=== PATIENT | male | born 1950 | race Two or more races ===

== ENCOUNTER → 2020-11-22 14:32 | Outpatient (BNVA) | payer BC, SELFPAY | PROVIDERS: PCP Internal Medicine Geriatric Medicine; Visit Provider Urology ==

== ENCOUNTER → 2020-12-20 10:32 | Outpatient (BNVA) | payer BC, SELFPAY | PROVIDERS: PCP Internal Medicine Geriatric Medicine; Visit Provider Urology ==

== ENCOUNTER → 2021-07-27 11:57 | Outpatient (BNVA) | payer BC, SELFPAY | PROVIDERS: Visit Provider Urology ==

== ENCOUNTER → 2021-10-03 10:35 | Outpatient (REF) | payer BC, SELFPAY ==
--- NOTE | ~2021-10-03 | NM_ITS ---
EXAMINATION: NM BONE SCAN OF THE WHOLE BODY CLINICAL INFORMATION: Malignant neoplasm of prostate. COMPARISON: No prior bone scan or radiographs is available for comparison. TECHNIQUE: Multiple gamma scintillation camera images of the whole body were performed 2.75 hours following the intravenous administration of 26 mCi Tc-99m MDP. FINDINGS: In the head, there is a small faint focus of increased activity present just to the left of midline in the high frontoparietal skull, probably in the anterior parietal region. In the thoracic cage and upper extremities, there is minimally increased activity in the acromioclavicular and sternoclavicular joints bilaterally and in a small focus in the superior articular surface of the left humeral head. In the spine, there is a minimal thoracolumbar scoliosis with lumbar convexity to the right. In the pelvis, no significant abnormalities are present. In the lower extremities, there is a small medullary focus of increased activity in the distal left tibia just superior to the ankle. There is minimally increased activity in the proximal tibiofibular joints bilaterally, more prominently on the right. Also a very faint focus of increased activity is present in the mid right foot. No other definite bony abnormalities are noted. The urinary bladder and faint visualization of both kidneys are noted. NM/NH bone scan whole body IMPRESSION: 1. A small lesion likely medullary in location is present in the distal left tibia and this is nonspecific. The mild intensity and medullary location suggests this is a nonaggressive lesion such as an old bone infarct or enchondroma. Correlation with plain radiographs of the distal left tibia is recommended for initial follow-up. 2. A few additional mild nonspecific abnormalities are noted as described above and these are all likely arthritic or traumatic in etiology. None of these abnormalities is strongly suspicious for metastatic disease.
== END ==
LOC: HO.NUCMED 10:35
PROVIDERS: PCP Urology; Visit Provider Urology
DX: C61 Malignant neoplasm of prostate (principal); C79.51 Secondary malignant neoplasm of bone; R97.21 Rising PSA following treatment for malignant neoplasm of prostate
CPT/HCPCS: 78306; A9503

== ENCOUNTER → 2021-11-28 11:31 | Outpatient (BNVA) | payer BC, SELFPAY | PROVIDERS: PCP Internal Medicine Geriatric Medicine; Visit Provider Urology ==

== ENCOUNTER → 2022-04-26 09:01 | Outpatient (BNVA) | payer BC, SELFPAY | PROVIDERS: PCP Internal Medicine Geriatric Medicine; Visit Provider Urology | DX: C61 Malignant neoplasm of prostate (principal) | CPT/HCPCS: 96402; J9217 ==

== ENCOUNTER 2022-08-17 09:38 | Outpatient (REF) | payer BC, SELFPAY ==
[2022-08-17 10:59] LABS: Prostate Specific Antigen < 0.05 ng/mL (<0.05-4.0)
== END 2022-08-17 09:39 | disposition home or self-care (01) ==
LOC: HO.LAB 09:38
PROVIDERS: PCP Internal Medicine Geriatric Medicine; Visit Provider Urology
DX: Z12.5 Encounter for screening for malignant neoplasm of prostate (principal); C61 Malignant neoplasm of prostate
CPT/HCPCS: 36415; 84153

== ENCOUNTER 2022-10-23 09:33 | Outpatient (REF) | payer BC, SELFPAY ==
[2022-10-23 12:11] LABS: Prostate Specific Antigen < 0.10 ng/mL (<0.05-4.0)
[2022-10-29 10:28] LABS: Testosterone, Total 2 ng/dL (250-1100)
== END 2022-10-23 09:34 | disposition home or self-care (01) ==
LOC: HO.LAB 09:33
PROVIDERS: PCP Internal Medicine Geriatric Medicine; Visit Provider Urology
DX: Z12.5 Encounter for screening for malignant neoplasm of prostate (principal); R97.21 Rising PSA following treatment for malignant neoplasm of prostate
CPT/HCPCS: 36415; 84153; 84403

== ENCOUNTER → 2022-10-26 12:47 | Outpatient (BNVA) | payer BC, SELFPAY | PROVIDERS: PCP Internal Medicine Geriatric Medicine; Visit Provider Urology | DX: C61 Malignant neoplasm of prostate (principal); R97.21 Rising PSA following treatment for malignant neoplasm of prostate | CPT/HCPCS: 96402; J9217 ==

== ENCOUNTER → 2022-11-27 13:04 | Outpatient (BNVA) | payer BC, SELFPAY | PROVIDERS: PCP Internal Medicine Geriatric Medicine; Visit Provider Urology | DX: Z13.89 Encounter for screening for other disorder (principal) ==

== ENCOUNTER 2022-12-05 11:49 | Day surgery (SDC) | payer BC, SELFPAY ==
--- NOTE | ~2022-12-05 | XR_ITS ---
EXAMINATION: XR ABDOMEN KUB CLINICAL INDICATION: Left-sided renal stone COMPARISON: None TECHNIQUE: AP view of the abdomen. FINDINGS: No suspicious calcification overlying the expected position of either kidney or ureter. Phleboliths in the pelvis. Nonobstructive bowel gas pattern. Radiopaque seeds overlie the prostate. No acute osseous abnormality. XR/XR KUB IMPRESSION: No suspicious calcification to suggest renal or ureteral calculi.
[2022-12-05 07:56] VITALS: BP 140/59; PULSE 92; RESP 18; TEMP 36.3; O2SAT 96; BMI 27.6
[2022-12-05] MEDS: Lactated Ringers 1,000 ML 999 ML IV (08:34)
[2022-12-05 08:49] LABS: Glucose, Whole Blood 221 mg/dL (60-115)
--- NOTE | 2022-12-05 09:06 | HO.ANESPROP2 ---
HPI - Anesthesia Eval Consult details Narrative: 72yr old male with prostrate ca for lithotripsy PMFSH Active Problems Active Problems: All Active Problems (Updated 11/27/22 @ 14:27 by Fernie Mendenhall MD) Nephrolithiasis (Acute) Urinary hesitancy (Acute) Rising PSA following treatment for malignant neoplasm of prostate (Acute) Prostate cancer (Acute) Weak urinary stream (Acute) Past Medical History Medical History Benign prostatic hyperplasia with lower urinary tract symptoms Chronic renal insufficiency Erectile dysfunction Nocturia Poor urinary stream Prostate cancer Shingles Urgency incontinence Family History Family history of problems with anesthesia: No Surgical History History of Problems with Anesthesia: No Social History Social History Patient Tobacco Use Status: Former Tobacco user Use of substances other than those prescribed or required for medical reasons: No Advance Directives: No Advance Directives Information Provided: Yes Meds Allergies Allergy/AdvReac Type Severity Reaction Status Date / Time No Known Allergies Allergy Verified 11/27/22 13:05 Active Medications: Current Medications Lactated Ringer's (Lr) 1,000 mls @ 999 mls/hr IV .Q1H1M MOHAN Stop: 12/05/22 10:15 Home Medications Medication Instructions Recorded Confirmed Last Taken Type atorvastatin 20 mg tablet 20 mg PO DAILY 11/22/20 10/26/22 Unknown History pioglitazone 15 mg tablet 15 mg PO DAILY 11/22/20 10/26/22 Unknown History dulaglutide 3 mg/0.5 mL mg subcut 10/26/22 10/26/22 Unknown History subcutaneous pen injector (Trulicity) glimepiride 4 mg tablet 4 mg PO BID 10/26/22 10/26/22 Unknown History metformin 500 mg tablet 500 mg PO BID 10/26/22 10/26/22 Unknown History finasteride 5 mg tablet 5 mg PO DAILY 11/27/22 Unknown History Exam Exam Date and Time: December 05, 2022905 Height,Weight and Vital Signs: Height 5 ft 2 in Weight 68.492 kg Last Vital Signs Temp 97.4 F 12/05/22 07:56 Pulse 92 12/05/22 07:56 Resp 18 12/05/22 07:56 BP 140/59 H 12/05/22 07:56 Pulse Ox 96 02/15/23 07:56 O2 Del Method 12/05/22 07:56 Pertinent Lab Results Pertinent Lab Results: Laboratory Tests 12/05/22 07:54 POC Glucose 221 H Airway Mallampati Class: II TM Dist: >3cm Neck ROM: Full Loose/Missing/Broken Teeth: Yes and Upper Heart: rrr Lungs: cta Assessment and Plan Assessment Anesthesia Assessment: Anesthesia Plan Discussed and Chart Reviewed Final Anesthetic Review Family History of Problems with Anesthesia: No History of Problems with Anesthesia: No NPO: Yes ASA Class: III Final Preanesthetic Review: No Changes in Pt Med Stat, Meds/Allgs Chart Reviewed, Consent Obtained/Reviewed and Anes Risks/Benef Reviewed Patient Risk: Low Procedure Risk: Low Anesthetic Plan Anesthetic Plan: GA, MAC: and Agree w/ Assess. and Plan Disposition: Standard PACU
--- NOTE | 2022-12-05 10:03 | W.PM.OPN ---
Operative Note Operative Note Date of Service: 12/05/22 Narrative: PreOperative Diagnosis: left proximal ureter stone Post Operative Diagnosis: left proximal ureter stone Procedure: left ureteric ESWL Surgeon: Dr Fernie Mendenhall Anesthesia: mac/sedation Indications for procedure: The patient understands ESWL may be a staged procedure and subsequent intervention may be required based on imaging after ESWL. Quoted stone clearance rates for a solitary procedure are in the 70-80% range based primarily on stone location. They also understand there is a risk of bleeding to the kidney, infection, damage to adjacent organs, and stone migration following the procedure. - Imaging 6mm left proximal on CT Procedure: After informed consent was verified the patient was brought to the operating room and placed in a supine position. Anesthesia was performed per protocol. Safety pause time-out was performed. Imaging was displayed in the room and laterality confirmed. ESWL was performed. The 1st 500 shocks were performed at 60 hertz. These were performed with increasing power. Once maximum power was reached the rate was increased to 180 hertz. A total of 3000 shocks were given. Targeted imaging with ultrasound/fluoroscopy showed stone smudging suggestive of disintegration. The patient tolerated the procedure well and was transferred to the recovery area upon completion. Post procedure imaging will be organized. There was no evidence for flank discoloration.
[2022-12-05 10:30] VITALS: BP 132/75; PULSE 80; RESP 16; TEMP 36.6; O2SAT 96
[2022-12-05 10:45] VITALS: BP 144/82; PULSE 71; RESP 18; O2SAT 96
[2022-12-05 11:00] VITALS: BP 115/71; PULSE 78; RESP 18; TEMP 36.5; O2SAT 96
== END 2022-12-05 11:56 | disposition home or self-care (01) ==
LOC: HO.SSS 11:49
PROVIDERS: PCP Internal Medicine Geriatric Medicine; Visit Provider Urology
PROC: (CPT 50590; principal; 2022-12-05 09:10)
DX: N20.1 Calculus of ureter (principal); N40.1 Benign prostatic hyperplasia with lower urinary tract symptoms; C61 Malignant neoplasm of prostate; R97.21 Rising PSA following treatment for malignant neoplasm of prostate; R39.11 Hesitancy of micturition; N18.9 Chronic kidney disease, unspecified; N52.9 Male erectile dysfunction, unspecified; Z79.899 Other long term (current) drug therapy
CPT/HCPCS: 50590; 74018; 82947; J0131; J1940; J3010

== ENCOUNTER 2023-01-09 07:38 | Outpatient (REF) | payer BC, SELFPAY ==
--- NOTE | ~2023-01-09 | US_ITS ---
EXAMINATION: US RETROPERITONEAL LIMITED (RENAL ONLY) CLINICAL INFORMATION: Calculus of kidney. COMPARISON: X-ray KUB 12/05/2022. TECHNIQUE: Real-time imaging of the kidneys. FINDINGS: RIGHT KIDNEY: 10.0 x 5.5 x 4.2 cm (SAG x AP x TRV). The kidney is normal in size, contour, and echogenicity. Renal cortical thickness is normal. 8mm simple appearing upper pole cyst which warrants no follow-up imaging. There is mild pelvic fullness versus a 2 cm parapelvic cyst. No renal calculi. LEFT KIDNEY: 11.8 x 5.6 x 3.9 cm (SAG x AP x TRV). The kidney is normal in size, contour, and echogenicity. Renal cortical thickness is normal. No calculi or focal parenchymal lesions. No hydronephrosis. US/US renal BI IMPRESSION: 1. No renal calculi or hydronephrosis of either kidney. 2. Mild fullness of the right renal pelvis versus a 2 cm parapelvic cyst.
== END 2023-01-09 07:39 | disposition home or self-care (01) ==
LOC: HO.US 07:38
PROVIDERS: PCP Internal Medicine Geriatric Medicine; Visit Provider Urology
DX: N20.0 Calculus of kidney (principal)
CPT/HCPCS: 76775

== ENCOUNTER → 2023-01-23 10:27 | Outpatient (BNVA) | payer BC, SELFPAY | PROVIDERS: PCP Internal Medicine Geriatric Medicine; Visit Provider Urology | DX: Z13.89 Encounter for screening for other disorder (principal) ==

== ENCOUNTER 2023-02-01 08:32 | Outpatient (REF) | payer BC, SELFPAY ==
[2023-02-01 09:45] LABS: Alanine Aminotransferase 34 U/L (0-40); Albumin Level 4.3 g/dL (3.5-5.0); Alkaline Phosphatase 80 U/L (39-117); Anion Gap 10 (12-20); Aspartate Amino Transferase 28 U/L (5-37); Bilirubin Total 0.6 mg/dL (0.0-1.0); Blood Urea Nitrogen 28 mg/dL (9-16); Calcium 9.7 mg/dL (8.4-10.2); Carbon Dioxide 27 mmol/L (22-29); Chloride 108 mmol/L (96-108); Cholesterol 147 mg/dL; Estimated Glomerular Filt Rate 36; Glucose Random 137 mg/dL (60-115); HDL Cholesterol 32 mg/dL; LDL Cholesterol Calculated 81 mg/dl; Potassium 4.4 mmol/L (3.3-5.1); Sodium 141 mmol/L (135-145); Total Protein 6.5 g/dL (6.5-8.0); Triglycerides 172 mg/dL
[2023-02-01 10:45] LABS: Creatinine Urine 127.63 mg/dL
== END 2023-02-01 08:33 | disposition home or self-care (01) ==
LOC: HO.LAB 08:32
PROVIDERS: Visit Provider Internal Medicine Geriatric Medicine
DX: E11.69 Type 2 diabetes mellitus with other specified complication (principal)
CPT/HCPCS: 36415; 80053; 80061

== ENCOUNTER 2023-04-10 08:36 | Outpatient (REF) | payer BC, SELFPAY ==
[2023-04-10 11:46] LABS: Prostate Specific Antigen < 0.10 ng/mL (<0.05-4.0)
[2023-04-15 21:48] LABS: Testosterone, Total 4 ng/dL (250-1100)
== END 2023-04-10 08:37 | disposition home or self-care (01) ==
LOC: HO.LAB 08:36
PROVIDERS: PCP Internal Medicine Geriatric Medicine; Visit Provider Urology
DX: Z12.5 Encounter for screening for malignant neoplasm of prostate (principal); C61 Malignant neoplasm of prostate
CPT/HCPCS: 36415; 84153; 84403

== ENCOUNTER → 2023-04-18 13:42 | Outpatient (BNVA) | payer BC, SELFPAY | PROVIDERS: Visit Provider Urology | DX: R97.21 Rising PSA following treatment for malignant neoplasm of prostate (principal); C61 Malignant neoplasm of prostate | CPT/HCPCS: 96402; J9217 ==

== ENCOUNTER 2023-07-16 08:37 | Outpatient (REF) | payer BC, SELFPAY ==
[2023-07-16 10:34] LABS: Prostate Specific Antigen < 0.10 ng/mL (<0.05-4.0)
[2023-07-21 15:13] LABS: Testosterone, Total 2 ng/dL (250-1100)
== END 2023-07-16 08:38 | disposition home or self-care (01) ==
LOC: HO.LAB 08:37
PROVIDERS: PCP Internal Medicine Geriatric Medicine; Visit Provider Urology
DX: Z12.5 Encounter for screening for malignant neoplasm of prostate (principal); R97.21 Rising PSA following treatment for malignant neoplasm of prostate
CPT/HCPCS: 36415; 84153; 84403

== ENCOUNTER 2023-07-26 12:24 | Outpatient (AMB) | payer BC, SELFPAY ==
--- NOTE | 2023-07-26 12:51 | MHC.OFFVIS ---
Intake Intake Visit Reasons: 3M PSA/TESTOSTERONE(set) Intake Note: Patient is Present for Follow Up labs Urology Medication: Doxazosin, Eligard(Q6M) Antibiotic Allergies: None Blood Thinners: None Pharmacy: [facility] Medications Patient states he has not recieved Doxazosin refills states that he needs to have refill. Patient will be traveling soon and does not want to have urinary issues while traveling. Patient states that he has been having some frequency issues. [employer] Required: No Accompanied by: Self / Same As Patient Allergies No Known Allergies Allergy (Verified 07/26/23 12:56) Medication List - Last Reconciled 07/26/23 by Fernie Mendenhall MD atorvastatin 20 mg PO DAILY doxazosin 4 mg PO BEDTIME 90 days dulaglutide (Trulicity) mg subcut empagliflozin (Jardiance) 10 mg PO DAILY glimepiride 4 mg PO BID leuprolide acetate (6 month) (Eligard) 45 mg subcut [id number] metformin 500 mg PO BID naproxen 500 mg PO BID PRN 7 days pioglitazone 15 mg PO DAILY tramadol 50 mg PO Q6H PRN tramadol 50 mg PO Q8H PRN HPI HPI Comments History of Present Illness Details Jamir Cormier is a very pleasant male. He is a patient of Dr. Stevens in [place]. He is seen for the following urologic conditions - prostate cancer - 2020 rising PSA therapy intermittent hormones - urinary hesitancy - nephrolithiasis Lab work stable Responds well to doxazosin refill provided Going to do reason for 2 week vacation oxybutynin given Continue Q 4 month lab work Nephrolithiasis Initial diagnosis through [facility] Emergency Room October 2022 Imaging - 12/13 5 mm right proximal stone with mild hydroureteronephrosis - 01/10 renal ultrasound evidence of stones Intervention' - 12/13 right ESWL Therapeutic plan - encourage fluids Prostate cancer: Low-grade, initial therapy brachytherapy 2013 rising PSA 2020 - Current therapy intermittent hormones - Last GnRH 04/12 04/12 Intermittent hormone therapy final GnRH 04/12 <0.1 T 4, 07/13 <0.1 T2 Prostate cancer was diagnosed 06/2013. PSA 4.6, volume 40 cc. Stage TI C.. The Kamilla grade is 3+3. TNM Classification of Malignant Tumours (TNM) T1c. Initial therapy included 11/03 brachytherapy urethral dose 63 chan, followup x-ray with no seed migration., PSA 4.6 Secondary therapy Initial GnRH 05/11, 11/12 Recent labs included a PSA (prostate-specific antigen) August 2014 1.5, May 2015 2.6, December 2015 3.7, start finasteride , March 2016 1.7, start bicalutamide , Sep 05 0.6 *stop bicalutamide 02/04 2.1, 06/06 2.1 - not on anything 12/08 , a PSA (prostate-specific antigen) 1.5, 11/08 1.2, 11/09 1.7, 11/10 2.4 on finasteride, 12/11 2.4 finasterdide, 07/11 4.4 off finasteride, 12/12 3.7, 04/11 4.1, 08/11 4.1, 11/12 <0.1 Recent imaging included 12/08 , a bone scan, with no evidence of metastasis. - 10/10 Bone Scan - repeat imaging no evidence of metastatic disease Erectile dysfunction Severity of the symptoms that is moderate. [facility] Medical History Chronic renal insufficiency Shingles Nocturia Poor urinary stream Benign prostatic hyperplasia with lower urinary tract symptoms Urgency incontinence Erectile dysfunction Prostate cancer Social History Patient Tobacco Use Status: Former Tobacco user Review of Systems Const Denies chills and Denies fever(s) Card Reports no additional complaints and Denies syncope Resp Denies cough GI Denies abdominal pain and Denies heartburn Reports as per HPI and Denies change in libido Neuro Denies syncope Psych Denies change in libido Endo Denies change in libido Physical Exam Const General: cooperative, healthy appearing, comfortable and no acute distress Orientation/consciousness: patient oriented x3 HEENT Face and sinus: Yes normal facial exam Mouth: moist mucous membranes Neck Neck: Yes normal visual inspection, Yes full ROM and Yes trachea midline Chest Chest palpation & inspection: normal inspection of the chest Resp Effort & Inspection: normal respiratory effort, able to speak in complete sentences and no respiratory distress GI Inspection: Yes normal to inspection Back/Spine/Pelvis Cervical Spine: normal cervical lordosis Thoracic/Lumbar Spine: thoracic and lumbar spine normal to inspection Skin General skin exam: no rashes or lesions noted Neuro General: patient oriented x3, gait normal, tone normal and moves all extremities Extrem General: Yes normal to inspection and Yes capillary refill normal Assessment & Plan Assessment & Plan (1) Nephrolithiasis: Code(s): N20.0 - Calculus of kidney (2) Urinary hesitancy: Code(s): R39.11 - Hesitancy of micturition (3) Rising PSA following treatment for malignant neoplasm of prostate: Code(s): R97.21 - Rising PSA following treatment for malignant neoplasm of prostate Plan 4 month follow-up Orders: Orders Prostate Specific Antigen 4 Months R97.21 - Rising PSA following treatment for malignant neoplasm of prostate Medications: New oxybutynin chloride ER for vacation 5 mg PO DAILY 30 tabs 1RF 30 days N32.81 - Overactive bladder, R39.11 - Hesitancy of micturition, R39.15 - Urgency of urination Refilled doxazosin 4 mg PO BEDTIME 90 tabs 1RF 90 days N13.8 - Other obstructive and reflux uropathy, N40.1 - Benign prostatic hyperplasia with lower urinary tract symptoms, R97.21 - Rising PSA following treatment for malignant neoplasm of prostate Patient Instructions: Imaging studies, laboratory and physical exam results were discussed and reviewed in detail. No major barriers to patient understanding were identified. An opportunity to ask questions regarding the treatment plan was provided. All questions were answered. The patient expressed understanding and agreement with the above treatment plan. The patient is aware they should contact our office by phone for worsening of their current condition or the appearance of new urologic symptoms. Compliance is encouraged with any medications and followup testing that is ordered. It is a privilege to participate in the urologic care of your patient. If you have any questions or concerns regarding treatment for the above conditions, or other urologic issues, please do not hesitate to contact me. The office telephone contact is [phone]. This note is constructed using voice recognition software. While every effort has been made to ensure accuracy science intern errors may have been included. Yours sincerely, Dr Fernie Mendenhall MD, [facility] - Urology Providers of Expert, Compassionate Care for the Genitourinary System Coding Level of Care Code Est Pt Level 4 (19277) Diagnoses Nephrolithiasis N20.0 Urinary hesitancy R39.11 Rising PSA following treatment for malignant neoplasm of prostate R97.21
== END 2023-07-26 13:41 | disposition home or self-care (01) ==
PROVIDERS: PCP Internal Medicine Geriatric Medicine; Visit Provider Urology
DX: N20.0 Calculus of kidney (principal); R39.11 Hesitancy of micturition; R97.21 Rising PSA following treatment for malignant neoplasm of prostate
CPT/HCPCS: 99214

== ENCOUNTER → 2023-07-26 12:24 | Outpatient (BNVA) | payer BC, SELFPAY | PROVIDERS: PCP Internal Medicine Geriatric Medicine; Visit Provider Urology ==

== ENCOUNTER 2023-09-09 08:40 | Outpatient (REF) | payer BC, SELFPAY ==
[2023-09-09 11:13] LABS: MANUAL DIFF FLAG NO
[2023-09-09 11:38] LABS: Basophils Absolute Auto 0.1 X10*3/uL (0.0-0.2); Basophils Percent Auto 1.1 % (0-2); Eosinophils Absolute Auto 0.1 X10*3/uL (0.0-0.4); Eosinophils Percent Auto 2.2 % (0-4); Hematocrit 41.7 % (42.0-52.0); Hemoglobin 12.9 g/dl (14.0-18.0); Imm Gran Abs Auto 0.04 X10*3/uL (0.00-0.03); Imm Gran Pct Auto 0.7 % (0.0-0.4); Lymphocytes Absolute Auto 1.3 X10*3/uL (1.2-4.9); Lymphocytes Percent Auto 24.3 % (20-40); Mean Corpuscular HGB Conc 30.9 g/dl (31.0-36.0); Mean Corpuscular Hemoglobin 27.1 pg (27.0-33.0); Mean Corpuscular Volume 87.6 fL (80.0-98.0); Mean Platelet Volume 11.6 fL (9.4-12.4); Monocytes Absolute Auto 0.5 X10*3/uL (0.1-1.2); Neutrophils Absolute Auto 3.3 x10*3/uL (2.0-8.3); Neutrophils Percent Auto 62.7 % (45-73); Platelet Count 235 X10*3/uL (160-400); Red Blood Count 4.76 X10*6/uL (4.60-5.80); Red Cell Distribution Width 13.6 % (11.0-16.0); White Blood Count 5.3 X10*3/uL (4.8-10.8)
[2023-09-09 12:49] LABS: Anion Gap 12 (12-20); Blood Urea Nitrogen 25 mg/dL (9-16); Calcium 10.2 mg/dL (8.4-10.2); Carbon Dioxide 27 mmol/L (22-29); Chloride 109 mmol/L (96-108); Estimated Glomerular Filt Rate 46; Glucose Random 117 mg/dL (60-115); Potassium 5.3 mmol/L (3.3-5.1); Sodium 143 mmol/L (135-145)
== END 2023-09-09 08:41 | disposition home or self-care (01) ==
LOC: HO.HHCL 08:40
PROVIDERS: Visit Provider Internal Medicine Geriatric Medicine
DX: N18.31 Chronic kidney disease, stage 3a (principal)
CPT/HCPCS: 36415; 80048; 85025

== ENCOUNTER 2023-11-21 16:50 | Outpatient (REF) | payer BC, SELFPAY ==
[2023-11-21 17:50] LABS: Prostate Specific Antigen < 0.10 ng/mL (<0.05-4.0)
== END 2023-11-21 16:51 | disposition home or self-care (01) ==
LOC: HO.LAB 16:50
PROVIDERS: PCP Internal Medicine Geriatric Medicine; Visit Provider Urology
DX: Z12.5 Encounter for screening for malignant neoplasm of prostate (principal); R97.21 Rising PSA following treatment for malignant neoplasm of prostate
CPT/HCPCS: 36415; 84153

== ENCOUNTER 2023-11-26 13:33 | Outpatient (AMB) | payer BC, SELFPAY ==
--- NOTE | 2023-11-26 14:09 | A.OFFVIS_ITS ---
Intake Intake Visit Reasons: 4m/PSA(set) Intake Note: Patient is Present for Follow Up PSA Urology Medication: Doxazosin, Oxybutynin, Antibiotic Allergies: None Blood Thinners: None Allergies No Known Allergies Allergy (Verified 07/26/23 12:56) Medication List - Last Reconciled 11/26/23 by Fernie Mendenhall MD atorvastatin 20 mg PO DAILY doxazosin 4 mg PO BEDTIME 90 days dulaglutide (Trulicity) mg subcut empagliflozin (Jardiance) 10 mg PO DAILY glimepiride 4 mg PO BID leuprolide acetate (6 month) (Eligard) 45 mg subcut [id number] metformin 500 mg PO BID naproxen 500 mg PO BID PRN 7 days oxybutynin chloride ER 5 mg PO DAILY 30 days pioglitazone 15 mg PO DAILY tramadol 50 mg PO Q6H PRN tramadol 50 mg PO Q8H PRN HPI HPI Comments History of Present Illness Details Jamir Cormier is a very pleasant male. He is a patient of Dr. Steevns in [place]. He is seen for the following urologic conditions - prostate cancer - 2020 rising PSA ther apy intermittent hormones - urinary hesitancy - nephrolithiasis Lab work stable - PSA remains undetectable Continue Q 4 month lab work Nephrolithiasis Initial diagnosis through [facility] Emergency Room October 2022 Imaging - 12/13 5 mm right proximal stone with mi ld hydroureteronephrosis - 01/10 renal ultrasound evidence of ston es Intervention' - 12/13 right ESWL Therapeutic plan - encourage fluids Prostate cancer: Low-grade, initial therapy brachytherapy 2013 rising PSA 2020 - Current therapy intermittent hormones - Last GnRH 04/12 04/12 Intermittent hormone therapy cycle - final GnRH 04/12 <0.1 T 4, 07/13 <0.1 T2, 12/14 <0.1 Prostate cancer was diagnosed 06/2013. PSA 4.6, volume 40 cc. Stage TI C.. The Kamilla grade is 3+3. TNM Classification of Malignant Tumours (TNM) T1c. Initial therapy included 11/03 brachytherapy urethral dose 63 chan, followup x-ray with no seed migration., PSA 4.6 Secondary therapy Initial GnRH 05/11, 11/12, 05/12 Recent labs included a PSA (prostate-specific antigen) August 2014 1.5, May 2015 2.6, December 2015 3.7, start finasteride , March 2016 1.7, start bicalutamide , Sep 05 0.6 *stop bicalutamide 02/04 2.1, 06/06 2.1 - not on anything 12/08 , a PSA (prostate-specific antigen) 1.5, 11/08 1.2, 11/09 1.7, 11/10 2.4 on finasteride, 12/11 2.4 finasterdide, 07/11 4.4 off finasteride, 12/12 3.7, 04/11 4.1, 08/11 4.1, 11/12 <0.1, 12/14 <0.1 Recent imaging included 12/08 , a bone scan, with no evidence of metastasis. - 10/10 Bone Scan - repeat imaging no evidence of metastatic disease Erectile dysfunction Severity of the symptoms that is moderate. [facility] Medical History Chronic renal insufficiency Shingles Nocturia Poor urinary stream Benign prostatic hyperplasia with lower urinary tract symptoms Urgency incontinence Erectile dysfunction Prostate cancer Social History Patient Tobacco Use Status: Former Tobacco user Review of Systems Const Denies chills and Denies fever(s) Card Reports no additional complaints and Denies syncope Resp Denies cough GI Denies abdominal pain and Denies heartburn Reports as per HPI and Denies change in libido Neuro Denies syncope Psych Denies change in libido Endo Denies change in libido Physical Exam Const General: cooperative, healthy appearing, comfortable and no acute distress Orientation/consciousness: patient oriented x3 HEENT Face and sinus: Yes normal facial exam Mouth: moist mucous membranes Neck Neck: Yes normal visual inspection, Yes full ROM and Yes trachea midline Chest Chest palpation & inspection: normal inspection of the chest Resp Effort & Inspection: normal respiratory effort, able to speak in complete sentences and no respiratory distress GI Inspection: Yes normal to inspection Back/Spine/Pelvis Cervical Spine: normal cervical lordosis Thoracic/Lumbar Spine: thoracic and lumbar spine normal to inspection Skin General skin exam: no rashes or lesions noted Neuro General: patient oriented x3, gait normal, tone normal and moves all extremities Extrem General: Yes normal to inspection and Yes capillary refill normal Assessment & Plan Assessment & Plan (1) Prostate cancer: Comment: Low-grade prostate cancer initial therapy brachytherapy 2013 rising PSA 2018 Code(s): C61 - Malignant neoplasm of prostate Plan Four month follow-up lab work tele Orders: Orders Prostate Specific Antigen 4 Months C61 - Malignant neoplasm of prostate Testosterone, Total 4 Months C61 - Malignant neoplasm of prostate Patient Instructions: Imaging studies, laboratory and physical exam results were discussed and reviewed in detail. No major barriers to patient understanding were identified. An opportunity to ask questions regarding the treatment plan was provided. All questions were answered. The patient expressed understanding and agreement with the above treatment plan. The patient is aware they should contact our office by phone for worsening of their current condition or the appearance of new urologic symptoms. Compliance is encouraged with any medications and followup testing that is ordered. It is a privilege to participate in the urologic care of your patient. If you have any questions or concerns regarding treatment for the above conditions, or other urologic issues, please do not hesitate to contact me. The office telephone contact is [phone]. This note is constructed using voice recognition software. While every effort has been made to ensure accuracy boxing trainer errors may have been included. Yours sincerely, Dr Fernie Mendenhall MD, [facility] - Urology Providers of Expert, Compassionate Care for the Genitourinary System Coding Level of Care Code Est Pt Level 3 (78132) Diagnoses Prostate cancer C61
== END 2023-11-26 14:26 | disposition home or self-care (01) ==
PROVIDERS: PCP Internal Medicine Geriatric Medicine; Visit Provider Urology
DX: C61 Malignant neoplasm of prostate (principal)
CPT/HCPCS: 99213

== ENCOUNTER → 2023-11-26 13:33 | Outpatient (BNVA) | payer BC, SELFPAY | PROVIDERS: PCP Internal Medicine Geriatric Medicine; Visit Provider Urology ==

== ENCOUNTER 2024-01-08 09:32 | Outpatient (REF) | payer BC, SELFPAY ==
[2024-01-08 12:22] LABS: Prostate Specific Antigen < 0.10 ng/mL (<0.05-4.0)
[2024-01-14 02:43] LABS: Testosterone, Total 4 ng/dL (250-1100)
== END 2024-01-08 09:33 | disposition home or self-care (01) ==
LOC: HO.HHCL 09:32
PROVIDERS: Visit Provider Urology
DX: Z12.5 Encounter for screening for malignant neoplasm of prostate (principal); C61 Malignant neoplasm of prostate
CPT/HCPCS: 36415; 84153; 84403

== ENCOUNTER 2024-01-30 09:38 | Outpatient (REF) | payer BC, SELFPAY ==
--- NOTE | ~2024-01-30 | XR_ITS ---
EXAMINATION: XR CERVICAL SPINE CLINICAL INFORMATION: Chronic neck pain. COMPARISON: None available. TECHNIQUE: 6 views of the cervical spine. FINDINGS: The bones are diffusely demineralized. Surgical sutures at the left lung apex. Advanced degenerative changes with loss of disc space height and hypertrophic change at C5-C6 and C6-C7. XR/XR cervical spine 4V IMPRESSION: Advanced degenerative disc disease at C5-C6 and C6-C7.
== END 2024-01-30 09:39 | disposition home or self-care (01) ==
LOC: HO.XRAY 09:38
PROVIDERS: PCP Internal Medicine Geriatric Medicine; Visit Provider Internal Medicine Geriatric Medicine
DX: M54.2 Cervicalgia (principal); G89.29 Other chronic pain
CPT/HCPCS: 72050

== ENCOUNTER 2024-03-26 10:29 | Outpatient (AMB) | payer BC, SELFPAY ==
--- NOTE | 2024-03-26 10:34 | MHC.OFFVIS ---
Intake Visit Reasons: 4m/labs(set) Intake Note: Patient is Present for Telephone Follow Up Urology Med: Oxybutynin, Doxazosin Antibiotic Allergy: None Blood Thinner: None Allergies No Known Allergies Allergy (Verified 03/26/24 10:35) HPI Comments Details: Jamir Cormier is a very pleasant male. He is a patient of Dr. Hines. He is seen for the following urologic conditions - prostate cancer - 2020 rising PSA therapy intermittent hormones - urinary hesitancy - nephrolithiasis Telemedicine Evaluation 15 min Consultation [employer] Lab work stable - PSA remains undetectable q6 month f/u 01/11 <0.1, 4 Nephrolithiasis Initial diagnosis through [facility] Emergency Room October 2022 Imaging - 12/13 5 mm right proximal stone with mild hydroureteronephrosis - 01/10 renal ultrasound evidence of stones Intervention' - 12/13 right ESWL Therapeutic plan - encourage fluids Prostate cancer: Low-grade, initial therapy brachytherapy 2013 rising PSA 2020 - Current therapy intermittent hormones - Last GnRH 04/12 04/12 Intermittent hormone therapy cycle - final GnRH 04/12 <0.1 T 4, 07/13 <0.1 T2, 12/14 <0.1 Prostate cancer was diagnosed 06/2013. PSA 4.6, volume 40 cc. Stage TI C.. The Kamilla grade is 3+3. TNM Classification of Malignant Tumours (TNM) T1c. Initial therapy included 11/03 brachytherapy urethral dose 63 chan, followup x-ray with no seed migration., PSA 4.6 Secondary therapy Initial GnRH 05/11, 11/12, 05/12 Recent labs included a PSA (prostate-specific antigen) August 2014 1.5, May 2015 2.6, December 2015 3.7, start finasteride , March 2016 1.7, start bicalutamide , Sep 05 0.6 *stop bicalutamide 02/04 2.1, 06/06 2.1 - not on anything 12/08 , a PSA (prostate-specific antigen) 1.5, 11/08 1.2, 11/09 1.7, 11/10 2.4 on finasteride, 12/11 2.4 finasterdide, 07/11 4.4 off finasteride, 12/12 3.7, 04/11 4.1, 08/11 4.1, 11/12 <0.1, 12/14 <0.1 Recent imaging included 12/08 , a bone scan, with no evidence of metastasis. - 10/10 Bone Scan - repeat imaging no evidence of metastatic disease Erectile dysfunction Severity of the symptoms that is moderate. [facility] Medical History Chronic renal insufficiency Shingles Nocturia Poor urinary stream Benign prostatic hyperplasia with lower urinary tract symptoms Urgency incontinence Erectile dysfunction Prostate cancer Social History Patient Tobacco Use Status: Former Tobacco user Review of Systems Const All systems reviewed & are unremarkable except as noted in HPI and below Reports no additional complaints Resp Reports no additional complaints GI Reports no additional complaints Reports as per HPI Musc Reports no additional complaints Physical Exam Telemedicine evaluation Appropriate responses Regular breathing rate and rhythm HEENT Head: Yes normal to inspection Ears: hearing grossly normal bilaterally Eyes General: appearance normal, both eyes and all related structures Neck Neck: Yes normal visual inspection Chest Chest palpation & inspection: normal inspection of the chest Resp Effort & Inspection: normal respiratory effort and able to speak in complete sentences Telehealth Telehealth Telehealth Platform: [employer] Location of provider rendering services: practice address Location of patient: address on file Patient Identification confirmed using: Name, : Yes Telehealth method: video Patient verbally consented to treatment: Yes Patient verbally consented to billing insurance company: Yes Patient informed of any privacy concerns related to visit: Yes Minutes spent on Phone/Video with Pt.: 15 Assessment & Plan Assessment & Plan (1) Prostate cancer: Comment: Low-grade prostate cancer initial therapy brachytherapy 2013 rising PSA 2018 Code(s): C61 - Malignant neoplasm of prostate Category: Medical (2) Nephrolithiasis: Code(s): N20.0 - Calculus of kidney Category: Medical Plan Six-month follow-up T and PSA Office Orders: Orders Testosterone, Total 6 Months R97.21 - Rising PSA following treatment for malignant neoplasm of prostate Prostate Specific Antigen 6 Months R97.21 - Rising PSA following treatment for malignant neoplasm of prostate Patient Instructions: Imaging studies, laboratory and physical exam results were discussed and reviewed in detail. No major barriers to patient understanding were identified. An opportunity to ask questions regarding the treatment plan was provided. All questions were answered. The patient expressed understanding and agreement with the above treatment plan. The patient is aware they should contact our office by phone for worsening of their current condition or the appearance of new urologic symptoms. Compliance is encouraged with any medications and followup testing that is ordered. It is a privilege to participate in the urologic care of your patient. If you have any questions or concerns regarding treatment for the above conditions, or other urologic issues, please do not hesitate to contact me. The office telephone contact is [phone]. This note is constructed using voice recognition software. While every effort has been made to ensure accuracy limousine driver errors may have been included. Yours sincerely, Dr Fernie Mendenhall MD, [facility] - Urology Providers of Expert, Compassionate Care for the Genitourinary System Coding Level of Care Code Tele Est Pt Level 3 (34781) Diagnoses Prostate cancer C61 Nephrolithiasis N20.0
== END 2024-03-26 11:03 | disposition home or self-care (01) ==
LOC: HO.HUSH 10:30
PROVIDERS: PCP Internal Medicine Geriatric Medicine; Visit Provider Urology
DX: C61 Malignant neoplasm of prostate (principal); N20.0 Calculus of kidney
CPT/HCPCS: 99442

== ENCOUNTER 2024-08-13 09:15 | Outpatient (REF) | payer BC, SELFPAY ==
[2024-08-13 11:06] LABS: MANUAL DIFF FLAG NO
[2024-08-13 11:12] LABS: Basophils Percent Auto 0.5 % (0-2); Eosinophils Absolute Auto 0.1 X10*3/uL (0.0-0.4); Eosinophils Percent Auto 1.3 % (0-4); Hematocrit 45.1 % (42.0-52.0); Hemoglobin 14.1 g/dl (14.0-18.0); Imm Gran Abs Auto 0.03 X10*3/uL (0.00-0.03); Imm Gran Pct Auto 0.5 % (0.0-0.4); Lymphocytes Absolute Auto 1.3 X10*3/uL (1.2-4.9); Lymphocytes Percent Auto 20.6 % (20-40); Mean Corpuscular HGB Conc 31.3 g/dl (31.0-36.0); Mean Corpuscular Hemoglobin 26.7 pg (27.0-33.0); Mean Corpuscular Volume 85.3 fL (80.0-98.0); Mean Platelet Volume 11.4 fL (9.4-12.4); Monocytes Absolute Auto 0.5 X10*3/uL (0.1-1.2); Monocytes Percent Auto 8.5 % (2-11); Neutrophils Absolute Auto 4.4 x10*3/uL (2.0-8.3); Neutrophils Percent Auto 68.6 % (45-73); Platelet Count 213 X10*3/uL (160-400); Red Blood Count 5.29 X10*6/uL (4.60-5.80); Red Cell Distribution Width 13.7 % (11.0-16.0); White Blood Count 6.4 X10*3/uL (4.8-10.8)
[2024-08-13 11:30] LABS: Alanine Aminotransferase 33 U/L (0-40); Albumin Level 4.4 g/dL (3.5-5.0); Alkaline Phosphatase 93 U/L (39-117); Anion Gap 14 (12-20); Aspartate Amino Transferase 34 U/L (5-37); Bilirubin Total 0.8 mg/dL (0.0-1.0); Blood Urea Nitrogen 25 mg/dL (9-16); Calcium 10.1 mg/dL (8.4-10.2); Carbon Dioxide 26 mmol/L (22-29); Chloride 109 mmol/L (96-108); Cholesterol 130 mg/dL (<200); Estimated Glomerular Filt Rate 40; Glucose Random 162 mg/dL (60-115); HDL Cholesterol 30 mg/dL (>40); LDL Cholesterol Calculated 54 mg/dL (<100); Potassium 5.4 mmol/L (3.3-5.1); Sodium 144 mmol/L (135-145); Total Protein 7.1 g/dL (6.5-8.0); Triglycerides 232 mg/dL (<150)
[2024-08-13 11:49] LABS: Creatinine Urine 137.88 mg/dL; Microalbum/Creatinine Ratio Ur 10.1 ug/mg cr (<30)
== END 2024-08-13 09:16 | disposition home or self-care (01) ==
LOC: HO.HHCL 09:15
PROVIDERS: Visit Provider Internal Medicine Geriatric Medicine
DX: E11.69 Type 2 diabetes mellitus with other specified complication (principal); N18.31 Chronic kidney disease, stage 3a; M54.2 Cervicalgia; G89.29 Other chronic pain
CPT/HCPCS: 36415; 80053; 80061; 82043; 82570; 85025

== ENCOUNTER 2024-09-22 16:17 | Outpatient (REF) | payer MEDICARE, SELFPAY ==
[2024-09-22 18:35] LABS: Prostate Specific Antigen 1.09 ng/mL (<0.05-4.0)
[2024-09-22 19:04] LABS: Anion Gap 10 (12-20); Blood Urea Nitrogen 22 mg/dL (9-16); Carbon Dioxide 28 mmol/L (22-29); Chloride 104 mmol/L (96-108); Estimated Glomerular Filt Rate 40; Glucose Random 389 mg/dL (60-115); Potassium 4.3 mmol/L (3.3-5.1); Sodium 138 mmol/L (135-145)
[2024-09-27 15:17] LABS: Testosterone, Total 275 ng/dL (250-1100)
== END 2024-09-22 16:18 | disposition home or self-care (01) ==
LOC: HO.LAB 16:17
PROVIDERS: PCP Internal Medicine Geriatric Medicine; Visit Provider Urology
DX: N18.31 Chronic kidney disease, stage 3a (principal); E87.5 Hyperkalemia; R97.21 Rising PSA following treatment for malignant neoplasm of prostate; Z12.5 Encounter for screening for malignant neoplasm of prostate
CPT/HCPCS: 36415; 80048; 84153; 84403

== ENCOUNTER 2024-09-25 13:53 | Outpatient (AMB) | payer MEDICARE, SELFPAY ==
--- NOTE | 2024-09-25 14:03 | A.OFFVIS_ITS ---
Intake Visit Reasons: 6m/labs Intake Note: Patient is Present for 6M Follow Up/LABS Urology Med:NONE Antibiotic Allergy: None Blood Thinner: None Landscape Maintenance Internship Required: No Allergies No Known Allergies Allergy (Verified 09/25/24 14:05) HPI Comments Details: Jamir Cormier is a very pleasant male. He is a patient of Dr. Hines. He is seen for the following urologic conditions - prostate cancer - 2020 rising PSA therapy intermittent hormones - urinary hesitancy - nephrolithiasis Six-month review PSA starting to rise 1.[address] PET 4 month follow-up PSA 01/11 <0.1, 4, 10/13 1.1 Nephrolithiasis Initial diagnosis through [facility] Emergency Room October 2022 Imaging - 12/13 5 mm right proximal stone with mild hydroureteronephrosis - 01/10 renal ultrasound evidence of stones Intervention' - 12/13 right ESWL Therapeutic plan - encourage fluids Prostate cancer: Low-grade, initial therapy brachytherapy 2013 rising PSA 2020 - Current therapy intermittent hormones - Last GnRH 04/12 04/12 Intermittent hormone therapy cycle - final GnRH 04/12 <0.1 T 4, 07/13 <0.1 T2, 12/14 <0.1 Prostate cancer was diagnosed 06/2013. PSA 4.6, volume 40 cc. Stage TI C.. The Kamilla grade is 3+3. TNM Classification of Malignant Tumours (TNM) T1c. Initial therapy included 11/03 brachytherapy urethral dose 63 chan, followup x-ray with no seed migration., PSA 4.6 Secondary therapy Initial GnRH 05/11, 11/12, 05/12 Recent labs included a PSA (prostate-specific antigen) August 2014 1.5, May 2015 2.6, December 2015 3.7, start finasteride , March 2016 1.7, start bicalutamide , Sep 05 0.6 *stop bicalutamide 02/04 2.1, 06/06 2.1 - not on anything 12/08 , a PSA (prostate-specific antigen) 1.5, 11/08 1.2, 11/09 1.7, 11/10 2.4 on finasteride, 12/11 2.4 finasterdide, 07/11 4.4 off finasteride, 12/12 3.7, 04/11 4.1, 08/11 4.1, 11/12 <0.1, 12/14 <0.1 Recent imaging included 12/08 , a bone scan, with no evidence of metastasis. - 10/10 Bone Scan - repeat imaging no evidence of metastatic disease Erectile dysfunction Severity of the symptoms that is moderate. [facility] Medical History Chronic renal insufficiency Shingles Nocturia Poor urinary stream Benign prostatic hyperplasia with lower urinary tract symptoms Urgency incontinence Erectile dysfunction Prostate cancer Social History Patient Tobacco Use Status: Former Tobacco user Review of Systems Const Denies chills and Denies fever(s) Card Reports no additional complaints and Denies syncope Resp Denies cough GI Denies abdominal pain and Denies heartburn Reports as per HPI and Denies change in libido Neuro Denies syncope Psych Denies change in libido Endo Denies change in libido Physical Exam Const General: cooperative, healthy appearing, comfortable and no acute distress Orientation/consciousness: patient oriented x3 HEENT Face and sinus: Yes normal facial exam Mouth: moist mucous membranes Neck Neck: Yes normal visual inspection, Yes full ROM and Yes trachea midline Chest Chest palpation & inspection: normal inspection of the chest Resp Effort & Inspection: normal respiratory effort, able to speak in complete sentences and no respiratory distress GI Inspection: Yes normal to inspection Back/Spine/Pelvis Cervical Spine: normal cervical lordosis Thoracic/Lumbar Spine: thoracic and lumbar spine normal to inspection Skin General skin exam: no rashes or lesions noted Neuro General: patient oriented x3, gait normal, tone normal and moves all extremities Extrem General: Yes normal to inspection and Yes capillary refill normal Assessment & Plan Assessment & Plan (1) Prostate cancer: Comment: Low-grade prostate cancer initial therapy brachytherapy 2013 rising PSA 2018 Code(s): C61 - Malignant neoplasm of prostate Category: Medical Plan PET-CT Four month follow-up PSA Orders: Orders PET CT fusion skull to thigh Today C61 - Malignant neoplasm of prostate, R97.21 - Rising PSA following treatment for malignant neoplasm of prostate Prostate Specific Antigen 4 Months R97.21 - Rising PSA following treatment for malignant neoplasm of prostate Patient Instructions: Imaging studies, laboratory and physical exam results were discussed and reviewed in detail. No major barriers to patient understanding were identified. An opportunity to ask questions regarding the treatment plan was provided. All questions were answered. The patient expressed understanding and agreement with the above treatment plan. The patient is aware they should contact our office by phone for worsening of their current condition or the appearance of new urologic symptoms. Compliance is encouraged with any medications and followup testing that is ordered. It is a privilege to participate in the urologic care of your patient. If you have any questions or concerns regarding treatment for the above conditions, or other urologic issues, please do not hesitate to contact me. The office telephone contact is [phone]. This note is constructed using voice recognition software. While every effort has been made to ensure accuracy women nurse errors may have been included. Yours sincerely, Dr Fernie Mendenhall MD, [facility] - Urology Providers of Expert, Compassionate Care for the Genitourinary System Coding Level of Care Code Est Pt Level 4 (47855) Diagnoses Prostate cancer C61
== END 2024-09-25 14:43 | disposition home or self-care (01) ==
PROVIDERS: PCP Internal Medicine Geriatric Medicine; Visit Provider Urology
DX: Z13.9 Encounter for screening, unspecified (principal); C61 Malignant neoplasm of prostate
CPT/HCPCS: 99214

== ENCOUNTER → 2024-09-25 13:53 | Outpatient (BNVA) | payer MEDICARE, SELFPAY | PROVIDERS: PCP Internal Medicine Geriatric Medicine; Visit Provider Urology | DX: C61 Malignant neoplasm of prostate (principal) | CPT/HCPCS: 81003; 99212 ==

== ENCOUNTER 2024-11-27 10:16 | Outpatient (REF) | payer MEDICARE, SELFPAY ==
--- OUTSIDE RECORDS SUMMARY | 2024-11-27 11:11 | XMS_ITS | Encounter Summary ---
Author Organization [employer] Address [address] [place] [address] Care Team Providers Care Cs Associate Name Role Phone Name, Baltazar CARO Primary Care Provider Reason for Visit * Reason Onset Date Comments Created In Error 07/17/2024 Encounter Details Date Type Department Care Team ([facility] st Contact Info) Description 07/17/2024 Telephone [facility] MEDICINE [address] [place], [place] [phone] Name, MD Baltazar [address] [place] [address] Created In Error Social History Tobacco Use Types Packs/Day Years Used Date Smoking Tobacco: Never Smokeless Tobacco: Never Alcohol Use Standard Drinks/Week Comments Never 0 (1 standard drink = 0.6 oz pur e alcohol) Depression Answer Date Recorded Patient Health Questionnaire-9 Score 0 01/10/2024 Patient Health Questionnaire-9 Score 0 01/10/2024 Last PHQ-9: Questionnaire Data Not on file 0 01/10/2024 Housing Stability Answer Date Recorded What is your housing situation today? I have hieu ramos 01/10/[address] you li ve. Do you have problems with any of the following? None of the above 01/10/2024 Food Insecurity Answer Date Recorded Within the past 12 months, y ou worried that your food would run out before you got money to buy more: Never True 01/10/2024 Within the past 12 months,th e food you bought just didn't last and you didn't have enough money to get more: Never True Transportation Answer Date Recorded In the past 12 months, has l ack of transportation kept you from medical appts, meetings, work or from getting things needed for daily living? No 01/10/2024 Utilities Answer Date Recorded In the past 12 months, has t he electric, gas, oil or water company threatened to shut off services in your home? No 01/10/2024 Depression Answer Date Recorded Patient Health Questionnaire-2 Score 0 01/10/2024 Sex and Gender Information Value Date Recorded Sex Assigned at Male 08/20/2022 10:34 AM EDT Legal Sex Male 10:34 AM EDT Gender Identity Male 08/20/2022 10:34 AM EDT Sexual Orientation Straight 08/20/2022 10 :34 AM EDT documented as of this encounter Plan of Treatment Upcoming Encounters Date Type Department Care Team (Late st Contact Info) Description 12/01/2024 4:00 PM EST Office Visit [facility] MEDICINE [address] [place] [address] Name, MD Baltazar [address] [place] [address] 12/04/2024 9:00 AM EST Clinical Support [facility] DIABETES/NUTRITION [address] [place] [address] [place] [address] documented as of this encounter Visit Diagnoses Not on filedocumented in this encounter Additional Health Concerns Assessment Noted Time PHQ-9 Depression Total Score: 0 01/10/20 24 3:12 PM EDT documented as of this encounter Care Teams Cs Associate Relationship Specialty Start Date End Date NameBaltazar MD [address] [place] [phone] PCP - General Family Medicine 10/03/18 documented as of this encounter
--- OUTSIDE RECORDS SUMMARY | 2024-11-27 11:11 | XMS_ITS | Encounter Summary ---
Author Organization [employer] Address [address] [place] [address] Care Team Providers Care Beef Pusher Name Role Phone Name, Baltazar CARO Primary Care Provider [phone] Reason for Visit * Reason Onset Date Comments Med Refill 07/30/2023 Encounter Details Date Type Department Care Team ([facility] st Contact Info) Description 07/30/2023 Telephone [facility] MEDICINE [address] [place], [place] [phone] Name, MD Baltazar [address] [place] [address] Med Refill Social History Tobacco Use Types Packs/Day Years Used Date Smoking Tobacco: Never Smokeless Tobacco: Never Alcohol Use Standard Drinks/Week Comments Never 0 (1 standard drink = 0.6 oz pur e alcohol) Depression Answer Date Recorded Patient Health Questionnaire-9 Score 0 10/10/2022 Housing Stability Answer Date Recorded What is your housing situation today? I have hieu ramos 07/30/[address] you li ve. Do you have problems with any of the following? None of the above 07/30/2023 Food Insecurity Answer Date Recorded Within the past 12 months, y ou worried that your food would run out before you got money to buy more: Never True 07/30/2023 Within the past 12 months,th e food you bought just didn't last and you didn't have enough money to get more: Never True 07/2023 Transportation Answer Date Recorded In the past 12 months, has l ack of transportation kept you from medical appts, meetings, work or from getting things needed for daily living? No 07/30/2023 Utilities Answer Date Recorded In the past 12 months, has t he electric, gas, oil or water company threatened to shut off services in your home? No 07/30/2023 Depression Answer Date Recorded Patient Health Questionnaire-2 Score 0 10/10/2022 Sex and Gender Information Value Date Recorded Sex Assigned at Male 08/20/2022 10:34 AM EDT Legal Sex Male 10:34 AM EDT Gender Identity Male 08/20/2022 10:34 AM EDT Sexual Orientation Straight 08/20/2022 10 :34 AM EDT documented as of this encounter Miscellaneous Notes * Telephone Encounter - Ila Roberts - 08/02/2023 10:48 AM EDT Tc from [facility] states metFORMIN (Glucophage) 500 MG tablet was supposed to be sent to [facility]/pharmacy #[id number] * Telephone Encounter - Abbi Harding LPN - 07/31/2023 12:29 PM EDT Please review request I don't see any documentation that medication was increased. * Telephone Encounter - Elissa Templeton - 07/31/2023 12:16 PM EDT TC from [facility] requesting a med refill on metFORMIN (Glucophage) 500 MG tablet pt is using medication1 tab twice a day. Script said 1 tab a day. Please to change directions. Please to be sent to [facility] Pharmacy. PCP DR. Hines documented in this encounter Plan of Treatment Upcoming Encounters Date Type Department Care Team (Late st Contact Info) Description 12/01/2024 4:00 PM EST Office Visit [facility] MEDICINE [address] [place] [address] Name, MD Baltazar [address] [place] [address] 12/04/2024 9:00 AM EST Clinical Support [facility] DIABETES/NUTRITION [address] [place], [place] [phone] Donna Whitman [address] [place], [place] [phone] documented as of this encounter Visit Diagnoses Not on filedocumented in this encounter Additional Health Concerns Assessment Noted Time PHQ-9 Depression Total Score: 0 10/10/20 22 3:39 PM EST documented as of this encounter Care Teams Beef Pusher Relationship Specialty Start Date End Date Name, MD Baltazar [address] [place], [place] [phone] PCP - General Family Medicine 10/03/18 documented as of this encounter
--- OUTSIDE RECORDS SUMMARY | 2024-11-27 11:11 | XMS_ITS | Encounter Summary ---
Author Organization [employer] Address [address] [place] [address] Care Team Providers Care Air Analyst Name Role Phone Name, Baltazar CARO Primary Care Provider [phone] Reason for Visit * Reason Onset Date Comments Nurse Triage 07/12/2023 Encounter Details Date Type Department Care Team ([facility] st Contact Info) Description 07/12/2023 Telephone [facility] MEDICINE [address] [place], [place] [phone] Name, MD Baltazar [address] [place] [address] Nurse Triage Social History Tobacco Use Types Packs/Day Years [...] encounter Miscellaneous Notes * Telephone Encounter - Kaykay Nelson RN - 07/12/2023 10:33 AM EDT Triage call with [facility] [place] [id number] Pt PORTILLO Patton, reports concern for Pt. 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 Pt has loss of appetite, when Pt eats becomes nauseous, no vomiting. Pt has lost about 10 lbs at this time. Pt is drinking liquids well. Pt has had increased tiredness/fatigue. These symptoms have been increasing for last month. Pt is neg for fever, ARNOLD symptoms. Neg for difficulty breathing, edema, or heart changes. Advised to obtain OTC supplemental drinks such as ensure if needed. Pt is offered an apt with provider but requests pcp only. Pt will be traveling to [place] and returning 08/03/23. No apts available prior to travel with PCP. Apt with PCP 08/07/23 @ 315pm. Protocol Used: Weakness (Generalized) and Fatigue (Adult) Protocol-Based Disposition: See in Office or Video Visit within 2 Weeks Positive Triage Question: * Fatigue is a chronic symptom (recurrent or ongoing AND present > 4 weeks) * All higher-acuity triage questions were negative Care Advice Discussed: * Reasons To Call Back - Unable to stand or walk - Passes out - Breathing difficulty occurs - You become worse * Telephone Encounter - Kaela Coon - 07/12/2023 9:12 AM EDT Symptom: Lethargic (Tired) Outcome: Schedule an urgent appointment (within 4 hours) or talk to a nurse or provider soon Reason: Getting worse, vomiting , trouble eating. The caller accepted this outcome Please contact at [phone] or [phone] [place] documented in this encounter Plan of Treatment Upcoming Encounters Date Type Department Care Team (Late st Contact Info) Description 12/01/2024 4:00 PM EST Office Visit [facility] MEDICINE [address] [place] [address] Name, MD Baltazra [address] [place] [address] 12/04/2024 9:00 AM EST Clinical Support [facility] DIABETES/NUTRITION [address] [place], [place] [phone] Donna Whitman RD [address] [place] [address] documented as of this encounter Visit Diagnoses Not on filedocumented in this encounter Additional Health Concerns Assessment Noted Time PHQ-9 Depression Total Score: 0 10/10/20 22 3:39 PM EST documented as of this encounter Care Teams Air Analyst Relationship Specialty Start Date End Date Baltazar Hines MD [address] [place] [phone] PCP - General Family Medicine 10/03/18 documented as of this encounter
--- OUTSIDE RECORDS SUMMARY | 2024-11-27 11:11 | XMS_ITS | Encounter Summary ---
Author Organization [facility] Address [address] [place] [address] Care Team Providers Care Development Technician Name Role Phone Name, Baltazar CARO Primary Care Provider [phone] Reason for Visit * Reason Comments Med Refill Encounter Details Date Type Department Care Team (Late st Contact Info) Description 07/14/[address] [facility] MEDICINE [address] [place] [address] [phone] NameBaltazar MD [address] [place] [address] [phone] Social History Tobacco Use Types Packs/Day Years Used Date Smoking Tobacco: Never Smokeless Tobacco: Never Alcohol Use Standard Drinks/Week Comments Never 0 (1 standard drink = 0.6 oz pur e alcohol) Depression Answer Date Recorded Patient Health Questionnaire-9 Score 0 10/10/2022 Depression Answer Date Recorded Patient Health Questionnaire-2 [...] Description 12/01/2024 4:00 PM EST Office Visit [facility] MEDICINE [address] [place] [address] [phone] Baltazar Hines MD [address] [place] [address] [phone] 12/04/2024 9:00 AM EST Clinical Support [facility] DIABETES/NUTRITION [address] [place], [place] [phone] Donna Whitman RD [address] [place], [place] [phone] documented as of this encounter Visit Diagnoses Not on filedocumented in this encounter Additional Health Concerns Assessment Noted Time PHQ-9 Depression Total Score: 0 10/10/20 22 3:39 PM EST documented as of this encounter Care Teams Development Technician Relationship Specialty Start Date End Date Name, MD Baltazar [address] [place] [address] PCP - General Family Medicine 10/03/18 documented as of this encounter
--- OUTSIDE RECORDS SUMMARY | 2024-11-27 11:12 | XMS_ITS | Encounter Summary ---
Author Organization [employer] Address [address] [place] [address] Care Team Providers Care Lpn Rn Hospice Name Role Phone Name, aBltazar CARO Primary Care Provider [phone] Reason for Visit * Reason Comments Med Refill Encounter Details Date Type Department Care Team ([facility] st Contact Info) Description 11/09/2024 Refill [facility] MEDICINE [address] [place], [place] [phone] Name, MD Baltazar [address] [place] [address] Social History Tobacco Use Types Packs/Day Years [...] Description 12/01/2024 4:00 PM EST Office Visit [facility] MEDICINE [address] [place] [phone] NameBaltazar MD [address] [place] [address] 12/04/2024 9:00 AM EST Clinical Support [facility] DIABETES/NUTRITION [address] [place] [phone] [place] [address] documented as of this encounter Visit Diagnoses Not on filedocumented in this encounter Additional Health Concerns Assessment Noted Time PHQ-9 Depression Total Score: 0 01/10/20 24 3:12 PM EDT documented as of this encounter Care Teams Lpn Rn Hospice Relationship Specialty Start Date End Date NameBaltazar MD [address] [place] [phone] PCP - General Family Medicine 10/03/18 documented as of this encounter
--- OUTSIDE RECORDS SUMMARY | 2024-11-27 11:12 | XMS_ITS | Encounter Summary ---
Author Organization [employer] Address [address] [employer] [address] 7 [place] [address] Care Team Providers Care Mud Plant Operator Name Role Phone Name, Baltazar CARO Primary Care Provider [phone] Encounter Details Date Type Department Care Team (Latest Contact Info) Description 11/10/2024 Travel Social History Tobacco Use Types Packs/Day Years [...] Description 12/01/2024 4:00 PM EST Office Visit [facility] [address] [place] [address] Name, MD Baltazar [address] [place] [address] 12/04/2024 9:00 AM EST Clinical Support [facility]NUTRITION [address] [place] [address] [place] [address] documented as of this encounter Visit Diagnoses Not on filedocumented in this encounter Additional Health Concerns Assessment Noted Time PHQ-9 Depression Total Score: 0 01/10/20 24 3:12 PM EDT documented as of this encounter Care Teams Mud Plant Operator Relationship Specialty Start Date End Date Name, MD Baltazar [address] [place] [address] PCP - General Family Medicine 10/03/18 documented as of this encounter
--- OUTSIDE RECORDS SUMMARY | 2024-11-27 11:12 | XMS_ITS | Encounter Summary ---
Author Organization [employer] Address [address] [place] [address] Care Team Providers Care Maintenance Team Member Name Role Phone Name, Baltazar CARO Primary Care Provider [phone] Reason for Visit * Reason Onset Date Comments Med Refill 03/04/2024 Encounter Details Date Type Department Care Team (Late st Contact Info) Description 03/04/2024 Refill [facility] [address] [place], [place] [phone] Name, MD Baltazar [address] [place] [address] Social History Tobacco Use Types Packs/Day Years [...] Description 12/01/2024 4:00 PM EST Office Visit [facility] [address] [place] [address] Name, MD Baltazar [address] [place] [address] 12/04/2024 9:00 AM EST Clinical Support [facility] [address] [place] [address] [place] [address] documented as of this encounter Visit Diagnoses Not on filedocumented in this encounter Additional Health Concerns Assessment Noted Time PHQ-9 Depression Total Score: 0 01/10/20 24 3:12 PM EDT documented as of this encounter Care Teams Maintenance Team Member Relationship Specialty Start Date End Date NameBaltazar MD [address] [place] [address] PCP - General Family Medicine 10/03/18 documented as of this encounter
--- OUTSIDE RECORDS SUMMARY | 2024-11-27 11:12 | XMS_ITS | Encounter Summary ---
Author Organization [employer] Address [address] [facility] 7 [place] [address] Care Team Providers Care Furnace Cleaner Name Role Phone Name, Baltazar CARO Primary Care Provider Encounter Details Date Type Department Care Team (Latest Contact Info) Description 11/04/2024 Travel Social History Tobacco Use Types Packs/Day [...] Description 12/01/2024 4:00 PM EST Office Visit [facility] [address] [place] [address] Name, MD Baltazar [address] [place] [address] 12/04/2024 9:00 AM EST Clinical Support [facility] DIABETES/NUTRITION [address] [place] [address] [place] [address] documented as of this encounter Visit Diagnoses Not on filedocumented in this encounter Additional Health Concerns Assessment Noted Time PHQ-9 Depression Total Score: 0 01/10/20 24 3:12 PM EDT documented as of this encounter Care Teams Furnace Cleaner Relationship Specialty Start Date End Date Name, MD Baltazar [address] [place] [address] PCP - General Family Medicine 10/03/18 documented as of this encounter
--- OUTSIDE RECORDS SUMMARY | 2024-11-27 11:12 | XMS_ITS | Encounter Summary ---
Author Organization [employer] Address [address] [place] [address] Care Team Providers Care Dna Analyst Name Role Phone Name, Baltazar CARO Primary Care Provider [phone] Reason for Visit * Reason Onset Date Comments Medication Question 02/04/2024 Encounter Details Date Type Department Care Team ([facility] st Contact Info) Description 02/04/2024 Telephone [facility] [address] [place], [place] [phone] Name, MD Baltazar [address] [place] [address] Medication Question Social History Tobacco Use Types Packs/Day Years [...] encounter Miscellaneous Notes * Telephone Encounter - Leti Becerril RN - 02/05/2024 2:22 PM EDT Return T/C for below message from , advised to speak with the pharmacist where pt.. usually refill his prescription to get more thorough details about interaction with another medication. verbally agreed and understood. * Telephone Encounter - Leti Becerril RN - 02/05/2024 1:55 PM EDT Return T/C to pt. For below message, No answer. LVM to call back on [phone]. * Telephone Encounter - Kaela Coon - 02/04/2024 10:26 AM EDT Tc from pt spouse requesting a call back, states has OTC probiotics and would like to know if Pt isokay to take. Please contact at [phone] French documented in this encounter Plan of Treatment Upcoming Encounters Date Type Department Care Team (Late st Contact Info) Description 12/01/2024 4:00 PM EST Office Visit [facility] [address] [place] [address] Name, MD Baltazar [address] [place] [address] 12/04/2024 9:00 AM EST Clinical Support [facility] DIABETES/NUTRITION [address] [place], [place] [phone] Donna Whitman RD [address] [place] [address] documented as of this encounter Visit Diagnoses Not on filedocumented in this encounter Additional Health Concerns Assessment Noted Time PHQ-9 Depression Total Score: 0 01/10/20 24 3:12 PM EDT documented as of this encounter Care Teams Dna Analyst Relationship Specialty Start Date End Date Name, [place] [address] PCP - General Family Medicine 10/03/18 documented as of this encounter
--- OUTSIDE RECORDS SUMMARY | 2024-11-27 11:12 | XMS_ITS | Clinical Summary ---
Author Organization [employer] Address [address] [place] [address] [place], [place] [address] Care Team Providers Care Gear Shaper Set Up Operator Name Role Phone Name, Baltazar CARO Primary Care Provider [phone] Allergies No known active allergies Medications leuprolide, 6-month, (Eligard) 45 MG injection Active metFORMIN (Glucophage) 500 MG tablet Take 1 tablet (500 mg) by mouth with breakfast and with evening meal. 180 tablet 2 08/19/20 24 025 Active atorvastatin (Lipitor) 20 MG tablet TAKE 1 TABLET BY MOUTH EVERY DAY 90 tablet 1 08/19/20 24 Active Dulaglutide (Trulicity) 4.5 MG/0.5ML solution auto-injector Indications:T ype 2 diabetes mellitus with other specified complication, without long-term current use of insulin ([facility]) Inject 4.5 mg under the skin 1 (one) time per week. 2 mL 3 08/19/20 24 025 Active glucose blood (OneTouch Verio) test stripIndicati ons:Type 2 diabetes mellitus with other specified complication, without long-term current use of insulin ([facility]) Use one test strip to check blood sugar by subcutaneous route once per day. DiagnosisType 2 diabetes mellitus with other complication without use of insuliln ([facility]) Code: E11.69 100 strip 3 08/21/20 24 Active Veltassa 8.4 g pack DISSOLVE 1 PACKET AND TAKE BY MOUTH ONCE DAILY 30 each 11/10/19 25 Active Patiromer Sorbitex Calcium 8.4 g pack Take 8.4 g by mouth Once per day. 30 each 10/08/20 24 025 Discontinued Active Problems Problem Noted Date Diagnosed Date Stage 3a chronic kidney disease (CKD) 09/08/2022 Paralysis of diaphragm 09/08/2022 Type 2 diabetes mellitus with other specified co mplication 10/03/2018 Assessment & Plan (09/29/2024 8:10 AM EST): POCT glucose 153 A1C 8.7 Dietary and exercise counseling Patient to continue with prescribed meds-Trulicity to 4.5 weekly & metformin 500 mg bid Referral to utility bill collector Obstructive sleep apnea syndrome 10/03/2018 Malignant tumor of prostate 10/03/2018 Encounters Date Type Department Care Team Description 11/10/2024 9:00 AM EST Nutrition [facility] DIABETES/NUTRITION [address] [place] [address] Type 2 diabetes mellitus with other specified complication, without long-term current use of insulin (CMS/HCC) 11/10/2024 Travel 11/09/2024 Refill [facility] MEDICINE [address] [place] [address] Baltazar Hines MD 11/04/2024 Travel 10/08/2024 Telephone [facility] [address] [place] [address] Baltazar Hines MD Med Refill 09/25/2024 3:30 PM EST Office Visit [address] [address] Lona Dsouza FNP Type 2 diabetes mellitus with other specified complication, without long-term current use of insulin ([facility]) (Primary Dx) 09/24/2024 Telephone [facility] MEDICINE [address] [place] [address] Lani Mayo MA Chart Prep 09/22/[address] [address] Sallie Lacy NP 09/22/2024 Orders Only GENERIC EXTERNAL DATA DEPARTMENT Provider, Generic External Data 09/18/2024 Travel 09/15/2024 Telephone [facility] [address] [place] [address] Sudheer, Candy, RN from Last 3 Months Immunizations Name Administration Dates Next Due Influenza High-dose Quadriva lent Preservative Free 07/25/2023,08/08/2021 Influenza injectable quadriv alent preservative free 10/03/2018 Influenza, High Dose Seasona l, Preservative Free 08/19/2024,08/14/2022,10/02/2019 Moderna Covid-19 Vaccine 12+ 01/21/2022, 09/18/2021,01/12/2021,2020 Pfizer Covid-19 Vaccine 12+ 08/19/2024 Pneumococcal Conjugate PCV 20 09/09/2023 Tdap 09/09/2023 Zoster, Recombinant 01/09/2022,08/08/2021 Social History Tobacco Use Types Packs/Day Years Used Date Smoking Tobacco: Never Smokeless Tobacco: Never Tobacco Cessation:Counseling Given: Not Answered Alcohol Use Standard Drinks/Week Comments Never 0 [...] Orientation Straight 08/20/2022 10 :34 AM EDT Last Filed Vital Signs Vital Sign Reading Time Taken Comments Blood Pressure 124/80 09/25/2024 3:26 PM EST Pulse 82 09/25/2024 3:26 PM EST Temperature 36.2 ??C (97.1 ??F) 01/10/2024 3:08 PM ED T Respiratory Rate 18 09/25/2024 3:26 PM EST Oxygen Saturation 97% 08/19/2024 3:52 PM EDT Inhaled Oxygen Concentration - - Weight 67.9 kg (149 lb 12.8 oz) 11/10/2024 2:35 PM EST Height 157.5 cm (5' 2 ) 11/10/2024 2:35 PM EST Body Mass Index 27.4 11/10/2024 2:35 PM EST Plan of Treatment Upcoming Encounters Date Type Department Care Team (Late st Contact Info) Description 12/01/2024 4:00 PM EST Office Visit [facility] MEDICINE [address] [place] [address] Name, MD Baltazar [address] [place] [address] 12/04/2024 9:00 AM EST Clinical Support [facility] DIABETES/NUTRITION [address] [place] [address] [place] [address] Health Maintenance Due Date Last Done Comments CT Colonography 1951 FIT DNA/Cologuard 1951 FIT 1951 FOBT 1951 Sigmoidoscopy 1951 Eye Exam 1961 Alcohol/Substance Use Screening 1963 Hepatitis C Screening 1969 Diabetes: Hemoglobin A1C 12/24/2024 024, 08/19/2024, 01/10/2024, Additional history exists Depression Screening 01/09/2025 01/10/2024, 03/22/20 24 Diabetes: Foot Exam 01/09/2025 01/10/2024, 01/10/2024, 01/10/2024, Additional history exists SDOH Screening 01/09/2025 01/10/2024 Colonoscopy 04/19/2025 04/19/2015 Colorectal Cancer Screening 04/19/2025 Diabetes: Urine Protein Screening 08/13/2025 08/13/2024, 04/18/2023, 02/01/2023, Additional history exists Lipid Panel 08/13/2025 08/13/2024, 03/22, 02/01/2023, Additional history exists Tobacco Screening 08/19/2025 08/19/2024 RSV Patients and Patients Aged 60 years or older (1 - 1-dose 75+ series) 2026 DTaP/Tdap/Td Vaccines (2 - Td or Tdap) 09/09/2033 09/09/2023 Zoster Vaccines Completed 01/09/2022, 08/08/2021 Pneumococcal Vaccine: 50+ Years Completed 09/09/2023 COVID-19 Vaccine Completed 08/19/2024, 02/2023, 08/24/2022, Additional history exists Influenza Vaccine Completed 08/19/2024, , 08/14/2022, Additional history exists HIB Vaccines Aged Out No longer eligi ble based on patient's age to complete this topic HPV Vaccines Aged Out No longer eligi ble based on patient's age to complete this topic Hepatitis A Vaccines Aged Out No long er eligible based on patient's age to complete this topic Hepatitis B Vaccines Aged Out No long er eligible based on patient's age to complete this topic IPV Vaccines Aged Out No longer eligi ble based on patient's age to complete this topic Meningococcal Vaccine Aged Out No brie gloria eligible based on patient's age to complete this topic RSV under 20 months Aged Out No longe r eligible based on patient's age to complete this topic Rotavirus Vaccines Aged Out No longer eligible based on patient's age to complete this topic Procedures Procedure Name Priority Date/Time Associated Diagnosis Comments POCT GLUCOSE Routine 09/25/2024 3:57 PM EST Type 2 diabetes mellitus with other specified complication, without long-term current use of insulin ([facility]) POCT GLYCATED HEMOGLOBIN, TOTAL Routine 09/25/2024 3:56 PM EST Type 2 diabetes mellitus with other specified complication, without long-term current use of insulin (CMS/HCC) TESTOSTERONE, TOTAL, MALES (ADULT), IA Routine 09/22/2024 4:31 PM EST PSA, TOTAL Routine 09/22/2024 4:31 PM EST BASIC METABOLIC PANEL Routine 09/22/2024 4:31 PM EST Stage 3 chronic kidney disease, unspecified whether stage 3a or 3b CKD (CMS/HCC) Hyperkalemia ALBUMIN, RANDOM URINE W/CREATININE Routine 08/13/2024 9:20 AM EDT Type 2 diabetes mellitus with other specified complication, without long-term current use of insulin (CMS/HCC) Stage 3a chronic kidney disease (CKD) (CMS/HCC) Chronic neck pain LIPID PANEL, STANDARD Routine 08/13/2024 9:20 AM EDT Type 2 diabetes mellitus with other specified complication, without long-term current use of insulin (CMS/HCC) Stage 3a chronic kidney disease (CKD) (CMS/HCC) Chronic neck pain HM COLONOSCOPY Routine 04/19/2015 from Last 3 Months or Most Recently Relevant to Health Maintenance Results * POCT Glucose (09/25/2024 3:57 PM EST) Pathologist [facility] Glucose Blood, POC 153 60 - 200 mg/dL QC Media Lot # [id number] Lot# Expiration Date [id number] Blood Capillary blood specimen / Unknown 09/25/2024 3:57 PM EST Lona Dsouza [facility] POINT OF CARE TEST ENTER/EDIT ORDERABLES Final Result * (ABNORMAL) POCT HGB A1C (09/25/2024 3:56 PM EST) Hemoglobin A1C 8.7(A) 4.0 - 6.0 % QC Media Lot # [id number] Lot# Expiration Date [id number] Blood 09/25/2024 3:56 PM EST us Lona Evelynedarinel HOUSE DIRECTOR POINT OF CARE TEST ENTER/EDIT ORDERABLES Final Result * Testosterone, Total, males (Adult), IA (09/22/2024 4:31 PM EST) Testosterone, Total 275 250 - 1100 ng/dL [facility] Comment:Men with clinically significant hypogonadalsymptoms and testosterone values repeatedly inthe range of the 200-300 ng/dL or less, maybenefit from testosterone treatment afteradequate risk and benefits counseling.For additional information, please refer tohttp://education.Principle [employer].Artklikk/faq/Gh[email or web address](This link is being provided for informational/educational purposes only.)This test was developed and its analytical performancecharacteristics have been determined by [employer] [place], [place]. It hasnot been cleared or approved by the U.S. Food and DrugAdministration. This assay has been validated pursuantto the CLIA regulations and is used for clinicalpurposes.THIS TEST WAS PERFORMED AT:[employer]/[id number] [place] [address]UDPRMDPEFRA DEUTSCH MD,PHD 09/22/2024 4:31 PM EST 09/22/2024 4:31 PM EST us Generic External Data Provider LAB BLOOD ORDERAB LES Final Result [facility] [address] [place] [phone] * PSA,Total (09/22/2024 4:31 PM EST) Prostate Specific Antigen 1.09 <0.05 - 4.0 ng/mL [facility] Comment:PSA methodology: Abb brock Garcia i ChemiluminescentMicroparticle Immunoassay (CMIA) 09/22/2024 4:31 PM EST 09/22/2024 4:31 PM EST us Generic External Data Provider LAB BLOOD ORDERAB LES Final Result Performing Organization Address [facility]/ZIP Co de Phone Number [facility] [address] [place] [phone] * (ABNORMAL) Basic Metabolic Panel (09/22/2024 4:31 PM EST) Sodium 138 135 - 145 mmol/L [facility] Potassium 4.3 3.3 - 5.1 mmol/L [facility] Chloride 104 96 - 108 mmol/L [facility] Carbon Dioxide 28 22 - 29 mmol/L [facility] Anion Gap 10(L) 12 - 20 [facility] Urea Nitrogen (BUN) 22(H) 9 - 16 mg/dL [facility] Creatinine, Serum 1.68(H) 0.5 - 1.4 mg/dL [facility] Estimated Glomerular Filt Rate 40 [facility] Comment:Chronic Kidney Disea se: Estimated GFR < 60 mL/min/1.43y1Raaebn Kidney Disease: Estimated GFR < 15 mL/min/1.73m2 Glucose 389(HH) 60 - 115 mg/dL [facility] Comment:Critical value for t est(GLU): Results called to and readback by: SALLIE ENG NP Person calling: CESAR Date:09/22/24 Time: 1901 Calcium 10.0 8.4 - 10.2 mg/dL [facility] Blood Venous blood specimen / Unknown 09/22/2024 4:31 PM EST 09/22/2024 4:31 PM EST us Baltazar Hines MD LAB BLOOD ORDERABLES Final Resul t Performing Organization Address [facility] Co de Phone Number [facility] [address] [place] [phone] * Albumin, Random Urine W/Creatinine (08/13/2024 9:20 AM EDT) Creatinine, Urine 137.88 mg/dL [facility] Microalbumin Urine 14.0 mg/L [facility] Microalbum Creatinine Ratio Ur 10.1 <30 ug/mg cr [facility] Comment:Albumin/Creatinine R atio Reference Ranges: Normal: < 30 ug/mg creatinine Microalbuminuria: 30 - 300 ug/mg creatinineClinical Albuminuria: > 300 ug/mg creatinine Urine (Urine, Random) 08/13/2024 9:20 AM EDT 08/13/2024 10:55 AM EDT us Baltazar Name LAB URINE ORDERABLES Final Resul t [facility] [address] [place] [phone] * (ABNORMAL) Lipid Panel, Standard (08/13/2024 9:20 AM EDT) Triglycerides 232(H) <150 mg/dL [facility] Comment:Desirable Triglyceri de: less than 150 mg/dLBorderline High Triglyceride 150-199 mg/dLHigh Triglyceride: 200-499 mg/dLVery High Triglyceride: greater than or equal to 5OO mg/dL Cholesterol 130 <200 mg/dL [facility] Comment:Desirable Cholestero l: less than 200 mg/dLBorderline High Cholesterol: 200-239 mg/dLHigh Cholesterol: greater than 239 mg/dL LDL Cholesterol Calculated 54 <100 mg/dL [facility] Comment:Desirable LDL: less than 100 mg/dLNear Optimal/Above Optimal LDL: 110- 129 mg/dLBorderline High LDL: 130-159 mg/dLHigh LDL: 160-189 mg/dLVery High LDL: greater than or equal to 190 mg/dL HDL Cholesterol 30(L) >40 mg/dL [facility] Comment:Desirable HDL: great er than 40 mg/dL Note: This HDL assay may give artificially low results in patients with liver disease. Blood Venous blood specimen / Unknown 08/13/2024 9:20 AM EDT 08/13/2024 10:59 AM EDT Baltazar Hines MD LAB BLOOD ORDERABLES Final Resul t [facility] [address] [place] [phone] [phone] * Colonoscopy (04/19/2015) Colonoscopy Normal Normal Baltazar Hines MD HEALTH MAINTENANCE Final Result from Last 3 Months or Most Recently Relevant to Health Maintenance Insurance MEDICARE Care Teams Gear Shaper Set Up Operator Relationship Specialty Start Date End Date Name, MD Baltazar [address] [place] [phone] PCP - General Family Medicine 10/03/18
--- OUTSIDE RECORDS SUMMARY | 2024-11-27 11:12 | XMS_ITS | Encounter Summary ---
Author Organization [employer] Address [address] [place] [address] Care Team Providers Care Patient Ombudsperson Name Role Phone Name, Baltazar CARO Primary Care Provider [phone] Reason for Visit * Reason Onset Date Comments Med Refill 02/10/2024 Encounter Details Date Type Department Care Team (Late st Contact Info) Description 02/10/2024 Refill [facility] [address] [place], [place] [phone] Name, MD Baltazar [address] [place] [address] Social History Tobacco Use Types Packs/Day Years [...] Description 12/01/2024 4:00 PM EST Office Visit [facility] [address] [place] [phone] Name, MD Baltazar [address] [place] [phone] 12/04/2024 9:00 AM EST Clinical Support [facility] DIABETES/NUTRITION [address] [place] [phone] [place] [phone] documented as of this encounter Visit Diagnoses Not on filedocumented in this encounter Additional Health Concerns Assessment Noted Time PHQ-9 Depression Total Score: 0 01/10/20 24 3:12 PM EDT documented as of this encounter Care Teams Patient Ombudsperson Relationship Specialty Start Date End Date NameBaltazar MD [address] [place] [phone] PCP - General Family Medicine 10/03/18 documented as of this encounter
--- OUTSIDE RECORDS SUMMARY | 2024-11-27 11:12 | XMS_ITS | Encounter Summary ---
Author Organization [facility] Address [address] [place] [address] Care Team Providers Care Accuracy Expert Name Role Phone Name, Baltazar CARO Primary Care Provider [phone] Reason for Visit * Consultation (Routine) - Authorized Specialty Diagnoses / Procedures Referred By Yohan ocampo Referred To Contact Nutrition Diagnoses Type 2 diabetes mellitus with other specified complication, without long-term current use of insulin (CMS/HCC) Lona Dsouza FNP [address] [place] [address] Phone: tel: fax: Referral ID Status Reason Start Date Expiration Date Visits Requested Visits Authorized [id number] Authorized Specialty Services Required 09/25/2024 09/25/2025 1 1 Encounter Details Date Type Department Care Team ([facility] st Contact Info) Description 11/10/2024 9:00 AM EST Nutrition [facility] DI[facility]NUTRITION [address] [place], [place] [phone] Donna Whitman RD [address] [place], [place] [phone] Type 2 diabetes mellitus with other specified complication, without long-term current use of insulin (CMS/HCC) Social History Tobacco Use Types Packs/Day Years [...] AM EDT documented as of this encounter Last Filed Vital Signs Vital Sign Reading Time Taken Comments Blood Pressure - - Pulse - - Temperature - - Respiratory Rate - - Oxygen Saturation - - Inhaled Oxygen Concentration - - Weight 67.9 kg (149 lb 12.8 oz) 11/10/2024 2:35 PM EST Height 157.5 cm (5' 2 ) 11/10/2024 2:35 PM EST Body Mass Index 27.4 11/10/2024 2:35 PM EST documented in this encounter Progress Notes * Donna Whitman RD - 11/10/2024 9:00 AM EST In Person Visit Medical Diagnosis: E11.69 Type 2 diabetes mellitus with other specified complication, without long- term current use ofinsulin Anthropometrics: Ht: 62 , Wt: 149.8 lbs., BMI: 27.40 Assessment: Patient (Pt) accepted nutrition education assessment appointment with STEPHANIE. RD took Pt's weight. Weight revealed a decrease of about two (2) pounds since last noted here in Pt's chart on 09/25/[address] took 24 hour recall/ typical daily intake from Pt. Intake revealed Pt is watchful of his carbohydrate intake. Although, knowing portion controls and how many carbohydrates a one time will be addressed in the following appointment. Overall, Pt's intake is high in carbohydrates and low in fruit, fiber, healthy fats, whole grains, cooked and fresh vegetables- does meet this on some days. Protein is on most days is being met. Today, Pt only did the first half of First appointment. Once the second half of First appointment is finished, RD will fill in Nutrition Diagnosis, Nutrition Intervention, Nutritional Goals, Monitoring and Evaluation along with Pt's meal plan to be followed by Pt with their agreement. The second half of First appointment is scheduled in the second week November 2024. Until then, RD made a couple of suggestions and Pt agreed to accomplish them before next appointment with RD. They are: Take a 10 to 15 minute walk daily Get the drink mix called: Calm which is a magnesium citrate supplement. RD gave directions in how to mix it and take it. Go to [employer] for all sweets that Pt desires. Food Allergies: NKFA Exercise: Not much at this time. Pt agreed to take 10 - 15 minute walks daily. Food Intolerance: Possibly, lactose. Food Preferences: Eggs, beef, hamburger, pork, sausages, leach, ham, cheeses, chicken, turkey, hot dogs, cod fish, wild caught salmon, root vegetables, lettuce- spring mix, tomatoes, cucumbers, carrots, onions, garlic, avocados, EVOO, butter, S.F. hazelnut creamer, coffee, water, seltzer water, nuts, chocolate cookies, oatmeal cookies, oatmeal, cereals, crackers- white and whole grain, kombusha drink, rice, beans,bananas, donuts- plain & honey glazed, apple cider vinegar Food Dislikes: Didn't say Frequency of Eating Out/ Restaurant: Not a norm Who Cooks?: Patient and How much caffeine?: coffee 1-2 cups /day How much sugary beverages?: None; unless having kombusha drink: 1+ cup Diet History: Breakfast: Mix of cereals: 1+ cups Soy milk: amount ~1/2 cup Coffee: 1 cup Sugar free hazelnut: 1-2 oz. Water: 1/2 cup Snack: 2 x's or so a week; other zafar, none/ skips Donut, plain or glazed: one Or Oatmeal cookies: one Water 1/2 - 1 cup Lunch: 2 x's per week; other zafar, skips. Hamburger: 2-3 oz. Hot dog: one Sauerkraut: 1/3 cup Onions: 1/4 cup Water: 1-2 cups Snack: None Water: 1/2 + cups Dinner: Meat/ protein (beef, chicken, turkey, pork, seafood, fish- cod, salmon, pollock): 8 oz. Rice: 1/3 cup Beans: 1/3 cup or so Water: 1+ cups Fresh spring mix salad, with tomatoes, cucumbers, shaved carrot strips: 1-2 cups Water: 1+ cups Snack: none Nutrition Diagnosis: 1st half of First appointment was done today. When the 2nd half of First appointment is finished/ done, this area will be filled in. Nutrition Intervention: 1st half of First appointment was done today. When the 2nd half of First appointment is finished/ done, this area will be filled in. Monitoring and Evaluation: 1st half of First appointment was done today. When the 2nd half of First appointment is finished/ done, this area will be filled in. Provider: Donna Whitman RD, CODEY documented in this encounter Plan of Treatment Upcoming Encounters Date Type Department Care Team (Late st Contact Info) Description 12/01/2024 4:00 PM EST Office Visit [facility] [address] [place] [address] Name, MD Baltazar [address] [place] [address] 12/04/2024 9:00 AM EST Clinical Support [facility] DIABETES[facility]NUTRITION [address] [place] [address] [place] [address] documented as of this encounter Visit Diagnoses Diagnosis Type 2 diabetes mellitus with other specified complication, without long-term current use of insulin ([facility]) documented in this encounter Additional Health Concerns Assessment Noted Time PHQ-9 Depression Total Score: 0 01/10/20 24 3:12 PM EDT documented as of this encounter Care Teams Accuracy Expert Relationship Specialty Start Date End Date Name, MD Baltazar [address] [place] [address] PCP - General Family Medicine 10/03/18 documented as of this encounter
[2024-11-27 12:03] LABS: Anion Gap 13 (12-20); Blood Urea Nitrogen 27 mg/dL (9-16); Calcium 9.4 mg/dL (8.4-10.2); Carbon Dioxide 24 mmol/L (22-29); Chloride 107 mmol/L (96-108); Estimated Glomerular Filt Rate 47; Glucose Random 234 mg/dL (60-115); Potassium 4.1 mmol/L (3.3-5.1); Sodium 140 mmol/L (135-145)
== END 2024-11-27 10:17 | disposition home or self-care (01) ==
LOC: HO.HHCL 10:16
PROVIDERS: Visit Provider Internal Medicine Geriatric Medicine
DX: E87.5 Hyperkalemia (principal)
CPT/HCPCS: 36415; 80048

== ENCOUNTER 2024-12-08 11:37 | Outpatient (REF) | payer MEDICARE, SELFPAY ==
--- NOTE | ~2024-12-08 | XR_ITS ---
CLINICAL HISTORY: SKIN INFECTION Radiographs of the left 5th toe, 3 views, 4 images Comparison: None Findings: No cortical destruction or periostitis to indicate osteomyelitis. No acute fracture or dislocation. Fixation hardware in the distal fibula and tibia. No degenerative change. Bone mineralization is decreased. Soft tissue swelling. Impression: No radiographic evidence of osteomyelitis. Follow up if symptoms persist or worsen. This document has been electronically signed by: Marisa Parks MD on 12/08/2024 13:09:30
--- OUTSIDE RECORDS SUMMARY | 2024-12-08 12:50 | XMS_ITS | Encounter Summary ---
Author Organization [employer] Address [address] [facility] [address], [place] [address] Care Team Providers Care Medical Office Scheduler Name Role Phone Name, Baltazar CARO Primary Care Provider [phone] Encounter Details Date Type Department Care Team (Latest Contact Info) Description 12/04/2024 9:00 AM EST Clinical Support [facility] DIABETES/NUTRITION 230 [place], [place] [phone] Donna Whitman RD 230 [place], [place] [phone] Type 2 diabetes mellitus with other specified complication, without long-term current use of insulin ([facility]) (Primary Dx) Social History Tobacco Use Types Packs/Day Years [...] your housing situation today? I have hieu sing 01/10/[address] you li [...] AM EDT documented as of this encounter Progress Notes * Donna Whitman, STEPHANIE - 12/04/2024 9:00 AM EST In Person Visit Medical Diagnosis: E11.69 Type 2 diabetes mellitus with other specified complication, without long- term current use ofinsulin Anthropometrics: On 11/10/2024, Ht: 62 , Wt: 149.8 lbs., BMI: 27.40 Assessment: Patient (Pt) and Pt's , Pooja, accepted nutrition education assessment appointment with RD. RD took Pt's weight on 11/10/2024. This is the weight used for today. Today, RD gave the first half of second appointment. Once the second half of First appointment is finished, RD will fill in nutrition diagnosis, nutrition Intervention, goals, Tailored made meal plan, monitoring and evaluation will be put into Pt's chart here. Thus, all is to be followed by Pt withtheir agreement. The second half of First nutrition education assessment appointment is scheduled in the second weekof December 2024. RD still suggested for Pt to do suggestions given on 11/10/2024. Pt has been working on them. Food Allergies: NKFA Exercise: Not much at [...] having kombusha drink: 1+ cup Diet History: Below is a copy of 11/10/2024's intake here in RD's note on this date used for today. Breakfast: Mix of cereals: 1+ cups Soy [...] Care Team (Late st Contact Info) Description 01/01/2025 1:30 PM EDT Clinical Support [facility] DIABETES/NUTRITION [address] [place] [address] [place] [address] documented as of this encounter Visit Diagnoses Diagnosis Type 2 diabetes mellitus with other specified complication, without long-term current use of insulin ([facility])- Primary documented in this encounter Additional Health Concerns Assessment Noted Time PHQ-9 Depression Total Score: 0 01/10/20 24 3:12 PM EDT documented as of this encounter Care Teams Medical Office Scheduler Relationship Specialty Start Date End Date Name, MD Baltazar [address] [place] [address] PCP - General Family Medicine 10/03/18 documented as of this encounter
--- OUTSIDE RECORDS SUMMARY | 2024-12-08 12:50 | XMS_ITS | Encounter Summary ---
Author Organization [employer] Address [address] [place] [address] Care Team Providers Care Quarter Lining Smoother Name Role Phone Name, Baltazar CARO Primary Care Provider [phone] Reason for Visit * Reason Onset Date Comments Med Refill 02/10/2024 Encounter Details Date Type Department Care Team (Late st Contact Info) Description 02/10/2024 Refill [facility] MEDICINE [address] [place], [place] [phone] Name, MD Baltazar [address] [place] [address] Social History Tobacco Use Types Packs/Day Years [...] Description 01/01/2025 1:30 PM EDT Clinical Support [facility] DIABETES/NUTRITION [address] [place] [address] [place] [address] documented as of this encounter Visit Diagnoses Not on filedocumented in this encounter Additional Health Concerns Assessment Noted Time PHQ-9 Depression Total Score: 0 01/10/20 24 3:12 PM EDT documented as of this encounter Care Teams Quarter Lining Smoother Relationship Specialty Start Date End Date Name, MD Baltazar [address] [place] [address] PCP - General Family Medicine 10/03/18 documented as of this encounter
--- OUTSIDE RECORDS SUMMARY | 2024-12-08 12:50 | XMS_ITS | Encounter Summary ---
Author Organization [employer] Address [address] [facility] 7 [place] [address] Care Team Providers Care Veneer Cutter Name Role Phone Name, Baltazar CARO Primary Care Provider [phone] Encounter Details Date Type Department Care Team (Latest Contact Info) Description 12/04/2024 Travel Social History Tobacco Use Types Packs/Day [...] Description 01/01/2025 1:30 PM EDT Clinical Support [facility] DIABETES/NUTRITION [address] [place] [address] [place] [address] documented as of this encounter Visit Diagnoses Not on filedocumented in this encounter Additional Health Concerns Assessment Noted Time PHQ-9 Depression Total Score: 0 01/10/20 24 3:12 PM EDT documented as of this encounter Care Teams Veneer Cutter Relationship Specialty Start Date End Date Name, MD Baltazar [address] [place] [address] PCP - General Family Medicine 10/03/18 documented as of this encounter
--- OUTSIDE RECORDS SUMMARY | 2024-12-08 12:50 | XMS_ITS | Encounter Summary ---
Author Organization [employer] Address [address] [place] [address] Care Team Providers Care Elevator Attendant Name Role Phone Name, Baltazar CARO Primary Care Provider [phone] Reason for Visit * Reason Onset Date Comments chartprep 11/30/2024 Encounter Details Date Type Department Care Team ([facility] st Contact Info) Description 11/30/[address] [facility] MEDICINE [address] [place] [address] Abraham Celeste NE chartprep Social History Tobacco Use Types Packs/Day Years [...] encounter Miscellaneous Notes * Telephone Encounter - Abraham Celeste MA - 11/30/2024 1:51 PM EST Chart Prep Labs: done Images: done Vaccines due: Updated Referrals: Nephrology Completed 12/11/24 @9:30am Screenings: Eye Exam and Foot Exam due on 01/09/25 Overdue care gaps: Sbirt and Oral Health,ROS-7 documented in this encounter Plan of Treatment Upcoming Encounters Date Type Department Care Team (Late st Contact Info) Description 01/01/2025 1:30 PM EDT Clinical Support [facility] DIABETES/NUTRITION [address] [place] [address] Donna Whitman, STEPHANIE [address] [place] [address] documented as of this encounter Visit Diagnoses Not on filedocumented in this encounter Additional Health Concerns Assessment Noted Time PHQ-9 Depression Total Score: 0 01/10/20 24 3:12 PM EDT documented as of this encounter Care Teams Elevator Attendant Relationship Specialty Start Date End Date Name, MD Baltazar [address] [place], [place] [phone] PCP - General Family Medicine 10/03/18 documented as of this encounter
--- OUTSIDE RECORDS SUMMARY | 2024-12-08 12:50 | XMS_ITS | Encounter Summary ---
Author Organization [employer] [facility] Address [address] [place] [address] Care Team Providers Care Escrow Officer Name Role Phone Name, Baltazar CARO Primary Care Provider [phone] Reason for Visit * Consultation (Routine) - Authorized Specialty Diagnoses / Procedures Referred By Yohan ocampo Referred To Contact Nutrition Diagnoses Type 2 diabetes mellitus with other specified complication, without long-term current use of insulin (CMS/HCC) Lona Dsouza FNP [address] [place] [address] Phone: tel: fax: Referral ID Status Reason Start Date Expiration Date Visits Requested Visits Authorized [id number] Authorized Specialty Services Required 09/25/2024 09/25/2025 1 1 Encounter Details Date Type Department Care Team ([facility] st Contact Info) Description 11/10/2024 9:00 AM EST Nutrition [facility] DIABETES/NUTRITION [address] [place], [place] [phone] Donna Whitman RD [address] [place], [place] [phone] Type 2 diabetes mellitus with other specified [...] mix it and take it. Go to [employer] for all sweets that Pt desires. Food [...] Description 01/01/2025 1:30 PM EDT Clinical Support [facility] DIABETES/NUTRITION [address] [place] [address] [place] [address] documented as of this encounter Visit Diagnoses Diagnosis Type 2 diabetes mellitus with other specified complication, without long-term current use of insulin ([facility]) documented in this encounter Additional Health Concerns Assessment Noted Time PHQ-9 Depression Total Score: 0 01/10/20 24 3:12 PM EDT documented as of this encounter Care Teams Escrow Officer Relationship Specialty Start Date End Date Name, MD Baltazar [address] [place] [address] PCP - General Family Medicine 10/03/18 documented as of this encounter
--- OUTSIDE RECORDS SUMMARY | 2024-12-08 12:50 | XMS_ITS | Encounter Summary ---
Author Organization [employer] Address [address] [place] [address] Care Team Providers Care Slitter And Rewinder Machine Operator Name Role Phone Name, Baltazar CARO Primary Care Provider [phone] Reason for Visit * Reason Onset Date Comments Med Refill 03/04/2024 Encounter Details Date Type Department Care Team (Late st Contact Info) Description 03/04/2024 Refill [facility] MEDICINE [address] [place], [place] [phone] Name, MD Baltazar [address] [place] [address] Social History Tobacco Use Types Packs/Day Years [...] Description 01/01/2025 1:30 PM EDT Clinical Support [facility] DIABETES/NUTRITION [address] [place] [address] [place] [address] documented as of this encounter Visit Diagnoses Not on filedocumented in this encounter Additional Health Concerns Assessment Noted Time PHQ-9 Depression Total Score: 0 01/10/20 24 3:12 PM EDT documented as of this encounter Care Teams Slitter And Rewinder Machine Operator Relationship Specialty Start Date End Date Name, MD Baltazar [address] [place] [address] PCP - General Family Medicine 10/03/18 documented as of this encounter
--- OUTSIDE RECORDS SUMMARY | 2024-12-08 12:50 | XMS_ITS | Encounter Summary ---
Author Organization [employer] Address [address] [place] [address] Care Team Providers Care Structural Mill Supervisor Name Role Phone Name, Baltazar CARO Primary Care Provider [phone] Reason for Visit * Reason Onset Date Comments Created In Error 07/17/2024 Encounter Details Date Type Department Care Team ([facility] st Contact Info) Description 07/17/2024 Telephone [facility] MEDICINE [address] [place], [place] [phone] Name, MD Baltazar [address] [place] [address] Created In Error Social History Tobacco Use [...] Description 01/01/2025 1:30 PM EDT Clinical Support [facility] DIABETES/NUTRITION [address] [place] [address] [place] [address] documented as of this encounter Visit Diagnoses Not on filedocumented in this encounter Additional Health Concerns Assessment Noted Time PHQ-9 Depression Total Score: 0 01/10/20 24 3:12 PM EDT documented as of this encounter Care Teams Structural Mill Supervisor Relationship Specialty Start Date End Date Name, MD Baltazar [address] [place] [address] PCP - General Family Medicine 10/03/18 documented as of this encounter
--- OUTSIDE RECORDS SUMMARY | 2024-12-08 12:50 | XMS_ITS | Encounter Summary ---
Author Organization [employer] Address [address] [place] [address] Care Team Providers Care Stamp Clerk Name Role Phone Name, Baltazar CARO Primary Care Provider [phone] Reason for Visit * Reason Onset Date Comments Med Refill 07/30/2023 Encounter Details Date Type Department Care Team ([facility] st Contact Info) Description 07/30/2023 Telephone [facility] MEDICINE [address] [place], [place] [phone] Name, MD Baltazar [address] [place] [address] Med Refill Social History Tobacco Use Types [...] - 08/02/2023 10:48 AM EDT Tc from [facility] states metFORMIN (Glucophage) 500 MG tablet was supposed to be sent to [facility]/pharmacy #[id number] - [address] * Telephone Encounter - Abbi Harding LPN - 07/31/2023 12:29 PM EDT Please review request I don't see any documentation that medication was increased. * Telephone Encounter - Elissa Templeton - 07/31/2023 12:16 PM EDT TC from [facility] requesting a med refill on metFORMIN (Glucophage) 500 MG tablet pt is using medication1 tab twice a day. Script said 1 tab a day. Please to change directions. Please to be sent to [facility] Pharmacy. PCP DR. Hines documented in this encounter Plan of Treatment Upcoming Encounters Date Type Department Care Team (Late st Contact Info) Description 01/01/2025 1:30 PM EDT Clinical Support [facility] DIABETES/NUTRITION [address] [place], [place] [phone] Donna Whitman RD 230 [place] [address] documented as of this encounter Visit Diagnoses Not on filedocumented in this encounter Additional Health Concerns Assessment Noted Time PHQ-9 Depression Total Score: 0 10/10/20 22 3:39 PM EST documented as of this encounter Care Teams Stamp Clerk Relationship Specialty Start Date End Date Name, MD Baltazar [address] [place] [address] PCP - General Family Medicine 10/03/18 documented as of this encounter
--- OUTSIDE RECORDS SUMMARY | 2024-12-08 12:50 | XMS_ITS | Encounter Summary ---
Author Organization [employer] Address [address] [facility] 7 [place] [address] Care Team Providers Care Critical Care Physician Name Role Phone Name, Baltazar CARO Primary Care Provider [phone] Encounter Details Date Type Department Care Team [...] 1:30 PM EDT Clinical Support [facility] DIABETES/NUTRITION [address] [place] [address] [place] [address] documented as of this encounter Visit Diagnoses Not on filedocumented in this encounter Additional Health Concerns Assessment Noted Time PHQ-9 Depression Total Score: 0 01/10/20 24 3:12 PM EDT documented as of this encounter Care Teams Critical Care Physician Relationship Specialty Start Date End Date Name, MD Baltazar [address] [place] [address] PCP - General Family Medicine 10/03/18 documented as of this encounter
--- OUTSIDE RECORDS SUMMARY | 2024-12-08 12:50 | XMS_ITS | Encounter Summary ---
Author Organization [employer] Address [address] [facility] [address], [place] [address] Care Team Providers Care Ammunition Assembly Laborer Name Role Phone Name, Baltazar CARO Primary Care Provider [phone] Reason for Visit * Reason Comments Foot Pain Encounter Details Date Type Department Care Team ([facility] st Contact Info) Description 12/08/2024 10:20 AM EST Office Visit [facility] 230 [place] [address] Toe infection (Primary Dx) Social History Tobacco Use Types [...] Sign Reading Time Taken Comments Blood Pressure 133/83 12/08/2024 10:42 AM EST Pulse 97 12/08/2024 10:42 AM EST Temperature 36.7 ??C (98.1 ??F) 12/08/2024 1 0:42 AM EST Respiratory Rate 17 12/08/2024 10:4 2 AM EST Oxygen Saturation 96% 12/08/2024 10: 42 AM EST Inhaled Oxygen Concentration - - Weight 67.5 kg (148 lb 12.8 oz) 025 10:42 AM EST Height - - Body Mass Index 27.22 12/01/2024 3:58 PM EST documented in this encounter Plan of Treatment Upcoming Encounters Date Type Department Care Team (Late st Contact Info) Description 01/01/2025 1:30 PM EDT Clinical Support [facility] DIABETES/NUTRITION [address] [place] [address] [place] [address] Scheduled Orders Name Type Priority Associated Diagnoses Orde r Schedule XR toe fifth LT min 2V Imaging Routine Toe infection Expected: 12/08/2024, Expires: 12/08/2025 documented as of this encounter Visit Diagnoses Diagnosis Toe infection- Primary documented in this encounter Additional Health Concerns Assessment Noted Time PHQ-9 Depression Total Score: 0 01/10/20 24 3:12 PM EDT documented as of this encounter Care Teams Ammunition Assembly Laborer Relationship Specialty Start Date End Date Name, MD Baltazar [address] [place] [address] PCP - General Family Medicine 10/03/18 documented as of this encounter
--- OUTSIDE RECORDS SUMMARY | 2024-12-08 12:50 | XMS_ITS | Encounter Summary ---
Author Organization [employer] Address [address] [place] [address] Care Team Providers Care Dolphin Researcher Name Role Phone Name, Baltazar CARO Primary Care Provider [phone] Reason for Visit * Reason Comments Med Refill Encounter Details Date Type Department Care Team ([facility] st Contact Info) Description 11/09/2024 Refill [facility] MEDICINE [address] [place], [place] [phone] Name, MD Baltazar [address] [place] [address] Social History Tobacco Use Types Packs/Day Years [...] Description 01/01/2025 1:30 PM EDT Clinical Support [facility] DIABETES/NUTRITION [address] [place] [address] [place] [address] documented as of this encounter Visit Diagnoses Not on filedocumented in this encounter Additional Health Concerns Assessment Noted Time PHQ-9 Depression Total Score: 0 01/10/20 24 3:12 PM EDT documented as of this encounter Care Teams Dolphin Researcher Relationship Specialty Start Date End Date Name, MD Baltazar [address] [place] [address] PCP - General Family Medicine 10/03/18 documented as of this encounter
--- OUTSIDE RECORDS SUMMARY | 2024-12-08 12:50 | XMS_ITS | Encounter Summary ---
Author Organization [employer] Address [address] [place] [address] Care Team Providers Care Supervisor Welding Equipment Repairer Name Role Phone Name, Baltazar CARO Primary Care Provider [phone] Reason for Visit * Reason Onset Date Comments Nurse Triage 07/12/2023 Encounter Details Date Type Department Care Team ([facility] st Contact Info) Description 07/12/2023 Telephone [facility] [address] [place], [place] [phone] Name, MD Baltazar [address] [place] [address] Nurse Triage Social History Tobacco Use Types [...] 07/12/2023 10:33 AM EDT Triage call with [employer] Wardrobe Manager [place] [id number] Pt PORTILLO Patton, reports concern for Pt. 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 Pt has [...] pcp only. Pt will be traveling to [place] and returning 08/03/23. No apts available prior [...] caller accepted this outcome Please contact at [phone] or [phone] Uzbek documented in this encounter Plan of Treatment Upcoming Encounters Date Type Department Care Team (Late st Contact Info) Description 01/01/2025 1:30 PM EDT Clinical Support [facility] DI[facility]ET[facility]/NUTRITION [address] [place] [address] [place], [place] [phone] documented as of this encounter Visit Diagnoses Not on filedocumented in this encounter Additional Health Concerns Assessment Noted Time PHQ-9 Depression Total Score: 0 10/10/20 22 3:39 PM EST documented as of this encounter Care Teams Supervisor Welding Equipment Repairer Relationship Specialty Start Date End Date Name, MD Baltazar [address] [place] [address] PCP - General Family Medicine 10/03/18 documented as of this encounter
--- OUTSIDE RECORDS SUMMARY | 2024-12-08 12:50 | XMS_ITS | Encounter Summary ---
Author Organization [employer] Address [address] [facility] 7 [place] [address] Care Team Providers Care Aircraft Engine Mechanic Name Role Phone Name, Baltazar CARO Primary Care Provider [phone] Encounter Details Date Type Department Care Team (Latest Contact Info) Description 12/01/2024 Travel Social History Tobacco Use Types Packs/Day [...] Description 01/01/2025 1:30 PM EDT Clinical Support [facility]/NUTRITION [address] [place] [address] [place] [address] documented as of this encounter Visit Diagnoses Not on filedocumented in this encounter Additional Health Concerns Assessment Noted Time PHQ-9 Depression Total Score: 0 01/10/20 24 3:12 PM EDT documented as of this encounter Care Teams Aircraft Engine Mechanic Relationship Specialty Start Date End Date Name, MD Baltazar [address] [place] [address] PCP - General Family Medicine 10/03/18 documented as of this encounter
--- OUTSIDE RECORDS SUMMARY | 2024-12-08 12:50 | XMS_ITS | Encounter Summary ---
Author Organization [employer] [facility] Address [address] [place] [address] Care Team Providers Care Alum Plant Operator Name Role Phone Name, Baltazar CARO Primary Care Provider [phone] Reason for Visit * Reason Comments Med Refill Encounter Details Date Type Department Care Team (Late st Contact Info) Description 07/14/2023 Refill [facility] MEDICINE [address] [place], [place] [phone] Name, MD Baltazar [address] [place] [address] Social History Tobacco Use Types Packs/Day Years [...] Description 01/01/2025 1:30 PM EDT Clinical Support [facility] DIABETES/NUTRITION [address] [place] [address] [place] [address] documented as of this encounter Visit Diagnoses Not on filedocumented in this encounter Additional Health Concerns Assessment Noted Time PHQ-9 Depression Total Score: 0 10/10/20 22 3:39 PM EST documented as of this encounter Care Teams Alum Plant Operator Relationship Specialty Start Date End Date Name, MD Baltazar [address] [place] [address] PCP - General Family Medicine 10/03/18 documented as of this encounter
--- OUTSIDE RECORDS SUMMARY | 2024-12-08 12:50 | XMS_ITS | Encounter Summary ---
Author Organization [employer] [facility] Address [address] [place] [address] Care Team Providers Care Bioinformatics Research Technician Name Role Phone Baltazar Hines MD Primary Care Provider [phone] Reason for Referral * Consultation (Routine) - Authorized Specialty Diagnoses / Procedures Referred By Contchristina t Referred To Contact Pharmacy Diagnoses Type 2 diabetes mellitus with other specified complication, without long-term current use of insulin (CMS/HCC) Stage 3a chronic kidney disease (CKD) (CMS/HCC) Baltazar Hines MD [address] [place] [address] Phone: tel: fax: Referral ID Status Reason Start Date Expiration Date Visits Requested Visits Authorized [id number] Authorized Consult and Treat 12/01/2024 12/01/2025 6 6 Reason for Visit * Reason Comments Diabetes Encounter Details Date Type Department Care Team (Late st Contact Info) Description 12/01/2024 4:00 PM EST Office Visit [facility] MEDICINE [address] [place], [place] [phone] Baltazar Hines MD [address] [place], [place] [phone] Type 2 diabetes mellitus with other specified complication, without long-term current use of insulin (CMS/HCC) (Primary Dx) Social History Tobacco Use Types [...] Sign Reading Time Taken Comments Blood Pressure 129/77 12/01/2024 4:17 PM EST Pulse 87 12/01/2024 3:58 PM EST Temperature 36.2 ??C (97.1 ??F) 12/01/2024 3:58 PM ES T Respiratory Rate 20 12/01/2024 3:58 PM EST Oxygen Saturation 99% 12/01/2024 3:58 PM EST Inhaled Oxygen Concentration - - Weight 68 kg (150 lb) 12/01/2024 3:58 PM EST Height 157.5 cm (5' 2 ) 12/01/2024 3:58 PM EST Body Mass Index 27.44 12/01/2024 3:58 PM EST documented in this encounter Progress Notes * Baltazar Name, - 12/01/2024 4:00 PM EST Subjective Patient ID: Jamir Izaguirre is a 74 y.o. male who presents for Diabetes. Patient comes for a follow-up visit. He is asymptomatic. Blood sugar is not well-controlled based on his home readings and his hemoglobin A1c which is consistent with his home readings. He has a liberal diet. He is using his Trulicity and metformin as prescribed. He tells me that he has restarted using Jardiance about a week ago and is tolerating the medication well. In the past he felt medication was causing him nausea and lack of appetite but not anymore. Blood sugar has been a little better for the past week. We discussed favorable results of recent BMP. CKD stable and potassium normalizedwith the use of Veltassa. Review of Systems Constitutional: Negative for chills, fatigue and fever. HENT: Negative for sore throat. Respiratory: Negative for cough, chest tightness and shortness of breath. Cardiovascular: Negative for chest pain, palpitations and leg swelling. Gastrointestinal: Negative for abdominal pain and blood in stool. Visit Vitals BP 129/77 Pulse 87 Temp 97.1 ??F (36.2 ??C) (Temporal) Resp 20 Ht 5' 2 (1.575 m) Wt 150 lb (68 kg) SpO2 99% BMI 27.44 kg/m?? Smoking Status Never BSA 1.72 m?? Objective Physical Exam Constitutional: Appearance: Normal appearance. Cardiovascular: Rate and Rhythm: Normal rate and regular rhythm. Heart sounds: No murmur heard. Pulmonary: Effort: Pulmonary effort is normal. No respiratory distress. Breath sounds: No wheezing, rhonchi or rales. Abdominal: Palpations: Abdomen is soft. Tenderness: There is no abdominal tenderness. Musculoskeletal: Right lower leg: No edema. Left lower leg: No edema. Neurological: Mental Status: He is alert. Lab Results Component Value Date GLUCOSE 234 (H) 11/27/2024 NA 140 11/27/2024 K 4.1 11/27/2024 CO2 24 11/27/2024 CL 107 11/27/2024 BUN 27 (H) 11/27/2024 CREATININE 1.46 (H) 11/27/2024 Lab Results Component Value Date HGBA1C 9.5 (A) 12/01/2024 HGBA1C 8.7 (A) 09/25/2024 HGBA1C 8.2 (A) 08/19/2024 HGBA1C 8.5 (A) 01/10/2024 HGBA1C 7.5 (A) 09/09/2023 HGBA1C 8.2 (A) 06/05/2023 HGBA1C 8.2 (A) 01/28/2023 HGBA1C 8.5 (A) 10/10/2022 HGBA1C 8.2 (H) 05/02/2022 HGBA1C 7.8 (H) 01/27/2021 HGBA1C 7.2 (H) 06/16/2020 HGBA1C 7.2 (H) 06/16/2020 Assessment/Plan Diagnoses and all orders for this visit: Type 2 diabetes mellitus with other specified complication, without long-term current use of insulin ([facility]) Comments: Patient is recommended to continue Trulicity and metformin the same. I will restart Jardiance for daily use. We discussed side effects of the medication and he is encouraged to call if he has any urinary symptoms. I reminded the patient to avoid sweets and soda. Continue checking blood sugars at home. Walk daily. Referral to CDTM program. Orders: - POCT Glucose - POCT HGB A1C - Referral to Pharmacy CDTM Other orders - empagliflozin (Jardiance) 10 MG; Take 1 tablet (10 mg) by mouth Once per day. documented in this encounter Plan of Treatment Upcoming Encounters Date Type Department Care Team (Late st Contact Info) Description 01/01/2025 1:30 PM EDT Clinical Support [facility] DIABETES/NUTRITION [address] [place] [address] [place] [address] Scheduled Referrals Name Type Priority Associated Diagnoses Orde r Schedule Referral to Pharmacy CDTM Outpatient Referral Routine Type 2 diabetes mellitus with other specified complication, without long-term current use of insulin ([facility]) Ordered: 12/01/2024 documented as of this encounter Procedures Procedure Name Priority Date/Time Associated Diagnosis Comments POCT GLYCATED HEMOGLOBIN, TOTAL Routine 12/01/2024 4:02 PM EST Type 2 diabetes mellitus with other specified complication, without long-term current use of insulin ([facility]) POCT GLUCOSE Routine 12/01/2024 4:01 PM EST Type 2 diabetes mellitus with other specified complication, without long-term current use of insulin ([facility]) documented in this encounter Results * (ABNORMAL) POCT HGB A1C (12/01/2024 4:02 PM EST) Hemoglobin A1C 9.5(A) 4.0 - 6.0 % QC Media Lot # [id number] Lot# Expiration Date , Blood 12/01/2024 4:02 PM EST us Baltazar Hines MD POINT OF CARE TEST ENTER/EDIT OR DERABLES Final Result * POCT Glucose (12/01/2024 4:01 PM EST) Glucose Blood, POC 183 60 - 200 mg/dL QC Media Lot # [id number] Lot# Expiration Date ,025 Blood Capillary blood specimen / Unknown 12/01/2024 4:01 PM EST us Baltazar Hines MD POINT OF CARE TEST ENTER/EDIT OR DERABLES Final Result documented in this encounter Visit Diagnoses Diagnosis Type 2 diabetes mellitus with other specified complication, without long-term current use of insulin ([facility])- Primary documented in this encounter Additional Health Concerns Assessment Noted Time PHQ-9 Depression Total Score: 0 01/10/20 24 3:12 PM EDT documented as of this encounter Care Teams Bioinformatics Research Technician Relationship Specialty Start Date End Date Name, MD Baltazar [address] [place] [address] PCP - General Family Medicine 10/03/18 documented as of this encounter
--- OUTSIDE RECORDS SUMMARY | 2024-12-08 12:50 | XMS_ITS | Encounter Summary ---
Author Organization [employer] Address [address] [facility] 7 [place] [address] Care Team Providers Care Lcpc Name Role Phone Name, Baltazar CARO Primary Care Provider [phone] Encounter Details Date Type Department Care Team (Latest Contact Info) Description 11/27/2024 Travel Social History Tobacco Use Types Packs/Day [...] 1:30 PM EDT Clinical Support [facility] DIABETES/NUTRITION [address] [place] [address] [place] [address] documented as of this encounter Visit Diagnoses Not on filedocumented in this encounter Additional Health Concerns Assessment Noted Time PHQ-9 Depression Total Score: 0 01/10/20 24 3:12 PM EDT documented as of this encounter Care Teams Lcpc Relationship Specialty Start Date End Date Name, MD Baltazar [address] [place] [address] PCP - General Family Medicine 10/03/18 documented as of this encounter
--- OUTSIDE RECORDS SUMMARY | 2024-12-08 12:50 | XMS_ITS | Clinical Summary ---
Author Organization [employer] Address [address] [place] [address], [place] [address] Care Team Providers Care Furniture Manager Name Role Phone Name, Baltazar CARO Primary Care Provider [phone] Allergies No known active allergies Medications leuprolide, [...] complication, without long-term current use of insulin ([facility]) Inject 4.5 mg under the skin 1 (one) time per week. 2 mL 3 08/19/20 24 025 Active glucose blood (OneTouch Verio) test stripIndicati ons:Type 2 diabetes mellitus with other specified complication, without long-term current use of insulin ([facility]) Use one test strip to check blood sugar by subcutaneous route once per day. DiagnosisType 2 diabetes mellitus with other complication without use of insuliln ([facility]) Code: E11.69 100 strip 3 08/21/20 24 Active Veltassa 8.4 g pack DISSOLVE 1 PACKET AND TAKE BY MOUTH ONCE DAILY 30 each 11/10/19 25 Active empagliflozin (Jardiance) 10 MG Take 1 tablet (10 mg) by mouth Once per day. 30 tablet 2 12/01/19 25 025 Active doxycycline (Vibramycin) 100 MG capsule Take 1 capsule (100 mg) by mouth 2 times daily for 7 days. Take with at least 8 ounces (large glass) of water, do not lie down for 30 minutes after 14 capsule 12/08/19 25 025 Active cefadroxil (Duricef) 500 MG capsule Take 1 capsule (500 mg) by mouth 2 times daily for 7 days. 14 capsule 12/08/19 25 Active Patiromer Sorbitex Calcium 8.4 g [...] & metformin 500 mg bid Referral to merchandise team manager Obstructive sleep apnea syndrome 10/03/2018 Malignant tumor of prostate 10/03/2018 Encounters Date Type Department Care Team Description 12/08/2024 10:20 AM EST Office Visit [facility] [address] [place] [phone] Toe infection (Primary Dx) 12/06/[address] [facility] [address] [place] [address] Baltazar Hines MD 12/04/2024 9:00 AM EST Clinical Support [facility] DIABETES/NUTRITION [address] [place] [address] Type 2 diabetes mellitus with other specified complication, without long-term current use of insulin (CMS/HCC) (Primary Dx) 12/04/2024 Travel 12/01/2024 4:00 PM EST Office Visit [facility] [address] [place] [phone] Baltazar Hines MD Type 2 diabetes mellitus with other specified complication, without long-term current use of insulin (CMS/HCC) (Primary Dx) 12/01/2024 Travel 11/30/[address] [facility] [address] [place] [address] Abraham Celeste MA chartprep 11/27/2024 Travel 11/10/2024 9:[address] [facility]NUTRITION [address] [place] [address] Type 2 diabetes mellitus with other specified complication, without long-term current use of insulin (CMS/HCC) 11/10/2024 Travel 11/09/[address] [facility] [address] [place] [address] Baltazar Hines MD 11/04/2024 Travel 10/08/2024 Telephone [facility] [address] [place] [address] Baltazar Hines MD Med Refill 09/25/2024 3:30 PM EST Office Visit [facility] [address] [place] [address] Lona Dsouza, CUSTOMER ACCOUNT ADMINISTRATOR Type 2 diabetes mellitus with other specified complication, without long-term current use of insulin ([facility]) (Primary Dx) 09/24/[address] [address] Lani Mayo MA Chart Prep 09/22/[address] [address] Sallie Lacy NP 09/22/2024 Orders Only GENERIC EXTERNAL DATA DEPARTMENT Provider, Generic External Data 09/18/2024 Travel 09/15/2024 Telephone [facility] [address] [place] [address] Candy Willard, GREYSON from Last 3 Months Immunizations Name Administration [...] 12.8 oz) 025 10:42 AM EST Height 157.5 cm (5' 2 ) 12/01/2024 3:58 PM EST Body Mass Index 27.22 12/01/2024 3:58 PM EST Plan of Treatment Upcoming Encounters Date Type Department Care Team (Late st Contact Info) Description 01/01/2025 1:30 PM EDT Clinical Support [facility] DI[facility]ET[facility]/NUTRITION [address] [place], [place] [phone] Donna Whitman, STEPHANIE [address] [place], [place] [phone] Health Maintenance Due Date Last Done Comments CT Colonography 1951 FIT DNA/Cologuard 1950 FIT 1951 FOBT 1950 Sigmoidoscopy 1950 Eye Exam 1961 Hepatitis C Screening 1969 Depression Screening 01/09/2025 01/10/2024, 01/10/20 Diabetes: Foot Exam 01/09/2025 01/10/2024, 01/10/2024, 01/10/2024, Additional history exists SDOH Screening 01/09/2025 01/10/2024 Diabetes: Hemoglobin A1C 02/28/2025 025, 09/25/2024, 08/19/2024, Additional history exists Colonoscopy 04/19/2025 04/19/2015 Colorectal Cancer Screening 04/19/2025 Diabetes: Urine Protein Screening 08/13/2025 08/13/2024, 04/18/2023, 02/01/2023, Additional history exists Lipid Panel 08/13/2025 08/13/2024, 03/22, 02/01/2023, Additional history exists Alcohol/Substance Use Screening 12/01/2025 12/01/2024 Tobacco Screening 12/08/2025 12/08/2024 RSV Patients and Patients Aged 60 years [...] complication, without long-term current use of insulin ([facility]) POCT GLUCOSE Routine 12/01/2024 4:01 PM EST Type 2 diabetes mellitus with other specified complication, without long-term current use of insulin (CMS/[facility]) BASIC METABOLIC PANEL Routine 11/27/2024 10:18 AM EST Hyperkalemia POCT GLUCOSE Routine 09/25/2024 3:57 PM EST Type 2 diabetes mellitus with other specified complication, without long-term current use of insulin ([facility]) POCT GLYCATED HEMOGLOBIN, TOTAL Routine 09/25/2024 3:56 [...] Recently Relevant to Health Maintenance Results * (ABNORMAL) POCT HGB A1C (12/01/2024 4:02 PM EST) Only the most recent of2 resultswithin the time period is included. Pathologist [facility] Hemoglobin A1C 9.5(A) 4.0 - 6.0 % QC Media Lot # [id number] Lot# Expiration Date [id number] Blood 12/01/2024 4:02 PM EST us Baltazar Hines MD POINT OF CARE TEST ENTER/EDIT OR DERABLES Final Result * POCT Glucose (12/01/2024 4:01 PM EST) Only the most recent of2 resultswithin the time period is included. Pathologist [facility] Glucose Blood, POC 183 60 - 200 mg/dL QC Media Lot # [id number] Lot# Expiration Date 870 Blood Capillary blood specimen / Unknown 12/01/2024 4:01 PM EST us Baltazar Hines MD POINT OF CARE TEST ENTER/EDIT OR DERABLES Final Result * (ABNORMAL) Basic Metabolic Panel (11/27/2024 10:18 AM EST) Only the most recent of2 resultswithin the time period is included. [facility] Sodium 140 135 - 145 mmol/L [facility] Potassium 4.1 3.3 - 5.1 mmol/L [facility] Chloride 107 96 - 108 mmol/L [facility] Carbon Dioxide 24 22 - 29 mmol/L [facility] Anion Gap 13 12 - 20 [facility] Urea Nitrogen (BUN) 27(H) 9 - 16 mg/dL [facility] Creatinine, Serum 1.46(H) 0.5 - 1.4 mg/dL [facility] Estimated Glomerular Filt Rate 47 [facility] Comment:Chronic Kidney Disea se: Estimated GFR < 60 mL/min/1.78x3Kxcbxt Kidney Disease: Estimated GFR < 15 mL/min/1.73m2 Glucose 234(H) 60 - 115 mg/dL [facility] Calcium 9.4 8.4 - 10.2 mg/dL [facility] Blood Venous blood specimen / Unknown 11/27/2024 10:18 AM EST 11/27/2024 11:33 AM EST us Baltazar Hines MD LAB BLOOD ORDERABLES Final Resul t [facility] [address] [place] [phone] * Testosterone, Total, males (Adult), [place] (09/22/2024 4:31 PM EST) Pathologist [facility] Testosterone, Total 275 250 - 1100 ng/dL [facility] Comment:Men with clinically significant hypogonadalsymptoms and testosterone values repeatedly inthe range of the 200-300 ng/dL or less, maybenefit from testosterone treatment afteradequate risk and benefits counseling.For additional information, please refer [email or web address]/faq/[email or web address](This link is being provided for informational/educational purposes only.)This test was developed and its analytical performancecharacteristics have been determined by [employer] [place], [place]. It hasnot been cleared or approved by the U.S. Food and DrugAdministration. This assay has been validated pursuantto the CLIA regulations and is used for clinicalpurposes.THIS TEST WAS PERFORMED AT:[employer] [id number] [place] [id number] DEUTSCH MD,PHD 09/22/2024 4:31 PM EST 09/22/2024 4:31 PM EST us Generic External Data Provider LAB BLOOD ORDERAB LES Final Result [facility] [address] [place] [phone] * PSA,Total (09/22/2024 4:31 PM EST) Prostate Specific Antigen 1.09 <0.05 - 4.0 ng/mL [facility] Comment:PSA methodology: Abb brock Garcia i ChemiluminescentMicroparticle Immunoassay (CMIA) 09/22/2024 4:31 PM EST 09/22/2024 4:31 PM EST us Generic External Data Provider LAB BLOOD ORDERAB LES Final Result Performing Organization Address City/[facility]/ZIP Co de Phone Number [facility] [address] [place] [phone] * Albumin, Random Urine W/Creatinine (08/13/2024 9:20 AM EDT) Creatinine, Urine 137.88 mg/dL [facility] Microalbumin Urine 14.0 mg/L [facility] Microalbum Creatinine Ratio Ur 10.1 <30 ug/mg cr [facility] Comment:Albumin/Creatinine R at Reference Ranges: Normal: < 30 ug/mg creatinine Microalbuminuria: 30 - 300 ug/mg creatinineClinical Albuminuria: > 300 ug/mg creatinine Urine (Urine, Random) 08/13/2024 9:20 AM EDT 08/13/2024 10:55 AM EDT us Baltazar Name MD LAB URINE ORDERABLES Final Resul t [facility] [address] [place] [phone] * (ABNORMAL) Lipid Panel, Standard (08/13/2024 9:20 AM EDT) Triglycerides 232(H) <150 mg/dL [facility] Comment:Desirable Triglyceri de: less than 150 mg/dLBorderline High Triglyceride 150-199 mg/dLHigh Triglyceride: 200-499 mg/dLVery High Triglyceride: greater than or equal to 5OO mg/dL Cholesterol 130 <200 mg/dL [facility] Comment:Desirable Cholestero l: less than 200 mg/dLBorderline High Cholesterol: 200-239 mg/dLHigh Cholesterol: greater than 239 mg/dL LDL Cholesterol Calculated 54 <100 mg/dL [facility] Comment:Desirable LDL: less than 100 mg/dLNear Optimal/Above Optimal LDL: 110- 129 mg/dLBorderline High LDL: 130-159 mg/dLHigh LDL: 160-189 mg/dLVery High LDL: greater than or equal to 190 mg/dL HDL Cholesterol 30(L) >40 mg/dL [facility] Comment:Desirable HDL: great er than 40 mg/dL Note: This HDL assay may give artificially low results in patients with liver disease. Blood Venous blood specimen / Unknown 08/13/2024 9:20 AM EDT 08/13/2024 10:59 AM EDT Baltazar Hines MD LAB BLOOD ORDERABLES Final Resul t [facility] [address] [place] [address] [phone] * Hm Colonoscopy (04/19/2015) Colonoscopy Normal Normal Baltazar Hines MD HEALTH MAINTENANCE Final Result from Last 3 Months or Most Recently Relevant to Health Maintenance Insurance MEDICARE Care Teams Furniture Manager Relationship Specialty Start Date End Date Name, MD Baltazar [address] [place] [phone] PCP - General Family Medicine 10/03/18
--- OUTSIDE RECORDS SUMMARY | 2024-12-08 12:50 | XMS_ITS | Encounter Summary ---
Author Organization [employer] Address [address] [place] [address] Care Team Providers Care Racecourse Barrier Attendant Name Role Phone Name, Baltazar CARO Primary Care Provider [phone] Reason for Visit * Reason Onset Date Comments Med Refill 12/06/2024 Encounter Details Date Type Department Care Team (Late st Contact Info) Description 12/06/2024 Refill [facility] MEDICINE [address] [place], [place] [phone] Name, MD Baltazar [address] [place] [address] Social History Tobacco Use Types Packs/Day Years [...] Description 01/01/2025 1:30 PM EDT Clinical Support [facility] DIABETES/NUTRITION [address] [place] [address] [place] [address] documented as of this encounter Visit Diagnoses Not on filedocumented in this encounter Additional Health Concerns Assessment Noted Time PHQ-9 Depression Total Score: 0 01/10/20 24 3:12 PM EDT documented as of this encounter Care Teams Racecourse Barrier Attendant Relationship Specialty Start Date End Date Name, MD Baltazar [address] [place] [address] PCP - General Family Medicine 10/03/18 documented as of this encounter
== END 2024-12-08 11:38 | disposition home or self-care (01) ==
LOC: HO.HHCX 11:37
PROVIDERS: Visit Provider Emergency Medicine
DX: L08.9 Local infection of the skin and subcutaneous tissue, unspecified (principal)
CPT/HCPCS: 73660

== ENCOUNTER → 2024-12-08 11:40 | Outpatient (BNV) | payer MEDICARE, SELFPAY | PROVIDERS: Visit Provider Radiology Diagnostic Radiology | DX: L03.032 Cellulitis of left toe (principal) | CPT/HCPCS: 73660 ==

== ENCOUNTER 2024-12-09 12:25 | Outpatient (AMB) | payer MEDICARE, SELFPAY ==
--- OUTSIDE RECORDS SUMMARY | 2024-12-09 12:46 | XMS_ITS | Encounter Summary ---
Author Organization [employer] Address [address] [facility] 7 [place] [address] Care Team Providers Care Dowel Pin Worker Name Role Phone Name, Baltazar CARO Primary Care Provider [phone] Encounter Details Date Type Department Care Team [...] 01/01/2025 1:30 PM EDT Clinical Support [facility] DIABETES/NUTRITION [address] [place] [address] [place] [address] documented as of this encounter Visit Diagnoses Not on filedocumented in this encounter Additional Health Concerns Assessment Noted Time PHQ-9 Depression Total Score: 0 01/10/20 24 3:12 PM EDT documented as of this encounter Care Teams Dowel Pin Worker Relationship Specialty Start Date End Date Name, MD Baltazar [address] [place] [address] PCP - General Family Medicine 10/03/18 documented as of this encounter
--- OUTSIDE RECORDS SUMMARY | 2024-12-09 12:46 | XMS_ITS | Encounter Summary ---
Author Organization [employer] Address [address] [place] [address] Care Team Providers Care Photography Spotter Name Role Phone Name, Baltazar CARO Primary Care Provider [phone] Reason for Visit * Reason Onset Date Comments Nurse Triage 07/12/2023 Encounter Details Date Type Department Care Team ([facility] st Contact Info) Description 07/12/2023 Telephone [facility] MEDICINE [address] [place], [place] [phone] Name, MD Baltazar [address] [place] [address] Nurse Triage Social History Tobacco Use Types [...] 07/12/2023 10:33 AM EDT Triage call with [employer] Developer [place] [id number] Pt PORTILLO Patton, reports concern for Pt. 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 Pt has [...] only. Pt will be traveling to [place] and returning 08/03/23. No apts available prior [...] caller accepted this outcome Please contact at [phone] or [phone] Turkish documented in this encounter Plan of Treatment Upcoming Encounters Date Type Department Care Team (Late st Contact Info) Description 01/01/2025 1:30 PM EDT Clinical Support [facility] DIABETES/NUTRITION [address] [place] [address] [place], [place] [phone] documented as of this encounter Visit Diagnoses Not on filedocumented in this encounter Additional Health Concerns Assessment Noted Time PHQ-9 Depression Total Score: 0 10/10/20 22 3:39 PM EST documented as of this encounter Care Teams Photography Spotter Relationship Specialty Start Date End Date Name, MD Baltazar [address] [place] [address] PCP - General Family Medicine 10/03/18 documented as of this encounter
--- OUTSIDE RECORDS SUMMARY | 2024-12-09 12:46 | XMS_ITS | Encounter Summary ---
Author Organization [employer] Address [address] [facility] [address] [address] Care Team Providers Care Development Planner Name Role Phone Name, Baltazar CARO Primary Care Provider [phone] Encounter Details Date Type Department Care Team (Latest Contact Info) Description 12/04/2024 9:00 AM EST Clinical Support [facility] DIABETES/NUTRITION 230 [place], [place] [phone] Donna Whitman [address] 230 [place], [place] [phone] Type 2 diabetes mellitus with other specified complication, without long-term current use of insulin ([facility]) (Primary Dx) Social History Tobacco Use Types [...] 01/01/2025 1:30 PM EDT Clinical Support [facility] DIABETES/NUTRITION [address] [place] [address] [place] [address] documented as of this encounter Visit Diagnoses Diagnosis Type 2 diabetes mellitus with other specified complication, without long-term current use of insulin ([facility])- Primary documented in this encounter Additional Health Concerns Assessment Noted Time PHQ-9 Depression Total Score: 0 01/10/20 24 3:12 PM EDT documented as of this encounter Care Teams Development Planner Relationship Specialty Start Date End Date Name, MD Baltazar [address] [place] [address] PCP - General Family Medicine 10/03/18 documented as of this encounter
--- OUTSIDE RECORDS SUMMARY | 2024-12-09 12:46 | XMS_ITS | Encounter Summary ---
Author Organization [employer] Address [address] [place] [address] Care Team Providers Care Comedian Name Role Phone Name, Baltazar CARO Primary Care Provider [phone] Reason for Visit * Reason Onset Date Comments Created In Error 07/17/2024 Encounter Details Date Type Department Care Team ([facility] st Contact Info) Description 07/17/2024 Telephone [facility] MEDICINE [address] [place], [place] [phone] Name, MD Baltazar 230 [place] [address] Created In Error Social History Tobacco Use [...] 1:30 PM EDT Clinical Support [facility] DIABETES/NUTRITION [address] [place] [address] [place] [address] documented as of this encounter Visit Diagnoses Not on filedocumented in this encounter Additional Health Concerns Assessment Noted Time PHQ-9 Depression Total Score: 0 01/10/20 24 3:12 PM EDT documented as of this encounter Care Teams Comedian Relationship Specialty Start Date End Date Name, MD Baltazar [address] [place] [address] PCP - General Family Medicine 10/03/18 documented as of this encounter
--- OUTSIDE RECORDS SUMMARY | 2024-12-09 12:46 | XMS_ITS | Encounter Summary ---
Author Organization [facility] Address [address] [place] [address] Care Team Providers Care Banquet Pilot Name Role Phone Baltazar Hines MD Primary Care Provider [phone] Reason for Referral * Consultation (Routine) - Authorized Specialty Diagnoses / Procedures Referred By Contchristina t Referred To Contact Pharmacy Diagnoses Type 2 diabetes mellitus with other specified complication, without long-term current use of insulin (CMS/HCC) Stage 3a chronic kidney disease (CKD) (CMS/HCC) Baltazar Hines MD [address] [place] [address] Phone: tel: fax: Referral ID Status Reason Start Date Expiration Date Visits Requested Visits Authorized [id number] Authorized Consult and Treat 12/01/2024 12/01/2025 6 6 Reason for Visit * Reason Comments Diabetes Encounter Details Date Type Department Care Team (Late st Contact Info) Description 12/01/2024 4:00 PM EST Office Visit [facility] MEDICINE [address] [place], [place] [phone] Baltazar Hines MD [address] [place], [place] [phone] Type 2 diabetes mellitus with other specified [...] complication, without long-term current use of insulin ([facility]) Comments: Patient is recommended to [...] 1:30 PM EDT Clinical Support [facility] DIABETES/NUTRITION [address] [place] [address] [place] [address] Scheduled Referrals Name Type Priority Associated Diagnoses Orde r Schedule Referral to Pharmacy CDTM Outpatient Referral Routine Type 2 diabetes mellitus with other specified complication, without long-term current use of insulin ([facility]) Ordered: 12/01/2024 documented as of this encounter Procedures Procedure Name Priority Date/Time Associated Diagnosis Comments POCT GLYCATED HEMOGLOBIN, TOTAL Routine 12/01/2024 4:02 PM EST Type 2 diabetes mellitus with other specified complication, without long-term current use of insulin ([facility]) POCT GLUCOSE Routine 12/01/2024 4:01 PM EST Type 2 diabetes mellitus with other specified complication, without long-term current use of insulin ([facility]) documented in this encounter Results [...] complication, without long-term current use of insulin ([facility])- Primary documented in this encounter Additional Health Concerns Assessment Noted Time PHQ-9 Depression Total Score: 0 01/10/20 24 3:12 PM EDT documented as of this encounter Care Teams Banquet Pilot Relationship Specialty Start Date End Date Name, MD Baltazar [address] [place] [address] PCP - General Family Medicine 10/03/18 documented as of this encounter
--- OUTSIDE RECORDS SUMMARY | 2024-12-09 12:46 | XMS_ITS | Encounter Summary ---
Author Organization [employer] Address [address] [place] [address] Care Team Providers Care Supervisor Policy Change Clerks Name Role Phone Name, Baltazar CARO Primary Care Provider [phone] Reason for Visit * Reason Onset Date Comments chartprep 11/30/2024 Encounter Details Date Type Department Care Team ([facility] st Contact Info) Description 11/30/2024 Telephone [facility] MEDICINE [address] [place] [address] Abraham Celeste ID chartprep Social History Tobacco Use Types Packs/Day [...] Clinical Support [facility] DIABETES/NUTRITION [address] [place] [address] Donna Whitman, STEPHANIE [address] [place] [address] documented as of this encounter Visit Diagnoses Not on filedocumented in this encounter Additional Health Concerns Assessment Noted Time PHQ-9 Depression Total Score: 0 01/10/20 24 3:12 PM EDT documented as of this encounter Care Teams Supervisor Policy Change Clerks Relationship Specialty Start Date End Date Name, MD Baltazar [address] [place], [place] [phone] PCP - General Family Medicine 10/03/18 documented as of this encounter
--- OUTSIDE RECORDS SUMMARY | 2024-12-09 12:46 | XMS_ITS | Encounter Summary ---
Author Organization [employer] [facility] Address [address] [place] [address] Care Team Providers Care Ticket Scheduler Name Role Phone Name, Baltazar CARO Primary Care Provider [phone] Reason for Visit * Reason Comments Med Refill Encounter Details Date Type Department Care Team (Late st Contact Info) Description 07/14/2023 Refill [facility] MEDICINE [address] [place], [place] [phone] Name, MD Baltazar [address] [place] [address] Social History Tobacco Use Types Packs/Day Years [...] 1:30 PM EDT Clinical Support [facility] DIABETES/NUTRITION [address] [place] [address] [place] [address] documented as of this encounter Visit Diagnoses Not on filedocumented in this encounter Additional Health Concerns Assessment Noted Time PHQ-9 Depression Total Score: 0 10/10/20 22 3:39 PM EST documented as of this encounter Care Teams Ticket Scheduler Relationship Specialty Start Date End Date Name, MD Baltazar [address] [place] [address] PCP - General Family Medicine 10/03/18 documented as of this encounter
--- OUTSIDE RECORDS SUMMARY | 2024-12-09 12:46 | XMS_ITS | Encounter Summary ---
Author Organization [employer] Address [address] [place] [address] Care Team Providers Care Fire Extinguisher Sprinkler Inspector Name Role Phone Name, Baltazar CARO Primary Care Provider [phone] Reason for Visit * Reason Onset Date Comments Med Refill 07/30/2023 Encounter Details Date Type Department Care Team ([facility] st Contact Info) Description 07/30/2023 Telephone [facility] MEDICINE 230 [place], [place] [phone] Name, MD Baltazar [address] [place] [address] Med Refill Social History Tobacco Use Types [...] - 08/02/2023 10:48 AM EDT [facility] metFORMIN (Glucophage) 500 MG tablet was supposed to be sent to [facility]/pharmacy #[id number] - [address] * Telephone Encounter - Abbi Harding LPN - 07/31/2023 12:29 PM EDT Please review request I don't see any documentation that medication was increased. * Telephone Encounter - Elissa Templeton - 07/31/2023 12:16 PM EDT TC from [facility] requesting a med refill on metFORMIN (Glucophage) 500 MG tablet pt is using medication1 tab twice a day. Script said 1 tab a day. Please to change directions. Please to be sent to [facility] Pharmacy. PCP DR. Hines documented in this encounter Plan of Treatment Upcoming Encounters Date Type Department Care Team (Late st Contact Info) Description 01/01/2025 1:30 PM EDT Clinical Support [facility] DIABETES/NUTRITION 230 [place], [place] [phone] Donna Whitman RD [address] [place] [address] documented as of this encounter Visit Diagnoses Not on filedocumented in this encounter Additional Health Concerns Assessment Noted Time PHQ-9 Depression Total Score: 0 10/10/20 22 3:39 PM EST documented as of this encounter Care Teams Fire Extinguisher Sprinkler Inspector Relationship Specialty Start Date End Date Name, MD Baltazar [address] [place] [address] PCP - General Family Medicine 10/03/18 documented as of this encounter
--- OUTSIDE RECORDS SUMMARY | 2024-12-09 12:46 | XMS_ITS | Encounter Summary ---
Author Organization [employer] Address [address] [place] [address] Care Team Providers Care Mortgage Originator Name Role Phone Name, Baltazar CARO Primary Care Provider [phone] Reason for Visit * Reason Onset Date Comments Med Refill 12/06/2024 Encounter Details Date Type Department Care Team (Late st Contact Info) Description 12/06/2024 Refill [facility] MEDICINE [address] [place], [place] [phone] Name, MD Baltazar [address] [place] [address] Social History Tobacco Use Types Packs/Day Years [...] Description 01/01/2025 1:30 PM EDT Clinical Support [facility] DIABETES/NUTRITION [address] [place] [address] [place] [address] documented as of this encounter Visit Diagnoses Not on filedocumented in this encounter Additional Health Concerns Assessment Noted Time PHQ-9 Depression Total Score: 0 01/10/20 24 3:12 PM EDT documented as of this encounter Care Teams Mortgage Originator Relationship Specialty Start Date End Date Name, MD Baltazar [address] [place] [address] PCP - General Family Medicine 10/03/18 documented as of this encounter
--- OUTSIDE RECORDS SUMMARY | 2024-12-09 12:46 | XMS_ITS | Encounter Summary ---
Author Organization [employer] Address [address] [facility] 7 [place] [address] Care Team Providers Care Refrigeration Manager Name Role Phone Name, Baltazar CARO Primary Care Provider [phone] Encounter Details Date Type Department Care Team [...] Description 01/01/2025 1:30 PM EDT Clinical Support [facility] DIABETES/NUTRITION 230 [place] [address] [place] [address] documented as of this encounter Visit Diagnoses Not on filedocumented in this encounter Additional Health Concerns Assessment Noted Time PHQ-9 Depression Total Score: 0 01/10/20 24 3:12 PM EDT documented as of this encounter Care Teams Refrigeration Manager Relationship Specialty Start Date End Date Name, MD Baltazar [address] [place] [address] PCP - General Family Medicine 10/03/18 documented as of this encounter
--- OUTSIDE RECORDS SUMMARY | 2024-12-09 12:46 | XMS_ITS | Encounter Summary ---
Author Organization [employer] Address [address] [facility] [address] [address] Care Team Providers Care Account Resolution Analyst Name Role Phone Name, Baltazar CARO Primary Care Provider [phone] Reason for Visit * Reason Comments Foot Pain Encounter Details Date Type Department Care Team ([facility] st Contact Info) Description 12/08/2024 10:20 AM EST Office Visit [facility] [address] [place] [phone] Antoni Vaughan MD [address] [place] [address] Toe infection (Primary Dx) Social History Tobacco [...] documented in this encounter Progress Notes * Antoni Vaughan MD - 12/08/2024 10:20 AM EST Subjective Patient ID: Jamir Izaguirre is a 74 y.o. male. HPI About 2 months ago Jamir noted that corn on left 5th toe distal medial side became white, more painful. He applied OTC corn softener . He peeled the corn off 2 weeks ago, and the pain has worsenedsince. Liquid that looked like water came out 4 days ago. No fever, chills. Lives with . 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 Never smoked. Patient Active Problem List Diagnosis Type 2 diabetes mellitus with other specified complication (CMS/HCC) Stage 3a chronic kidney disease (CKD) (CMS/HCC) Paralysis of diaphragm Obstructive sleep apnea syndrome Malignant tumor of prostate (CMS/HCC) The following portions of the chart were reviewed this encounter and updated as appropriate: Tobacco Allergies Meds Problems Med Hx Surg Hx Fam Hx Review of Systems Constitutional: Negative for fever. Respiratory: Negative for shortness of breath. Cardiovascular: Negative for chest pain. Gastrointestinal: Negative for abdominal pain. Skin: Negative for rash. Neurological: Negative for headaches. Objective Physical Exam Vitals and nursing note reviewed. Constitutional: Appearance: Normal appearance. HENT: Head: Normocephalic and atraumatic. Nose: Nose normal. Eyes: Conjunctiva/sclera: Conjunctivae normal. Pupils: Pupils are equal, round, and reactive to light. Cardiovascular: Pulses: Dorsalis pedis pulses are 2+ on the left side. Pulmonary: Effort: Pulmonary effort is normal. Skin: General: Skin is warm and dry. Comments: Left small toe: tender, white, oval area over distal medial side with ?liquid under whitearea. Neurological: Mental Status: He is alert. Gait: Gait is intact. Psychiatric: Mood and Affect: Mood and affect normal. Behavior: Behavior normal. Procedures Assessment/Plan Diagnoses and all orders for this visit: Toe infection ?abscess X-rays done in [facility] reviewed by me do not appear to show evidence of osteomyelitis. [facility] radiology report will be done today. Covered area with Bacitracin and Band-Aid. Prescribed doxycycline and Duricef. I called [facility] General Surgeons office, and they kindly scheduled cody't for tomorrow at 1 AM. - XR toe fifth LT min 2V; Future Other orders - doxycycline (Vibramycin) 100 MG capsule; Take 1 capsule (100 mg) by mouth 2 times daily for 7 days. Take with at least 8 ounces (large glass) of water, do not lie down for 30 minutes after - cefadroxil (Duricef) 500 MG capsule; Take 1 capsule (500 mg) by mouth 2 times daily for 7 days. documented in this encounter Plan of Treatment Upcoming Encounters Date Type Department Care Team ([facility] st Contact Info) Description 01/01/2025 1:30 PM EDT Clinical Support [facility] DIABETES/NUTRITION [address] [place] [address] [place] [address] Scheduled Orders Name Type Priority Associated Diagnoses Orde r Schedule XR toe fifth LT min 2V Imaging Routine Toe infection Expected: 12/08/2024, Expires: 12/08/2025 documented as of this encounter Visit Diagnoses Diagnosis Toe infection- Primary documented in this encounter Additional Health Concerns Assessment Noted Time PHQ-9 Depression Total Score: 0 01/10/20 24 3:12 PM EDT documented as of this encounter Care Teams Account Resolution Analyst Relationship Specialty Start Date End Date Name, MD Baltazar [address] [place] [address] PCP - General Family Medicine 10/03/18 documented as of this encounter
--- OUTSIDE RECORDS SUMMARY | 2024-12-09 12:46 | XMS_ITS | Encounter Summary ---
Author Organization [employer] Address [address] [facility] 7 [place] [address] Care Team Providers Care Cigar Head Pegger Name Role Phone Name, Baltazar CARO Primary Care Provider [phone] Encounter Details Date Type Department Care Team [...] Description 01/01/2025 1:30 PM EDT Clinical Support [facility] DIABETES/NUTRITION [address] [place] [address] [place] [address] documented as of this encounter Visit Diagnoses Not on filedocumented in this encounter Additional Health Concerns Assessment Noted Time PHQ-9 Depression Total Score: 0 01/10/20 24 3:12 PM EDT documented as of this encounter Care Teams Cigar Head Pegger Relationship Specialty Start Date End Date Name, MD Baltazar [address] [place] [address] PCP - General Family Medicine 10/03/18 documented as of this encounter
--- OUTSIDE RECORDS SUMMARY | 2024-12-09 12:46 | XMS_ITS | Encounter Summary ---
Author Organization [employer] Address [address] [facility] 7[address] [place] [address] Care Team Providers Care Shell Molding Roller Blast Operator Name Role Phone Name, Baltazar CARO Primary Care Provider [phone] Encounter Details Date Type Department Care Team (Late st Contact Info) Description 12/08/2024 Orders Only [facility] [address] [place], [place] [phone] Antoni Vaughan MD [address] [place] [address] Social History Tobacco Use Types Packs/Day Years [...] Description 01/01/2025 1:30 PM EDT Clinical Support [facility]NU[facility]ITION [address] [place] [address] [place] [address] documented as of this encounter Procedures Procedure Name Priority Date/Time Associated Diagnosis Comments XR TOES 2+ VIEWS LEFT Routine 12/08/2024 1:09 PM EST documented in this encounter Results * XR Toes 2+ Left (12/08/2024 1:09 PM EST) Anatomical Region Laterality Modality Lower Extremities, Toes Left Radiogra [facility] Imaging 12/08/2024 1:09 PM EST Narrative 12/08/2024 1:11 PM EST ?[facility] ?[address]. ?[place] [address] ?XRay Report ? Signed ? Patient: Cormier Izaguirre,Jamir ?MR#: [id number] ?? [id number] ? : 1950 ?Acct:[id number] ? Age/Sex: 74 / M ?ADM Date: 02/18/25 ? Loc: HO.HHCX ? Attending Dr: Antoni Vaughan MD ? Ordering Physician: ANTONI VAUGHAN MD ?? Date of Service: 12/08/24 ?? Procedure(s): XR toe LT min 2V ?? Accession Number(s): [id number] ? cc: ANTONI VAUGHAN MD ? CLINICAL HISTORY: SKIN INFECTION ? Radiographs of the left 5th toe, 3 views, 4 images ? Comparison: None ? Findings: ?? No cortical destruction or periostitis to indicate osteomyelitis. No acute ?? fracture or dislocation. Fixation hardware in the distal fibula and tibia. ?? No degenerative change. Bone mineralization is decreased. Soft tissue ?? swelling. ? Impression: ?? No radiographic evidence of osteomyelitis. Follow up if symptoms persist ?? or worsen. ? This document has been electronically signed by: Marisa Parks MD ?? on 12/08/2024 13:09:30 ? Dictated By: ?Marisa Vivas MD ? Signed By: ?<Electronically signed by Marisa Vivas MD in OV> ? 12/08/24 1310 ? DD/ 1309 ? TD/TT: 12/08/24 1309 ? Discharge Door Operator: ? Procedure Note Yaya, Image - 12/08/[address] [address] XRay Report Signed Patient: Earlene Jimenez#: [id number] : 2Acct:[id number] Age/Sex: 74 / MADM Date: 12/08/24 Loc: HO.HHCX Attending Dr: Antoni Vaughan MD Ordering Physician: ANTONI VAUGHAN MD Date of Service: 12/08/24 Procedure(s): XR toe LT min 2V Accession Number(s): [id number] cc: ANTONI VAUGHAN MD CLINICAL HISTORY: SKIN INFECTION Radiographs of the left 5th toe, 3 views, 4 images Comparison: None Findings: No cortical destruction or periostitis to indicate osteomyelitis. No acute fracture or dislocation. Fixation hardware in the distal fibula and tibia. No degenerative change. Bone mineralization is decreased. Soft tissue swelling. Impression: No radiographic evidence of osteomyelitis. Follow up if symptoms persist or worsen. This document has been electronically signed by: Marisa Parks MD on 12/08/2024 13:09:30 Dictated By: Marisa Vivas MD Signed By: <Electronically signed by Marisa Vivas MD in OV> 12/08/24 1310 DD/ 1309 TD/TT: 12/08/24 1309 Discharge Door Operator: us Antoni Vaughan MD IMG XR PROCEDURES Edited Result - Final documented in this encounter Visit Diagnoses Not on filedocumented in this encounter Additional Health Concerns Assessment Noted Time PHQ-9 Depression Total Score: 0 01/10/20 24 3:12 PM EDT documented as of this encounter Care Teams Shell Molding Roller Blast Operator Relationship Specialty Start Date End Date Name, MD Baltazar [address] [place] [address] PCP - General Family Medicine 10/03/18 documented as of this encounter
--- OUTSIDE RECORDS SUMMARY | 2024-12-09 12:47 | XMS_ITS | Encounter Summary ---
Author Organization [employer] Address [address] [facility] 7 [place] [address] Care Team Providers Care Design Analyst Name Role Phone Name, Baltazar CARO Primary Care Provider [phone] Encounter Details Date Type Department Care Team [...] Description 01/01/2025 1:30 PM EDT Clinical Support [facility] DIABETES/NUTRITION [address] [place] [address] [place] [address] documented as of this encounter Visit Diagnoses Not on filedocumented in this encounter Additional Health Concerns Assessment Noted Time PHQ-9 Depression Total Score: 0 01/10/20 24 3:12 PM EDT documented as of this encounter Care Teams Design Analyst Relationship Specialty Start Date End Date Name, MD Baltazar [address] [place] [address] PCP - General Family Medicine 10/03/18 documented as of this encounter
--- OUTSIDE RECORDS SUMMARY | 2024-12-09 12:47 | XMS_ITS | Encounter Summary ---
Author Organization [employer] Address [address] [place] [address] Care Team Providers Care Information Services Tech Name Role Phone Name, Baltazar CARO Primary Care Provider [phone] Reason for Visit * Reason Onset Date Comments Med Refill 02/10/2024 Encounter Details Date Type Department Care Team (Late st Contact Info) Description 02/10/2024 Refill [facility] [address] [place], [place] [phone] Name, MD Baltazar [address] [place] [address] Social History Tobacco Use Types Packs/Day Years [...] Description 01/01/2025 1:30 PM EDT Clinical Support [facility] DIABETES/NUTRITION [address] [place] [address] [place] [address] documented as of this encounter Visit Diagnoses Not on filedocumented in this encounter Additional Health Concerns Assessment Noted Time PHQ-9 Depression Total Score: 0 01/10/20 24 3:12 PM EDT documented as of this encounter Care Teams Information Services Tech Relationship Specialty Start Date End Date Name, MD Baltazar [address] [place] [address] PCP - General Family Medicine 10/03/18 documented as of this encounter
--- OUTSIDE RECORDS SUMMARY | 2024-12-09 12:47 | XMS_ITS | Clinical Summary ---
Author Organization [employer] Address [address] [place] [address] [address], [place] [address] Care Team Providers Care Land Economist Name Role Phone Name, Baltazar CARO Primary Care Provider [phone] Allergies No known active allergies Medications leuprolide, [...] complication, without long-term current use of insulin ([facility]) Inject 4.5 mg under the skin 1 (one) time per week. 2 mL 3 08/19/20 24 025 Active glucose blood (OneTouch Verio) test stripIndicati ons:Type 2 diabetes mellitus with other specified complication, without long-term current use of insulin ([facility]) Use one test strip to check blood sugar by subcutaneous route once per day. DiagnosisType 2 diabetes mellitus with other complication without use of insuliln ([facility]) Code: E11.69 100 strip 3 08/21/20 [...] daily for 7 days. 14 capsule 12/08/19 Active Patiromer Sorbitex Calcium 8.4 g pack Take 8.4 g by mouth Once per day. 30 each 10/08/20 24 Discontinued Active Problems Problem Noted Date Diagnosed Date Stage 3a chronic kidney disease (CKD) 09/08/2022 Paralysis of diaphragm 09/08/2022 Type 2 diabetes mellitus with other specified co mplication 10/03/2018 Assessment & Plan (09/29/2024 8:10 AM EST): POCT glucose 153 A1C 8.7 Dietary and exercise counseling Patient to continue with prescribed meds-Trulicity to 4.5 weekly & metformin 500 mg bid Referral to ladle puller Obstructive sleep apnea syndrome 10/03/2018 Malignant tumor of prostate 10/03/2018 Encounters Date Type Department Care Team Description 12/08/2024 10:20 AM EST Office Visit [facility] [address] [place] [address] Antoni Vaughan MD Toe infection (Primary Dx) 12/08/2024 Orders Only [facility] [address] [place] [address] Atnoni Vaughan MD 12/06/2024 Refill [facility] [address] [place] [phone] Name, MD Baltazar 12/04/2024 9:00 AM EST Clinical Support [facility] DIABETES/NUTRITION [address] [place] [address] Type 2 diabetes mellitus with other specified complication, without long-term current use of insulin ([facility]/HCC) (Primary Dx) 12/04/2024 Travel 12/01/2024 4:00 PM EST Office Visit [address] [address] Baltazar Hines MD Type 2 diabetes mellitus with other specified complication, without long-term current use of insulin ([facility]) (Primary Dx) 12/01/2024 Travel 11/30/[address] [address] Abraham Celeste [place] chartprep 11/27/2024 Travel 11/10/2024 9:00 AM EST Nutrition [facility] [address] [place] [address] Type 2 diabetes mellitus with other specified complication, without long-term current use of insulin (CMS/HCC) 11/10/2024 Travel 11/09/2024 Refill [facility] [address] [place] [address] Baltazar Hines MD 11/04/2024 Travel 10/08/2024 Telephone [facility] [address] [place] [address] Baltazar Hines MD Med Refill 09/25/2024 3:30 PM EST Office Visit [address] [address] Lona Dsouza FNP Type 2 diabetes mellitus with other specified complication, without long-term current use of insulin ([facility]) (Primary Dx) 09/24/[address] [address] Lani Mayo [place] Chart Prep 09/22/[address] [address] Sallie Lacy NP 09/22/2024 Orders Only GENERIC EXTERNAL DATA DEPARTMENT Provider, Generic External Data 09/18/2024 Travel 09/15/[address] [address] Candy Willard, [place] from Last 3 Months [...] Description 01/01/2025 1:30 PM EDT Clinical Support [facility]ET[facility]NUTRITION [address] [place] [address] [place] [address] Health Maintenance Due Date Last Done Comments [...] VIEWS LEFT Routine 12/08/2024 1:09 PM EST POCT GLYCATED HEMOGLOBIN, TOTAL Routine 12/01/2024 4:02 PM EST Type 2 diabetes mellitus with other specified complication, without long-term current use of insulin ([facility]) POCT GLUCOSE Routine 12/01/2024 4:01 PM EST Type 2 diabetes mellitus with other specified complication, without long-term current use of insulin ([facility]) BASIC METABOLIC PANEL Routine 11/27/2024 10:18 AM EST Hyperkalemia POCT GLUCOSE Routine 09/25/2024 3:57 PM EST Type 2 diabetes mellitus with other specified complication, without long-term current use of insulin (CMS/HCC) POCT GLYCATED HEMOGLOBIN, TOTAL Routine 09/25/2024 3:56 [...] Recently Relevant to Health Maintenance Results * XR Toes 2+ Left (12/08/2024 1:09 PM EST) Anatomical Region Laterality Modality Lower Extremities, Toes Left [facility] 12/08/2024 1:09 PM EST Narrative 12/08/2024 1:11 PM EST ?[facility] ?[address] ?[place] [address] ?XRay Report ? Signed ? Patient: Cormier Izaguirre,Jamir ?MR#: [id number] ?? [id number] ? : 1950 ?Acct:[id number] ? Age/Sex: 74 / M ?ADM Date: 12/08/24 ? Loc: HO.HHCX ? Attending Dr: Antoni Vaughan MD ? Ordering Physician: ANTONI VAUGHAN MD ?? Date of Service: 12/08/24 ?? Procedure(s): XR toe LT min 2V ?? Accession Number(s): [id number] ? cc: ANTONI VAUGHAN MD ? CLINICAL [...] DD/ 1309 ? TD/TT: 12/08/24 1309 ? Graphic Art Designer: ? Procedure Note Abhilash Javier - 12/08/2024 [place] [address] XRay Report Signed Patient: Earlene Jimenez#: [id number] : 2Acct:[id number] Age/Sex: 74 / MADM Date: 12/08/24 Loc: HO.HHCX Attending Dr: Antoni Vaughan MD Ordering Physician: ANTONI VAUGHAN MD Date of Service: 12/08/24 Procedure(s): XR toe LT min 2V Accession Number(s): [id number] cc: ANTONI VAUGHAN MD CLINICAL HISTORY: SKIN [...] 12/08/24 1310 DD/ 1309 TD/TT: 12/08/24 1309 Graphic Art Designer: Antoni Vaughan MD IMG XR PROCEDURES Edited Result - Final * (ABNORMAL) POCT HGB A1C (12/01/2024 4:02 PM EST) Only the most recent of2 resultswithin the time period is included. [facility] Hemoglobin A1C 9.5(A) 4.0 - 6.0 % QC Media Lot # [id number] Lot# Expiration Date 7, Blood 12/01/2024 4:02 PM EST Baltazar Hines MD POINT OF CARE TEST ENTER/EDIT OR DERABLES Final Result * POCT Glucose (12/01/2024 4:01 PM EST) Only the most recent of2 resultswithin the time period is included. [facility] Glucose Blood, POC 183 60 - 200 mg/dL QC Media Lot # [id number] Lot# Expiration Date 5,404 Blood Capillary blood specimen / Unknown 12/01/2024 4:01 PM EST Baltazar Hines MD POINT OF CARE TEST ENTER/EDIT OR DERABLES Final Result * (ABNORMAL) Basic Metabolic Panel (11/27/2024 10:18 AM EST) Only the most recent of2 resultswithin the time period is included. [facility] Sodium 140 135 - 145 mmol/L [facility] Potassium 4.1 3.3 - 5.1 mmol/L [facility] Chloride 107 96 - 108 mmol/L [facility] Carbon Dioxide 24 22 - 29 mmol/L [facility] Anion Gap 13 12 - 20 [facility] Urea Nitrogen (BUN) 27(H) 9 - 16 mg/dL [facility] Creatinine, Serum 1.46(H) 0.5 - 1.4 mg/dL [facility] Estimated Glomerular Filt Rate 47 [facility] Comment:Chronic Kidney Disea se: Estimated GFR < 60 mL/min/1.34j2Sdtwmr Kidney Disease: Estimated GFR < 15 mL/min/1.73m2 Glucose 234(H) 60 - 115 mg/dL [facility] Calcium 9.4 8.4 - 10.2 mg/dL [facility] Blood Venous blood specimen / Unknown 11/27/2024 10:18 AM EST 11/27/2024 11:33 AM EST us Baltazar Name LAB BLOOD ORDERABLES Final Resul t [facility] [address] [place] [phone] * Testosterone, Total, males (Adult), [place] (09/22/2024 4:31 PM EST) Testosterone, Total 275 250 - 1100 ng/dL [facility] Comment:Men with clinically significant hypogonadalsymptoms and testosterone values repeatedly inthe range of the 200-300 ng/dL or less, maybenefit from testosterone treatment afteradequate risk and benefits counseling.For additional information, please refer tohttp://education.Ariisto.Asia Translate/faq/[email or web address](This link is being provided for informational/educational purposes only.)This test was developed and its analytical performancecharacteristics have been determined by [employer] [place], [place]. It hasnot been cleared or approved by the U.S. Food and DrugAdministration. This assay has been validated pursuantto the CLIA regulations and is used for clinicalpurposes.THIS TEST WAS PERFORMED AT:[id number] [place] [address]OCHEMMKEFRA DEUTSCH MD,PHD 09/22/2024 4:31 PM EST 09/22/2024 4:31 PM EST us Generic External Data Provider LAB BLOOD ORDERAB LES Final Result Performing Organization Address [facility] Co de Phone Number [facility] [address] [place] [phone] * PSA,Total (09/22/2024 4:31 PM EST) Prostate Specific Antigen 1.09 <0.05 - 4.0 ng/mL [facility] Comment:PSA methodology: Emerson Garcia i ChemiluminescentMicroparticle Immunoassay (CMIA) 09/22/2024 4:31 PM EST 09/22/2024 4:31 PM EST us Generic External Data Provider LAB BLOOD ORDERAB LES Final Result Performing Organization Address [facility] Co de Phone Number [facility] [address] [place] [phone] * Albumin, Random Urine W/Creatinine (08/13/2024 9:20 AM EDT) Creatinine, Urine 137.88 mg/dL [facility] Microalbumin Urine 14.0 mg/L [facility] Microalbum Creatinine Ratio Ur 10.1 <30 ug/mg cr [facility] Comment:Albumin/Creatinine R atio Reference Ranges: Normal: < 30 ug/mg creatinine Microalbuminuria: 30 - 300 ug/mg creatinineClinical Albuminuria: > 300 ug/mg creatinine Urine (Urine, Random) 08/13/2024 9:20 AM EDT 08/13/2024 10:55 AM EDT Baltazar Hines MD LAB URINE ORDERABLES Final Resul t Performing Organization Address City/[facility] Co de Phone Number [facility] [address] [place] [phone] * (ABNORMAL) Lipid Panel, Standard (08/13/2024 9:20 AM EDT) Triglycerides 232(H) <150 mg/dL [facility] Comment:Desirable Triglyceri de: less than 150 mg/dLBorderline High Triglyceride 150-199 mg/dLHigh Triglyceride: 200-499 mg/dLVery High Triglyceride: greater than or equal to 5OO mg/dL Cholesterol 130 <200 mg/dL [facility] Comment:Desirable Cholestero l: less than 200 mg/dLBorderline High Cholesterol: 200-239 mg/dLHigh Cholesterol: greater than 239 mg/dL LDL Cholesterol Calculated 54 <100 mg/dL [facility] Comment:Desirable LDL: less than 100 mg/dLNear Optimal/Above Optimal LDL: 110- 129 mg/dLBorderline High LDL: 130-159 mg/dLHigh LDL: 160-189 mg/dLVery High LDL: greater than or equal to 190 mg/dL HDL Cholesterol 30(L) >40 mg/dL [facility] Comment:Desirable HDL: great er than 40 mg/dL Note: This HDL assay may give artificially low results in patients with liver disease. Blood Venous blood specimen / Unknown 08/13/2024 9:20 AM EDT 08/13/2024 10:59 AM EDT us Baltazar Hines MD LAB BLOOD ORDERABLES Final Resul t [facility] [address] [place] [phone] * Hm Colonoscopy (04/19/2015) Colonoscopy Normal Normal us Baltazar Hines MD HEALTH MAINTENANCE Final Result from Last 3 Months or Most Recently Relevant to Health Maintenance Insurance MEDICARE Care Teams Land Economist Relationship Specialty Start Date End Date Name, MD Baltazar [address] [place] [phone] PCP - General Family Medicine 10/03/18
--- OUTSIDE RECORDS SUMMARY | 2024-12-09 12:47 | XMS_ITS | Encounter Summary ---
Author Organization [employer] [facility] Address [address] [place] [address] Care Team Providers Care Kick Press Setter Name Role Phone Name, Baltazar CARO Primary Care Provider [phone] Reason for Visit * Consultation (Routine) - Authorized Specialty Diagnoses / Procedures Referred By Yohan ocampo Referred To Contact Nutrition Diagnoses Type 2 diabetes mellitus with other specified complication, without long-term current use of insulin (CMS/HCC) Lona Dsouza FNP [address] [place] [address] Phone: tel: fax: Referral ID Status Reason Start Date Expiration Date Visits Requested Visits Authorized [id number] Authorized Specialty Services Required 09/25/2024 09/25/2025 1 1 Encounter Details Date Type Department Care Team ([facility] st Contact Info) Description 11/10/2024 9:00 AM EST Nutrition [facility] [address] [place], [place] [phone] Donna Whitman [address] [place], [place] [phone] Type 2 diabetes mellitus with other specified [...] mix it and take it. Go to [employer] for all sweets that Pt desires. Food [...] Description 01/01/2025 1:30 PM EDT Clinical Support [facility] [address] [place] [address] [place] [address] documented as of this encounter Visit Diagnoses Diagnosis Type 2 diabetes mellitus with other specified complication, without long-term current use of insulin ([facility]) documented in this encounter Additional Health Concerns Assessment Noted Time PHQ-9 Depression Total Score: 0 01/10/20 24 3:12 PM EDT documented as of this encounter Care Teams Kick Press Setter Relationship Specialty Start Date End Date Name, MD Baltazar [address] [place] [address] PCP - General Family Medicine 10/03/18 documented as of this encounter
--- OUTSIDE RECORDS SUMMARY | 2024-12-09 12:47 | XMS_ITS | Encounter Summary ---
Author Organization [employer] Address [address] [place] [address] Care Team Providers Care Healthcare Translator Name Role Phone Name, Baltazar CARO Primary Care Provider Reason for Visit * Reason Onset Date Comments Med Refill 03/04/2024 Encounter Details Date Type Department Care Team (Late st Contact Info) Description 03/04/2024 Refill [facility] MED[facility] [address] [place], [place] [phone] Name, MD Baltazar [address] [place] [address] Social History Tobacco Use Types Packs/Day Years [...] 1:30 PM EDT Clinical Support [facility] DIABETES/NUTRITION [address] [place] [address] [place] [address] documented as of this encounter Visit Diagnoses Not on filedocumented in this encounter Additional Health Concerns Assessment Noted Time PHQ-9 Depression Total Score: 0 01/10/20 24 3:12 PM EDT documented as of this encounter Care Teams Healthcare Translator Relationship Specialty Start Date End Date Name, MD Baltazar [address] [place] [address] PCP - General Family Medicine 10/03/18 documented as of this encounter
--- OUTSIDE RECORDS SUMMARY | 2024-12-09 12:47 | XMS_ITS | Encounter Summary ---
Author Organization [employer] Address [address] [place] [address] Care Team Providers Care Local Delivery Driver Name Role Phone Name, Baltazar CARO Primary Care Provider [phone] Reason for Visit * Reason Comments Med Refill Encounter Details Date Type Department Care Team ([facility] st Contact Info) Description 11/09/2024 Refill [facility] [address] [place], [place] [phone] Name, MD Baltazar [address] [place] [address] Social History Tobacco Use Types Packs/Day Years [...] Clinical Support [facility] DIABETES/NUTRITION [address] [place] [address] [place] [address] documented as of this encounter Visit Diagnoses Not on filedocumented in this encounter Additional Health Concerns Assessment Noted Time PHQ-9 Depression Total Score: 0 01/10/20 24 3:12 PM EDT documented as of this encounter Care Teams Local Delivery Driver Relationship Specialty Start Date End Date Name, MD Baltazar [address] [place] [address] PCP - General Family Medicine 10/03/18 documented as of this encounter
--- NOTE | 2024-12-09 13:02 | MHC.OFFVIS ---
Vital Signs 12/09/24 13:08 12/09/24 13:11 Height 5 ft 2 in 5 ft 2 in Weight 147 lb 147 lb 6 oz BMI 26.9 27.0 BP 123/64 123/64 Blood Pressure Location Lt brachial Lt brachial Position Sitting Sitting Pulse 94 94 Intake Visit Reasons: left small toe, diabetic, poss I&D Intake Note: Patient is seen in office for evaluation of left 5th toe infection, possible I&D. Pt c/o:callus on the left toe for aprox 3 months, for the past months has an infection, area is red and swollen, denies discharge ref. Dr Vaughan x-ray:12/08/24 Talent Development Director Required: No Accompanied by: Spouse Allergies No Known Allergies Allergy (Verified 12/09/24 13:04) Medication List - Last Reconciled 12/10/24 by Ke Castillo MD atorvastatin 20 mg PO DAILY dulaglutide (Trulicity) mg subcut empagliflozin (Jardiance) 10 mg PO DAILY glimepiride 4 mg PO BID leuprolide acetate (6 month) (Eligard) 45 mg subcut [id number] metformin 500 mg PO BID pioglitazone 15 mg PO DAILY HPI Comments Details: 74-year-old male patient presenting for evaluation of a left small toe skin lesion. He reports initially having a corn on this little toe for which he used an [id number] corn removal pad. Over the next several days he began to note increased swelling and pain associated with this lesion. He was able to remove the corn however noted swelling and redness below the skin. He presents today for possible incision and drainage. He has a past medical history of diabetes and hypercholesterolemia. [facility] Medical History Chronic renal insufficiency Shingles Nocturia Poor urinary stream Benign prostatic hyperplasia with lower urinary tract symptoms Urgency incontinence Erectile dysfunction Prostate cancer Surgical History Hx of inguinal hernia surgery History of lung surgery Social History Patient Tobacco Use Status: Former Tobacco user Review of Systems Const All systems reviewed & are unremarkable except as noted in HPI and below Physical Exam Vital Signs: Last Vital Signs Pulse 94 12/09/24 13:11 BP 123/64 12/09/24 13:11 BMI result Body Mass Index 27.0 Const General: no acute distress Nutritional Appearance: well nourished Orientation/consciousness: patient oriented x3 Limitations: no limitations HEENT Head: Yes normocephalic and Yes atraumatic Resp Effort & Inspection: normal respiratory effort, no audible wheezes, no cough and no respiratory distress Skin Other: Warm, dry, no rash Neuro General: patient oriented x3 Extrem Other: Left 5th toe with a blister located on the medial middle phalanx with no surrounding erythema. The blister appears to have drained spontaneously with no apparent abscess noted. The overlying skin was excised using a sharp scissors. An area of skin measuring approximately 5 mm in diameter was removed. This was then covered with a small sq of silver alginate and a sterile bandage. Assessment & Plan Assessment & Plan (1) Diabetic foot ulcer: Code(s): E11.621 - Type 2 diabetes mellitus with foot ulcer; L97.509 - Non-pressure chronic ulcer of other part of unspecified foot with unspecified severity Category: Medical Qualifiers: Diabetic foot ulcer location: toe Diabetes mellitus type: type 2 Laterality: left Non-pressure ulcer stage: limited to breakdown of skin Qualified Code(s): E11.621 - Type 2 diabetes mellitus with foot ulcer; L97.521 - Non-pressure chronic ulcer of other part of left foot limited to breakdown of skin Plan 74-year-old male patient presenting with a callus of the left 5th toe which subsequently developed into a blister. The blister has open spontaneously and today was debrided of the nonviable tissue. I recommended applying silver alginate which have provided to him. This should be replaced daily after his shower. I have asked him to return in 1 week for wound examination. He should call sooner for any new concerns. Coding Level of Care Code New Pt Level 4 (58021) Diagnoses Diabetic ulcer of toe of left foot associated with type 2 diabetes mellitus, limited to breakdown of skin E11.621; L97.521 Diabetic foot ulcer location: toe Diabetes mellitus type: type 2 Laterality: left Non-pressure ulcer stage: limited to breakdown of skin
[2024-12-09 13:08] VITALS: BP 123/64; PULSE 94; BMI 26.9
[2024-12-09 13:11] VITALS: BP 123/64; PULSE 94; BMI 27.0
== END 2024-12-09 13:23 | disposition home or self-care (01) ==
PROVIDERS: PCP Internal Medicine Geriatric Medicine; Visit Provider Surgery
DX: E11.621 Type 2 diabetes mellitus with foot ulcer (principal); L97.521 Non-pressure chronic ulcer of other part of left foot limited to breakdown of skin
CPT/HCPCS: 99204

== ENCOUNTER → 2024-12-09 12:25 | Outpatient (BNVA) | payer MEDICARE, SELFPAY | PROVIDERS: PCP Internal Medicine Geriatric Medicine; Visit Provider Surgery | DX: E11.621 Type 2 diabetes mellitus with foot ulcer (principal); L97.521 Non-pressure chronic ulcer of other part of left foot limited to breakdown of skin | CPT/HCPCS: 99202 ==

== ENCOUNTER 2024-12-17 09:26 | Outpatient (AMB) | payer MEDICARE, SELFPAY ==
--- NOTE | 2024-12-17 09:40 | MHC.OFFVIS ---
Vital Signs 12/17/24 09:46 Height 5 ft 2 in Weight 149 lb 6 oz BMI 27.3 BP 134/67 Blood Pressure Location Lt brachial Position Sitting Pulse 90 Intake Visit Reasons: one week f/up, diabetic foot ulcer left 5th toe Intake Note: Patient is seen in office for one week follow up, diabetic foot ulcer of the left 5th toe. Pt c/o: minimal discomfort in the toe, denies pain, discharge, admits to healing Cable Weaver Required: No Accompanied by: Self / Same As Patient Allergies No Known Allergies Allergy (Verified 12/17/24 09:46) Medication List - Last Reconciled 12/17/24 by Ke Castillo MD atorvastatin 20 mg PO DAILY dulaglutide (Trulicity) mg subcut empagliflozin (Jardiance) 10 mg PO DAILY glimepiride 4 mg PO BID leuprolide acetate (6 month) (Eligard) 45 mg subcut [id number] metformin 500 mg PO BID pioglitazone 15 mg PO DAILY HPI Comments Details: Patient returns for 1 week follow-up examination of his left little toe ulcer. He reports feeling much improved with decreased pain and little to no drainage. He feels it is healing nicely. [facility] Medical History Chronic renal insufficiency Shingles Nocturia Poor urinary stream Benign prostatic hyperplasia with lower urinary tract symptoms Urgency incontinence Erectile dysfunction Prostate cancer Surgical History Hx of inguinal hernia surgery History of lung surgery Social History Patient Tobacco Use Status: Former Tobacco user Review of Systems Const All systems reviewed & are unremarkable except as noted in HPI and below Physical Exam Const General: no acute distress Nutritional Appearance: well nourished Orientation/consciousness: patient oriented x3 Limitations: no limitations HEENT Head: Yes normocephalic and Yes atraumatic Resp Effort & Inspection: normal respiratory effort, no audible wheezes, no cough and no respiratory distress Skin Other: Warm, dry, no rash Neuro General: patient oriented x3 Extrem Other: Left 5th toe is now completely healed with no open wound. Previous blister has reepithelialized. There is no evidence of infection at this time. Assessment & Plan Assessment & Plan (1) Diabetic foot ulcer: Code(s): E11.621 - Type 2 diabetes mellitus with foot ulcer; L97.509 - Non-pressure chronic ulcer of other part of unspecified foot with unspecified severity Category: Medical Qualifiers: Diabetic foot ulcer location: toe Diabetes mellitus type: type 2 Laterality: left Non-pressure ulcer stage: limited to breakdown of skin Qualified Code(s): E11.621 - Type 2 diabetes mellitus with foot ulcer; L97.521 - Non-pressure chronic ulcer of other part of left foot limited to breakdown of skin Plan The left 5th toe ulcer has now completely healed. I recommended applying a protective dressing for the next week after which he may leave the wound open. He is welcome to call at any time should any new wounds develop. Coding Level of Care Code Est Pt Level 3 (41386) Diagnoses Diabetic ulcer of toe of left foot associated with type 2 diabetes mellitus, limited to breakdown of skin E11.621; L97.521 Diabetic foot ulcer location: toe Diabetes mellitus type: type 2 Laterality: left Non-pressure ulcer stage: limited to breakdown of skin
[2024-12-17 09:46] VITALS: BP 134/67; PULSE 90; BMI 27.3
--- OUTSIDE RECORDS SUMMARY | 2024-12-17 10:38 | XMS_ITS | Encounter Summary ---
Author Organization [employer] Address [address] [place] [address] Care Team Providers Care Client Hr Manager Name Role Phone Name, Baltazar CARO Primary Care Provider [phone] Reason for Visit * Reason Onset Date Comments Med Refill 12/06/2024 Encounter Details Date Type Department Care Team (Late st Contact Info) Description 12/06/2024 Refill [facility] MEDICINE [address] [place], [place] [phone] Name, MD Baltazar [address] [place] [address] Social History Tobacco Use Types Packs/Day Years [...] Description 01/01/2025 1:30 PM EDT Clinical Support [facility] DIABETES/NUTRITION [address] [place] [address] [place] [address] documented as of this encounter Visit Diagnoses Not on filedocumented in this encounter Additional Health Concerns Assessment Noted Time PHQ-9 Depression Total Score: 0 01/10/20 24 3:12 PM EDT documented as of this encounter Care Teams Client Hr Manager Relationship Specialty Start Date End Date Name, MD Baltazar [address] [place] [address] PCP - General Family Medicine 10/03/18 documented as of this encounter
--- OUTSIDE RECORDS SUMMARY | 2024-12-17 10:38 | XMS_ITS | Encounter Summary ---
Author Organization [employer] Address [address] [facility] 7 [place] [address] Care Team Providers Care Central Supply Nurse Name Role Phone Name, Baltazar CARO Primary Care Provider [phone] Encounter Details Date Type Department Care Team [...] Description 01/01/2025 1:30 PM EDT Clinical Support [facility] DIABETES/NUTRITION [address] [place] [address] [place] [address] documented as of this encounter Visit Diagnoses Not on filedocumented in this encounter Additional Health Concerns Assessment Noted Time PHQ-9 Depression Total Score: 0 01/10/20 24 3:12 PM EDT documented as of this encounter Care Teams Central Supply Nurse Relationship Specialty Start Date End Date Name, MD Baltazar [address] [place] [address] PCP - General Family Medicine 10/03/18 documented as of this encounter
--- OUTSIDE RECORDS SUMMARY | 2024-12-17 10:38 | XMS_ITS | Encounter Summary ---
Author Organization [employer] Address [address] [facility] [address], [place] [address] Care Team Providers Care Vb Net Programmer Name Role Phone Name, Baltazar CARO Primary Care Provider [phone] Reason for Visit * Reason Comments Foot Pain Encounter Details Date Type Department Care Team ([facility] st Contact Info) Description 12/08/2024 10:20 AM EST Office Visit [facility] [address] [place] [phone] Antoni Vaughan MD [address] [place] [address] Toe infection (Primary Dx) Social History Tobacco [...] visit: Toe infection ?abscess X-rays done in [facility] reviewed by me do not appear to show evidence of osteomyelitis. [facility] radiology report will be done today. Covered area with Bacitracin and Band-Aid. Prescribed doxycycline and Duricef. I called [facility] General Surgeons office, and they kindly scheduled [...] Upcoming Encounters Date Type Department Care Team ([facility] st Contact Info) Description 01/01/2025 1:30 PM EDT Clinical Support [facility] DIABETES/NUTRITION [address] [place] [address] [place] [address] Scheduled Orders Name Type Priority Associated Diagnoses Orde r Schedule XR toe fifth LT min 2V Imaging Routine Toe infection Expected: 12/08/2024, Expires: 12/08/2025 documented as of this encounter Visit Diagnoses Diagnosis Toe infection- Primary documented in this encounter Additional Health Concerns Assessment Noted Time PHQ-9 Depression Total Score: 0 01/10/20 24 3:12 PM EDT documented as of this encounter Care Teams Vb Net Programmer Relationship Specialty Start Date End Date Name, MD Baltazar [address] [place] [address] PCP - General Family Medicine 10/03/18 documented as of this encounter
--- OUTSIDE RECORDS SUMMARY | 2024-12-17 10:38 | XMS_ITS | Encounter Summary ---
Author Organization [employer] Address [address] [facility] [address], [place] [address] Care Team Providers Care Training Development Director Name Role Phone Name, Baltazar CARO Primary Care Provider [phone] Encounter Details Date Type Department Care Team (Latest Contact Info) Description 12/04/2024 9:00 AM EST Clinical Support [facility] DIABETES/NUTRITION [address] [place], [place] [phone] Donna Whitman RD [address] [place], [place] [phone] Type 2 diabetes mellitus with other specified complication, without long-term current use of insulin ([facility]) (Primary Dx) Social History Tobacco Use Types [...] Clinical Support [facility] DIABETES/NUTRITION [address] [place] [address] [place] [address] documented as of this encounter Visit Diagnoses Diagnosis Type 2 diabetes mellitus with other specified complication, without long-term current use of insulin ([facility])- Primary documented in this encounter Additional Health Concerns Assessment Noted Time PHQ-9 Depression Total Score: 0 01/10/20 24 3:12 PM EDT documented as of this encounter Care Teams Training Development Director Relationship Specialty Start Date End Date Name, MD Baltazar [address] [place] [address] PCP - General Family Medicine 10/03/18 documented as of this encounter
--- OUTSIDE RECORDS SUMMARY | 2024-12-17 10:38 | XMS_ITS | Encounter Summary ---
Author Organization [employer] [facility] Address [address] [place] [address] Care Team Providers Care Healthcare Representative Name Role Phone Baltazar Hines MD Primary Care Provider Reason for Referral * Consultation (Routine) - Authorized Specialty Diagnoses / Procedures Referred By Contchristina t Referred To Contact Pharmacy Diagnoses Type 2 diabetes mellitus with other specified complication, without long-term current use of insulin (CMS/HCC) Stage 3a chronic kidney disease (CKD) (CMS/HCC) Baltazar Hines MD [address] [place] [address] Phone: tel: fax: Referral ID Status Reason Start Date Expiration Date Visits Requested Visits Authorized [id number] Authorized Consult and Treat 12/01/2024 12/01/2025 6 6 Reason for Visit * Reason Comments Diabetes Encounter Details Date Type Department Care Team (Late st Contact Info) Description 12/01/2024 4:00 PM EST Office Visit [facility] MEDICINE [address] [place], [place] [phone] Baltazar Hines MD [address] [place], [place] [phone] Type 2 diabetes mellitus with other specified [...] documented in this encounter Progress Notes * Blatazar Name, - 12/01/2024 4:00 PM EST Subjective [...] complication, without long-term current use of insulin ([facility]) Comments: Patient is recommended to [...] 1:30 PM EDT Clinical Support [facility] DIABETES/NUTRITION [address] [place] [address] [place] [address] Scheduled Referrals Name Type Priority Associated Diagnoses Orde r Schedule Referral to Pharmacy CDTM Outpatient Referral Routine Type 2 diabetes mellitus with other specified complication, without long-term current use of insulin ([facility]) Ordered: 12/01/2024 documented as of this encounter Procedures Procedure Name Priority Date/Time Associated Diagnosis Comments POCT GLYCATED HEMOGLOBIN, TOTAL Routine 12/01/2024 4:02 PM EST Type 2 diabetes mellitus with other specified complication, without long-term current use of insulin ([facility]) POCT GLUCOSE Routine 12/01/2024 4:01 PM EST Type 2 diabetes mellitus with other specified complication, without long-term current use of insulin ([facility]) documented in this encounter Results [...] complication, without long-term current use of insulin ([facility])- Primary documented in this encounter Additional Health Concerns Assessment Noted Time PHQ-9 Depression Total Score: 0 01/10/20 24 3:12 PM EDT documented as of this encounter Care Teams Healthcare Representative Relationship Specialty Start Date End Date Name, MD Baltazar [address] [place] [address] PCP - General Family Medicine 10/03/18 documented as of this encounter
--- OUTSIDE RECORDS SUMMARY | 2024-12-17 10:38 | XMS_ITS | Encounter Summary ---
Author Organization [email or web address] Address [address] [place] [address] Care Team Providers Care Sky Diver Name Role Phone Name, Baltazar CARO Primary Care Provider Reason for Visit * Reason Onset Date Comments Created In Error 07/17/2024 Encounter Details Date Type Department Care Team ([facility] st Contact Info) Description 07/17/[address] [facility] MEDICINE [address] [place], [place] [phone] Name, MD Baltazar [address] [place] [address] Created In Error Social History Tobacco Use [...] PM EDT Clinical Support [facility] DIABETES/NUTRITION [address] [place] [address] [place] [address] documented as of this encounter Visit Diagnoses Not on filedocumented in this encounter Additional Health Concerns Assessment Noted Time PHQ-9 Depression Total Score: 0 01/10/20 24 3:12 PM EDT documented as of this encounter Care Teams Sky Diver Relationship Specialty Start Date End Date Name, MD Baltazar [address] [place] [address] PCP - General Family Medicine 10/03/18 documented as of this encounter
--- OUTSIDE RECORDS SUMMARY | 2024-12-17 10:39 | XMS_ITS | Encounter Summary ---
Author Organization [employer] Address [address] [facility] 7 [place] [address] Care Team Providers Care Museum Docent Name Role Phone Name, Baltazar CARO Primary Care Provider [phone] Encounter Details Date Type Department Care Team [...] Description 01/01/2025 1:30 PM EDT Clinical Support [facility] DIABETES/NUTRITION [address] [place] [address] [place] [address] documented as of this encounter Visit Diagnoses Not on filedocumented in this encounter Additional Health Concerns Assessment Noted Time PHQ-9 Depression Total Score: 0 01/10/20 24 3:12 PM EDT documented as of this encounter Care Teams Museum Docent Relationship Specialty Start Date End Date Name, MD Baltazar [address] [place] [address] PCP - General Family Medicine 10/03/18 documented as of this encounter
--- OUTSIDE RECORDS SUMMARY | 2024-12-17 10:39 | XMS_ITS | Encounter Summary ---
Author Organization [employer] Address [address] [place] [address] Care Team Providers Care Photogrammetry Airplane Pilot Name Role Phone Name, Baltazar CARO Primary Care Provider [phone] Reason for Visit * Reason Comments Med Refill Encounter Details Date Type Department Care Team ([facility] st Contact Info) Description 12/10/2024 Refill [facility] MEDICINE [address] [place], [place] [phone] Name, MD Baltazar [address] [place] [address] Social History Tobacco Use Types Packs/Day Years [...] Clinical Support [facility] DIABETES/NUTRITION [address] [place] [address] [place] [address] documented as of this encounter Visit Diagnoses Not on filedocumented in this encounter Additional Health Concerns Assessment Noted Time PHQ-9 Depression Total Score: 0 01/10/20 24 3:12 PM EDT documented as of this encounter Care Teams Photogrammetry Airplane Pilot Relationship Specialty Start Date End Date Name, MD Baltazar [address] [place] [address] PCP - General Family Medicine 10/03/18 documented as of this encounter
--- OUTSIDE RECORDS SUMMARY | 2024-12-17 10:39 | XMS_ITS | Encounter Summary ---
Author Organization [employer] Address [address] [place] [address] Care Team Providers Care Tree And Shrub Technician Name Role Phone Name, Baltazar CARO Primary Care Provider [phone] Reason for Visit * Reason Comments Med Refill Encounter Details Date Type Department Care Team (Late st Contact Info) Description 07/14/2023 Refill [facility] MEDICINE [address] [place], [place] [phone] Name, MD Baltazar [address] [place] [address] Social History Tobacco Use Types Packs/Day Years [...] 01/01/2025 1:30 PM EDT Clinical Support [facility] DIABETES/NUTRITION [address] [place] [address] [place] [address] documented as of this encounter Visit Diagnoses Not on filedocumented in this encounter Additional Health Concerns Assessment Noted Time PHQ-9 Depression Total Score: 0 10/10/20 22 3:39 PM EST documented as of this encounter Care Teams Tree And Shrub Technician Relationship Specialty Start Date End Date Name, MD Baltazar [address] [place] [address] PCP - General Family Medicine 10/03/18 documented as of this encounter
--- OUTSIDE RECORDS SUMMARY | 2024-12-17 10:39 | XMS_ITS | Encounter Summary ---
Author Organization [employer] Address [address] [place] [address] Care Team Providers Care Copy Technician Name Role Phone Name, Baltazar CARO Primary Care Provider [phone] Reason for Visit * Reason Onset Date Comments chartprep 11/30/2024 Encounter Details Date Type Department Care Team ([facility] st Contact Info) Description 11/30/2024 Telephone [facility] MEDICINE [address] [place] [address] Abraham Cel[place] chartprep Social History Tobacco Use Types Packs/Day [...] Description 01/01/2025 1:30 PM EDT Clinical Support [facility] DIABETES/NUTRITION [address] [place] [address] Donna Whitman, STEPHANIE [address] [place] [address] documented as of this encounter Visit Diagnoses Not on filedocumented in this encounter Additional Health Concerns Assessment Noted Time PHQ-9 Depression Total Score: 0 01/10/20 24 3:12 PM EDT documented as of this encounter Care Teams Copy Technician Relationship Specialty Start Date End Date Name, MD Baltazar [address] [place], [place] [phone] PCP - General Family Medicine 10/03/18 documented as of this encounter
--- OUTSIDE RECORDS SUMMARY | 2024-12-17 10:39 | XMS_ITS | Encounter Summary ---
Author Organization [employer] Address [address] [place] [address] Care Team Providers Care Hydraulic Boom Operator Name Role Phone Name, Baltazar CARO Primary Care Provider [phone] Reason for Visit * Reason Onset Date Comments Med Refill 02/10/2024 Encounter Details Date Type Department Care Team (Late st Contact Info) Description 02/10/2024 Refill [facility] MEDICINE [address] [place], [place] [phone] Name, MD Baltazar [address] [place] [address] Social History Tobacco Use Types Packs/Day Years [...] 01/01/2025 1:30 PM EDT Clinical Support [facility] DIABETES/NUTRITION [address] [place] [address] [place] [address] documented as of this encounter Visit Diagnoses Not on filedocumented in this encounter Additional Health Concerns Assessment Noted Time PHQ-9 Depression Total Score: 0 01/10/20 24 3:12 PM EDT documented as of this encounter Care Teams Hydraulic Boom Operator Relationship Specialty Start Date End Date Name, MD Baltazar [address] [place] [address] PCP - General Family Medicine 10/03/18 documented as of this encounter
--- OUTSIDE RECORDS SUMMARY | 2024-12-17 10:39 | XMS_ITS | Encounter Summary ---
Author Organization [employer] Address [address] [place] [address] Care Team Providers Care Pumper Gager Name Role Phone Name, Baltazar CARO Primary Care Provider [phone] Reason for Visit * Reason Onset Date Comments Med Refill 07/30/2023 Encounter Details Date Type Department Care Team ([facility] st Contact Info) Description 07/30/2023 Telephone [facility] MEDICINE [address] [place], [place] [phone] Name, MD Baltazar [address] [place] [address] Med Refill Social History Tobacco Use Types [...] - 08/02/2023 10:48 AM EDT Tc from [facility] states metFORMIN (Glucophage) 500 MG tablet was supposed to be sent to [facility]/pharmacy #[id number] - [address] * Telephone Encounter - Abbi Harding LPN - 07/31/2023 12:29 PM EDT Please review request I don't see any documentation that medication was increased. * Telephone Encounter - Elissa Templeton - 07/31/2023 12:16 PM EDT TC from [facility] requesting a med refill on metFORMIN (Glucophage) 500 MG tablet pt is using medication1 tab twice a day. Script said 1 tab a day. Please to change directions. Please to be sent to [facility] Pharmacy. PCP DR. Hines documented in this encounter Plan of Treatment Upcoming Encounters Date Type Department Care Team (Late st Contact Info) Description 01/01/2025 1:30 PM EDT Clinical Support [facility] DIABETES/NUTRITION [address] [place], [place] [phone] Donna Whitman [address] [place] [address] documented as of this encounter Visit Diagnoses Not on filedocumented in this encounter Additional Health Concerns Assessment Noted Time PHQ-9 Depression Total Score: 0 10/10/20 22 3:39 PM EST documented as of this encounter Care Teams Pumper Gager Relationship Specialty Start Date End Date Name, MD Baltazar [address] [place] [address] PCP - General Family Medicine 10/03/18 documented as of this encounter
--- OUTSIDE RECORDS SUMMARY | 2024-12-17 10:39 | XMS_ITS | Encounter Summary ---
Author Organization [employer] Address [address] [facility] 7 [place] [address] Care Team Providers Care Indoor Sports Centre Manager Name Role Phone Name, Baltazar CARO [...] Description 01/01/2025 1:30 PM EDT Clinical Support [facility] DIABETES/NUTRITION [address] [place] [address] [place] [address] documented as of this encounter Visit Diagnoses Not on filedocumented in this encounter Additional Health Concerns Assessment Noted Time PHQ-9 Depression Total Score: 0 01/10/20 24 3:12 PM EDT documented as of this encounter Care Teams Indoor Sports Centre Manager Relationship Specialty Start Date End Date Name, MD Baltazar [address] [place] [address] PCP - General Family Medicine 10/03/18 documented as of this encounter
--- OUTSIDE RECORDS SUMMARY | 2024-12-17 10:39 | XMS_ITS | Encounter Summary ---
Author Organization [employer] Address [address] [facility] 7t [place] [address] Care Team Providers Care Filtration Plant Mechanic Name Role Phone Name, Baltazar CARO Primary Care Provider [phone] Encounter Details Date Type Department Care Team (Late st Contact Info) Description 12/08/2024 Orders Only [facility] [address] [place], [place] [phone] Antoni Vaughan MD [address] [place], [place] [phone] Social History Tobacco Use Types Packs/Day Years [...] Description 01/01/2025 1:30 PM EDT Clinical Support [facility] DIABETES/NUTRITION [address] [place] [address] [place] [address] documented as of this encounter Procedures Procedure Name Priority Date/Time Associated Diagnosis Comments XR TOES 2+ VIEWS LEFT Routine 12/08/2024 1:09 PM EST documented in this encounter Results * XR Toes 2+ Left (12/08/2024 1:09 PM EST) Anatomical Region Laterality Modality Lower Extremities, Toes Left [facility] 12/08/2024 1:09 PM EST Narrative 12/08/2024 1:11 PM EST ?[facility] ?[address] [facility]. ?[place] [address] ?XRay Report ? Signed ? Patient: Cormier Izaguirre,Jamir ?MR#: [id number] ?? [id number] ? : 1950 ?Acct:[id number] ? Age/Sex: 74 / M ?ADM Date: 02/18/25 ? Loc: HO.HHCX ? Attending Dr: Antoni Vaughan MD ? Ordering Physician: ANTONI VAUGHAN MD ?? Date of Service: 12/08/24 ?? Procedure(s): XR toe LT min 2V ?? Accession Number(s): [id number] ? cc: ANTONI VAUGHAN MD ? CLINICAL [...] DD/ 1309 ? TD/TT: 12/08/24 1309 ? Credit Advisor: ? Procedure Note Yaya, Image - 12/08/[address] [address] XRay Report Signed Patient: Earlene Jimenez#: [id number] : 2Acct:[id number] Age/Sex: 74 / MADM Date: 12/08/24 Loc: HO.HHCX Attending Dr: Antoni Vaughan MD Ordering Physician: ANTONI VAUGHAN MD Date of Service: 12/08/24 Procedure(s): XR toe LT min 2V Accession Number(s): [id number] cc: ANTONI VAUGHAN MD CLINICAL HISTORY: SKIN [...] 12/08/24 1310 DD/ 1309 TD/TT: 12/08/24 1309 Credit Advisor: us Antoni Vaughan MD IMG XR PROCEDURES Edited Result - Final documented in this encounter Visit Diagnoses Not on filedocumented in this encounter Additional Health Concerns Assessment Noted Time PHQ-9 Depression Total Score: 0 01/10/20 24 3:12 PM EDT documented as of this encounter Care Teams Filtration Plant Mechanic Relationship Specialty Start Date End Date Name, MD Baltazar [address] [place] [address] PCP - General Family Medicine 10/03/18 documented as of this encounter
--- OUTSIDE RECORDS SUMMARY | 2024-12-17 10:39 | XMS_ITS | Encounter Summary ---
Author Organization [employer] Address [address] [place] [address] Care Team Providers Care Patient Support Partner Name Role Phone Name, Baltazar CARO Primary Care Provider [phone] Reason for Visit * Reason Onset Date Comments Med Refill 03/04/2024 Encounter Details Date Type Department Care Team (Late st Contact Info) Description 03/04/2024 Refill [facility] MEDICINE [address] [place], [place] [phone] Name, MD Baltazar [address] [place] [address] Social History Tobacco Use Types Packs/Day Years [...] Description 01/01/2025 1:30 PM EDT Clinical Support [facility] DIABETES/NUTRITION [address] [place] [address] [place] [address] documented as of this encounter Visit Diagnoses Not on filedocumented in this encounter Additional Health Concerns Assessment Noted Time PHQ-9 Depression Total Score: 0 01/10/20 24 3:12 PM EDT documented as of this encounter Care Teams Patient Support Partner Relationship Specialty Start Date End Date Name, MD Baltazar [address] [place] [address] PCP - General Family Medicine 10/03/18 documented as of this encounter
--- OUTSIDE RECORDS SUMMARY | 2024-12-17 10:39 | XMS_ITS | Clinical Summary ---
Author Organization [employer] Address [address] [place] [address], [place] [address] Care Team Providers Care Milling General Superintendent Name Role Phone Name, Baltazar CARO Primary Care Provider [phone] Allergies No known active allergies Medications leuprolide, [...] complication, without long-term current use of insulin ([facility]) Inject 4.5 mg under the skin 1 (one) time per week. 2 mL 3 08/19/20 24 025 Active glucose blood (OneTouch Verio) test stripIndicati ons:Type 2 diabetes mellitus with other specified complication, without long-term current use of insulin ([facility]) Use one test strip to check blood sugar by subcutaneous route once per day. DiagnosisType 2 diabetes mellitus with other complication without use of insuliln ([facility]) Code: E11.69 100 strip 3 08/21/20 24 Active empagliflozin (Jardiance) 10 MG Take 1 tablet (10 mg) by mouth Once per day. 30 tablet 2 12/01/19 25 025 Active Veltassa 8.4 g pack DISSOLVE 1 PACKET AND TAKE BY MOUTH ONCE DAILY 30 each 12/10/19 25 Active Veltassa 8.4 g pack DISSOLVE 1 PACKET AND TAKE BY MOUTH ONCE DAILY 30 each 11/10/19 25 025 Discontinued doxycycline (Vibramycin) 100 MG capsule Take 1 capsule (100 mg) by mouth 2 times daily for 7 days. Take with at least 8 ounces (large glass) of water, do not lie down for 30 minutes after 14 capsule 12/08/19 25 025 cefadroxil (Duricef) 500 MG capsule Take 1 capsule (500 mg) by mouth 2 times daily for 7 days. 14 capsule 12/08/19 25 025 Active Problems Problem Noted Date Diagnosed Date Stage 3a chronic kidney disease (CKD) 09/08/2022 Paralysis of diaphragm 09/08/2022 Type 2 diabetes mellitus with other specified co mplication 10/03/2018 Assessment & Plan (09/29/2024 8:10 AM EST): POCT glucose 153 A1C 8.7 Dietary and exercise counseling Patient to continue with prescribed meds-Trulicity to 4.5 weekly & metformin 500 mg bid Referral to flatbed press operator Obstructive sleep apnea syndrome 10/03/2018 Malignant tumor of prostate 10/03/2018 Encounters Date Type Department Care Team Description 12/10/2024 Refill [facility] MEDICINE [address] [place] [phone] NameBaltazar MD 12/08/2024 10:20 AM EST Office Visit [facility]IN [facility] [address] [place] [phone] Antoni Vaughan MD Toe infection (Primary Dx) 12/08/2024 Orders Only [facility] [address] [place] [address] Antoni Vaughan MD 12/06/2024 Refill [facility] MEDICINE [address] [place] [address] Baltazar Hines MD 12/04/2024 9:00 AM EST Clinical Support [facility] DIABETES/NUTRITION [address] [place] [address] Donna Whitman, STEPHANIE Type 2 diabetes mellitus with other specified complication, without long-term current use of insulin ([facility]) (Primary Dx) 12/04/2024 Travel 12/01/2024 4:00 PM EST Office Visit [facility] MEDICINE [address] [place] [address] Baltazar Hines MD Type 2 diabetes mellitus with other specified complication, without long-term current use of insulin (CMS/HCC) (Primary Dx) 12/01/2024 Travel 11/30/2024 Telephone [facility] MEDICINE [address] [place] [address] Abraham Celeste MA chartprep 11/27/2024 Travel 11/10/2024 9:00 AM EST Nutrition [facility] DIABETES/NUTRITION [address] [place] [address] Type 2 diabetes mellitus with other specified complication, without long-term current use of insulin (CMS/HCC) 11/10/2024 Travel 11/09/2024 Refill [facility] MEDICINE [address] [place] [address] Baltazar Hines MD 11/04/2024 Travel 10/08/2024 Telephone [facility] MED & PEDS [address] [place] [address] Baltazar Hines MD Med Refill 09/25/2024 3:30 PM EST Office Visit [address] [address] Lona Dsouza, MATERIALS MANAGER Type 2 diabetes mellitus with other specified complication, without long-term current use of insulin ([facility]) (Primary Dx) 09/24/2024 Telephone [facility] MEDICINE [address] [place] [address] Lani Mayo MA Chart Prep 09/22/2024 Telephone [facility] MEDICINE [address] [place] [address] Sallie Lacy NP 09/22/2024 Orders Only GENERIC EXTERNAL DATA DEPARTMENT Provider, Generic External Data 09/18/2024 Travel from Last 3 Months Immunizations Name Administration [facility] [address] [place], [place] [phone] Donna Whitman [address] [place] [address] Health Maintenance Due Date Last Done Comments [...] complication, without long-term current use of insulin ([facility]) POCT GLUCOSE Routine 12/01/2024 4:01 PM EST Type 2 diabetes mellitus with other specified complication, without long-term current use of insulin ([facility]) BASIC METABOLIC PANEL Routine 11/27/2024 [...] Laterality Modality Lower Extremities, Toes Left [facility] 12/08/2024 1:09 PM EST Narrative 12/08/2024 1:11 PM EST ?[facility] ?[address] ?[place] [address] ?XRay Report ? Signed ? Patient: Cormier Izaguirre,Jamir ?MR#: [id number] ?? [id number] ? : 1950 ?Acct:[id number] ? Age/Sex: 74 / M ?ADM Date: 12/08/24 ? Loc: HO.HHCX ? Attending Dr: Antoni Vaughan MD ? Ordering Physician: ANTONI VAUGHAN MD ?? Date of Service: 12/08/24 ?? Procedure(s): XR toe LT min 2V ?? Accession Number(s): [id number] ? cc: ANTONI VAUGHAN MD ? CLINICAL [...] DD/ 1309 ? TD/TT: 12/08/24 1309 ? Powder Mixer: ? Procedure Note Yaya, Image - 12/08/2024 [place] [address] XRay Report Signed Patient: Earlene Jimenez#: [id number] : 2Acct:[id number] Age/Sex: 74 / MADM Date: 12/08/24 Loc: HO.HHCX Attending Dr: Antoni Vaughan MD Ordering Physician: ANTONI VAUGHAN MD Date of Service: 12/08/24 Procedure(s): XR toe LT min 2V Accession Number(s): [id number] cc: ANTONI VAUGHAN MD CLINICAL HISTORY: SKIN [...] 12/08/24 1310 DD/ 1309 TD/TT: 12/08/24 1309 Powder Mixer: Antoni Vaughan MD IMG XR PROCEDURES Edited Result - Final * (ABNORMAL) POCT HGB A1C (12/01/2024 4:02 PM EST) Only the most recent of2 resultswithin the time period is included. Pathologist [facility] Hemoglobin A1C 9.5(A) 4.0 - 6.0 % QC Media Lot # [id number] Lot# Expiration Date 7, Blood 12/01/2024 4:02 PM EST Baltazar Hines MD POINT OF CARE TEST ENTER/EDIT OR DERABLES Final Result * POCT Glucose (12/01/2024 4:01 PM EST) Only the most recent of2 resultswithin the time period is included. Pathologist [facility] Glucose Blood, POC 183 60 - 200 mg/dL QC Media Lot # [id number] Lot# Expiration Date [id number] Blood Capillary blood specimen / Unknown 12/01/2024 4:01 PM EST Baltazar Hines MD POINT OF CARE TEST ENTER/EDIT OR DERABLES Final Result * (ABNORMAL) Basic Metabolic Panel (11/27/2024 10:18 AM EST) Only the most recent of2 resultswithin the time period is included. Pathologist [facility] Sodium 140 135 - 145 mmol/L [facility] Potassium 4.1 3.3 - 5.1 mmol/L [facility] Chloride 107 96 - 108 mmol/L [facility] Carbon Dioxide 24 22 - 29 mmol/L [facility] Anion Gap 13 12 - 20 [facility] Urea Nitrogen (BUN) 27(H) 9 - 16 mg/dL [facility] Creatinine, Serum 1.46(H) 0.5 - 1.4 mg/dL [facility] Estimated Glomerular Filt Rate 47 [facility] Comment:Chronic Kidney Disea se: Estimated GFR < 60 mL/min/1.36f2Ispljq Kidney Disease: Estimated GFR < 15 mL/min/1.73m2 Glucose 234(H) 60 - 115 mg/dL [facility] Calcium 9.4 8.4 - 10.2 mg/dL [facility] Blood Venous blood specimen / Unknown 11/27/2024 10:18 AM EST 11/27/2024 11:33 AM EST us Baltazar Name LAB BLOOD ORDERABLES Final Resul t [facility] [address] [place] [phone] * Testosterone, Total, males (Adult), IA (09/22/2024 4:31 PM EST) Testosterone, Total 275 250 - 1100 ng/dL [facility] Comment:Men with clinically significant hypogonadalsymptoms and testosterone values repeatedly inthe range of the 200-300 ng/dL or less, maybenefit from testosterone treatment afteradequate risk and benefits counseling.For additional information, please refer tohttp://education.[employer]/faq/DrvwnRrpagudovpddOWMEMJSJP399(This link is being provided for informational/educational purposes only.)This test was developed and its analytical performancecharacteristics have been determined by [employer] [place], [place]. It hasnot been cleared or approved by the U.S. Food and DrugAdministration. This assay has been validated pursuantto the CLIA regulations and is used for clinicalpurposes.THIS TEST WAS PERFORMED AT:[employer]/[id number] [place] [id number] DEUTSCH MD,PHD 09/22/2024 4:31 PM EST 09/22/2024 4:31 PM EST us Generic External Data Provider LAB BLOOD ORDERAB LES Final Result Performing Organization Address [facility]/ZIP Co de Phone Number [facility] [address] [place] [phone] * PSA,Total (09/22/2024 4:31 PM EST) Prostate Specific Antigen 1.09 <0.05 - 4.0 ng/mL [facility] Comment:PSA methodology: Emerson Garcia i ChemiluminescentMicroparticle Immunoassay (CMIA) 09/22/2024 4:31 PM EST 09/22/2024 4:31 PM EST us Generic External Data Provider LAB BLOOD ORDERAB LES Final Result Performing Organization Address [facility] de Phone Number [facility] [address] [place] [phone] * Albumin, Random Urine W/Creatinine (08/13/2024 9:20 AM EDT) Creatinine, Urine 137.88 mg/dL [facility] Microalbumin Urine 14.0 mg/L [facility] Microalbum Creatinine Ratio Ur 10.1 <30 ug/mg cr [facility] Comment:Albumin/Creatinine R atio Reference Ranges: Normal: < 30 ug/mg creatinine Microalbuminuria: 30 - 300 ug/mg creatinineClinical Albuminuria: > 300 ug/mg creatinine Urine (Urine, Random) 08/13/2024 9:20 AM EDT 08/13/2024 10:55 AM EDT Baltazar Hines MD LAB URINE ORDERABLES Final Resul t Performing Organization Address City/[facility] Co de Phone Number [facility] [address] [place] [phone] * (ABNORMAL) Lipid Panel, Standard (08/13/2024 9:20 AM EDT) Triglycerides 232(H) <150 mg/dL [facility] Comment:Desirable Triglyceri de: less than 150 mg/dLBorderline High Triglyceride 150-199 mg/dLHigh Triglyceride: 200-499 mg/dLVery High Triglyceride: greater than or equal to 5OO mg/dL Cholesterol 130 <200 mg/dL [facility] Comment:Desirable Cholestero l: less than 200 mg/dLBorderline High Cholesterol: 200-239 mg/dLHigh Cholesterol: greater than 239 mg/dL LDL Cholesterol Calculated 54 <100 mg/dL [facility] Comment:Desirable LDL: less than 100 mg/dLNear Optimal/Above Optimal LDL: 110- 129 mg/dLBorderline High LDL: 130-159 mg/dLHigh LDL: 160-189 mg/dLVery High LDL: greater than or equal to 190 mg/dL HDL Cholesterol 30(L) >40 mg/dL [facility] Comment:Desirable HDL: great er than 40 mg/dL Note: This HDL assay may give artificially low results in patients with liver disease. Blood Venous blood specimen / Unknown 08/13/2024 9:20 AM EDT 08/13/2024 10:59 AM EDT us Baltazar Hines MD LAB BLOOD ORDERABLES Final Resul t [facility] [address] [place] [phone] * Hm Colonoscopy (04/19/2015) Colonoscopy Normal Normal us Baltazar Hines MD HEALTH MAINTENANCE Final Result from Last 3 Months or Most Recently Relevant to Health Maintenance Insurance MEDICARE Care Teams Milling General Superintendent Relationship Specialty Start Date End Date Name, MD Baltazar [address] [place] [phone] PCP - General Family Medicine 10/03/18
== END 2024-12-17 10:02 | disposition home or self-care (01) ==
PROVIDERS: PCP Internal Medicine Geriatric Medicine; Visit Provider Surgery
DX: E11.621 Type 2 diabetes mellitus with foot ulcer (principal); L97.521 Non-pressure chronic ulcer of other part of left foot limited to breakdown of skin
CPT/HCPCS: 99213

== ENCOUNTER → 2024-12-17 09:26 | Outpatient (BNVA) | payer MEDICARE, SELFPAY | PROVIDERS: PCP Internal Medicine Geriatric Medicine; Visit Provider Surgery | DX: E11.621 Type 2 diabetes mellitus with foot ulcer (principal); L97.521 Non-pressure chronic ulcer of other part of left foot limited to breakdown of skin | CPT/HCPCS: 99212 ==

== ENCOUNTER 2025-02-15 11:23 | Outpatient (REF) | payer MEDICARE, SELFPAY ==
[2025-02-15 13:30] LABS: Anion Gap 15 (12-20); Blood Urea Nitrogen 31 mg/dL (9-16); Calcium 9.6 mg/dL (8.4-10.2); Carbon Dioxide 22 mmol/L (22-29); Chloride 109 mmol/L (96-108); Estimated Glomerular Filt Rate 38; Glucose Random 190 mg/dL (60-115); Potassium 4.2 mmol/L (3.3-5.1); Sodium 142 mmol/L (135-145)
--- OUTSIDE RECORDS SUMMARY | 2025-02-15 13:47 | XMS_ITS | Encounter Summary ---
Author Organization [employer] Address [address] [place] [address] Care Team Providers Care Corrosion Engineer Name Role Phone Name, Baltazar CARO Primary Care Provider [phone] Reason for Visit * Reason Onset Date Comments Created In Error 07/17/2024 Encounter Details Date Type Department Care Team ([facility] st Contact Info) Description 07/17/2024 Telephone [facility] MEDICINE [address] [place], [place] [phone] Name, MD Baltazar [address] [place] [address] Created In Error Social History Tobacco Use [...] Care Team (Late st Contact Info) Description 03/18/2025 2:30 PM EDT Medication Management [facility] MEDICINE [address] [place] [phone] Adilene Medrano, PharmD [address] [place] [address] 04/26/2025 2:30 PM EDT Office Visit [facility] MED[facility] [address] [place] [address] Name, MD Baltazar [address] [place] [address] documented as of this encounter Visit Diagnoses Not on filedocumented in this encounter Additional Health Concerns Assessment Noted Time PHQ-9 Depression Total Score: 0 01/10/20 24 3:12 PM EDT documented as of this encounter Care Teams Corrosion Engineer Relationship Specialty Start Date End Date Name, MD Baltazar [address] [place] [address] PCP - General Family Medicine 10/03/18 documented as of this encounter
--- OUTSIDE RECORDS SUMMARY | 2025-02-15 13:48 | XMS_ITS | Encounter Summary ---
Author Organization [employer] Address [address] [place] [address] [place] [address] Care Team Providers Care Psychological Anthropologist Name Role Phone Name, Baltazar CARO Primary Care Provider [phone] Encounter Details Date Type Department Care Team ([facility] st Contact Info) Description 02/12/2025 Telephone [facility] MEDICINE [address] [place], [place] [phone] Name, MD Baltazar [address] [place] [address] Social History Tobacco Use Types Packs/Day Years [...] encounter Miscellaneous Notes * Telephone Encounter - Baltazar Hines MD - 02/12/2025 12:07 PM EDT I called the patient we discussed the results of his recent sleep study that confirms LEENA. Auto CPAP 5-20 cm of H2O was recommended for treatment. I will prescribe the CPAP. The patient is encouragedto continue using his CPAP nightly for at least 4 hours. He already has an appointment with me for follow-up in April. documented in this encounter Plan of Treatment Upcoming Encounters Date Type Department Care Team (Late st Contact Info) Description 03/18/2025 2:30 PM EDT Medication Management [facility] MEDICINE [address] [place] [phone] Adilene Medrano, PharmD [address] [place] [phone] 04/26/2025 2:30 PM EDT Office Visit [facility] MED[facility] [address] [place] [phone] Baltazar Hines MD [address] [place] [address] documented as of this encounter Visit Diagnoses Not on filedocumented in this encounter Additional Health Concerns Assessment Noted Time PHQ-9 Depression Total Score: 0 01/10/20 24 3:12 PM EDT documented as of this encounter Care Teams Psychological Anthropologist Relationship Specialty Start Date End Date Baltazar Hines MD [address] [place] [address] PCP - General Family Medicine 10/03/18 documented as of this encounter
--- OUTSIDE RECORDS SUMMARY | 2025-02-15 13:48 | XMS_ITS | Encounter Summary ---
Author Organization [facility] Address [address] [place] [address] Care Team Providers Care Ecdis N Navigation Operator Name Role Phone Name, Baltazar CARO Primary Care Provider [phone] Reason for Visit * Reason Comments Med Refill Encounter Details Date Type Department Care Team (Late st Contact Info) Description 07/14/2023 Refill [facility] [address] [place], [place] [phone] Name, MD Baltazar [address] [place] [address] Social History Tobacco Use Types Packs/Day Years [...] 2:30 PM EDT Medication Management [facility] [address] [place] [address] Adilene Medrano, PharmD [address] [place], [place] [phone] 04/26/2025 2:30 PM EDT Office Visit [facility] [address] [place] [address] Name, MD Baltazar [facility] [place] [address] documented as of this encounter Visit Diagnoses Not on filedocumented in this encounter Additional Health Concerns Assessment Noted Time PHQ-9 Depression Total Score: 0 10/10/20 22 3:39 PM EST documented as of this encounter Care Teams Ecdis N Navigation Operator Relationship Specialty Start Date End Date Name, [place] [address] PCP - General Family Medicine 10/03/18 documented as of this encounter
--- OUTSIDE RECORDS SUMMARY | 2025-02-15 13:48 | XMS_ITS | Encounter Summary ---
Author Organization [employer] Address [address] [place] [address] Care Team Providers Care Basketball Referee Name Role Phone Name, Baltazar CARO Primary Care Provider [phone] Reason for Visit * Reason Comments Med Refill Encounter Details Date Type Department Care Team ([facility] st Contact Info) Description 02/10/2025 Refill [facility] [address] [place], [place] [phone] Name, MD Baltazar [address] [place] [address] Social History Tobacco Use Types Packs/Day Years [...] Description 03/18/2025 2:30 PM EDT Medication Management [facility] [address] [place] [address] Adilene Medrano, PharmD [address] [place] [address] 04/26/2025 2:30 PM EDT Office Visit [facility] [address] [place] [address] NameBaltazar MD [address] [place] [address] documented as of this encounter Visit Diagnoses Not on filedocumented in this encounter Additional Health Concerns Assessment Noted Time PHQ-9 Depression Total Score: 0 01/10/20 24 3:12 PM EDT documented as of this encounter Care Teams Basketball Referee Relationship Specialty Start Date End Date NameBaltazar MD [address] [place] [address] PCP - General Family Medicine 10/03/18 documented as of this encounter
--- OUTSIDE RECORDS SUMMARY | 2025-02-15 13:48 | XMS_ITS | Encounter Summary ---
Author Organization [employer] Address [address] [place] [address] Care Team Providers Care Treating Inspector Name Role Phone Name, Baltazar CARO Primary Care Provider [phone] Reason for Visit * Reason Onset Date Comments Med Refill 02/10/2024 Encounter Details Date Type Department Care Team (Late st Contact Info) Description 02/10/2024 Refill [facility] [address] [place], [place] [phone] Name, MD Baltazar [address] [place] [address] Social History Tobacco Use Types Packs/Day Years [...] Description 03/18/2025 2:30 PM EDT Medication Management [facility] [address] [place] [address] Adilene Medrano, PharmD [address] [place] [address] 04/26/2025 2:30 PM EDT Office Visit [facility] [address] [place] [address] Name, MD Baltazar [address] [place] [address] documented as of this encounter Visit Diagnoses Not on filedocumented in this encounter Additional Health Concerns Assessment Noted Time PHQ-9 Depression Total Score: 0 01/10/20 24 3:12 PM EDT documented as of this encounter Care Teams Treating Inspector Relationship Specialty Start Date End Date Name, MD Baltazar [address] [place] [address] PCP - General Family Medicine 10/03/18 documented as of this encounter
--- OUTSIDE RECORDS SUMMARY | 2025-02-15 13:48 | XMS_ITS | Encounter Summary ---
Author Organization [employer] Address [address] [place] [address] Care Team Providers Care Apiarist Name Role Phone Name, Baltazar CARO Primary Care Provider Reason for Visit * Reason Onset Date Comments Appointment Request 01/04/2025 Encounter Details Date Type Department Care Team ([facility] st Contact Info) Description 01/04/[address] [facility] [address] [place], [place] [phone] Name, MD Baltazar 230 [place] [address] Appointment Request Social History Tobacco Use Types Packs/Day Years [...] encounter Miscellaneous Notes * Telephone Encounter - Gay Diallo - 01/04/2025 10:27 AM EDT Tc from pt requesting to r/s 01/21/25 appt due to a family emergency and will not be retuning to [facility] till that date. documented in this encounter Plan of Treatment Upcoming Encounters Date Type Department Care Team (Late st Contact Info) Description 03/18/2025 2:30 PM EDT Medication Management [facility] [address] [place] [address] Adilene Medrano, PharmD [address] [place] [address] 04/26/2025 2:30 PM EDT Office Visit [facility] [address] [place] [address] NameBaltazar MD [address] [place] [address] documented as of this encounter Visit Diagnoses Not on filedocumented in this encounter Additional Health Concerns Assessment Noted Time PHQ-9 Depression Total Score: 0 01/10/20 24 3:12 PM EDT documented as of this encounter Care Teams Apiarist Relationship Specialty Start Date End Date NameBaltazar MD [address] [place] [address] PCP - General Family Medicine 10/03/18 documented as of this encounter
--- OUTSIDE RECORDS SUMMARY | 2025-02-15 13:48 | XMS_ITS | Clinical Summary ---
Author Organization [employer] Address [address] [place] [address] [place] [address] Care Team Providers Care Plant Buyer Name Role Phone Name, Baltazar CARO Primary Care Provider Allergies No known active allergies Medications metFORMIN (Glucophage) 500 MG tablet Take 1 tablet (500 mg) by mouth with breakfast and with evening meal. 180 tablet 2 08/19/20 24 2024 Active Dulaglutide (Trulicity) 4.5 MG/0.5ML solution auto-injector Indications:T ype 2 diabetes mellitus with other specified complication, without long-term current use of insulin ([facility]) Inject 4.5 mg under the skin 1 (one) time per week. 2 mL 3 08/19/20 24 2024 Active glucose blood (OneTouch Verio) test stripIndicati ons:Type 2 diabetes mellitus with other specified complication, without long-term current use of insulin ([facility]) Use one test strip to check blood sugar by subcutaneous route once per day. DiagnosisType 2 diabetes mellitus with other complication without use of insuliln ([facility]) Code: E11.69 100 strip 3 08/21/20 24 Active empagliflozin (Jardiance) 10 MG Take 1 tablet (10 mg) by mouth Once per day. 30 tablet 2 12/01/19 25 2024 Active Veltassa 8.4 g pack DISSOLVE 1 PACKET AND TAKE BY MOUTH ONCE DAILY 30 each 01/26/20 25 Active atorvastatin (Lipitor) 20 MG tablet TAKE 1 TABLET BY MOUTH EVERY DAY 90 tablet 1 02/12/20 25 Active leuprolide, 6-month, (Eligard) 45 MG injection 2024 Discontinued(T herapy completed) atorvastatin (Lipitor) 20 MG tablet TAKE 1 TABLET BY MOUTH EVERY DAY 90 tablet 1 08/19/20 24 2024 Discontinued Veltassa 8.4 g pack DISSOLVE 1 PACKET AND TAKE BY MOUTH ONCE DAILY 30 each 12/10/19 25 2024 Discontinued Active Problems Problem Noted Date Diagnosed Date Stage 3a chronic kidney disease (CKD) 09/08/2022 Paralysis of diaphragm 09/08/2022 Type 2 diabetes mellitus with other specified co mplication 10/03/2018 Assessment & Plan (09/29/2024 8:10 AM EST): POCT glucose 153 A1C 8.7 Dietary and exercise counseling Patient to continue with prescribed meds-Trulicity to 4.5 weekly & metformin 500 mg bid Referral to tag and label cutter Obstructive sleep apnea syndrome 10/03/2018 Malignant tumor of prostate 10/03/2018 Encounters Date Type Department Care Team Description 02/15/2025 Orders Only [facility] [address] [place] [address] Baltazar Hines MD 02/15/2025 Travel 02/12/2025 Telephone [facility] [address] [place] [address] Baltazar Hines MD 02/10/2025 Refill [facility] [address] [place] [address] Balatzar Hines MD 01/23/2025 Refill [facility] [address] [place] [address] Baltazar Hines MD 01/12/2025 Telephone [facility] [address] [place] [address] Navneet Ivey MA march recalls 01/04/2025 Telephone [facility] [address] [place] [address] Baltazar Hines MD Appointment Request 12/29/2024 Telephone [facility] [address] [place] [address] NUTRITION APPT REQUEST 12/18/2024 Telephone [facility] [address] [place] [address] Baltazar Hines MD Prior Authorization (Veltassa) 12/10/2024 Refill [facility] [address] [place] [address] Baltazar Hines MD 12/08/2024 10:20 AM EST Office Visit [facility] [address] [place] [address] Antoni Vaughan MD Toe infection (Primary Dx) 12/08/2024 Orders Only [facility] [address] [place] [phone] Antoni Vaughan MD 12/06/2024 Refill [facility] [address] [place] [address] Baltazar Hines MD 12/04/2024 9:00 AM EST Clinical Support [facility] DIABETES/NUTRITION [address] [place] [address] Type 2 diabetes mellitus with other specified complication, without long-term current use of insulin (CMS/HCC) (Primary Dx) 12/04/2024 Travel 12/01/2024 4:00 PM EST Office Visit [facility] [address] [place] [address] Baltazar Hines MD Type 2 diabetes mellitus with other specified complication, without long-term current use of insulin (CMS/HCC) (Primary Dx) 12/01/2024 Travel 11/30/2024 Telephone [facility] [address] [place] [phone] Abraham Celeste MA chartprep 11/27/2024 Travel from Last 3 Months Immunizations Name [...] your housing situation today? I have hieu rachel 01/10/[address] you li [...] Description 03/18/2025 2:30 PM EDT Medication Management [facility] [address] [place] [address] Adilene Medrano, PharmD [address] [place] [address] 04/26/2025 2:30 PM EDT Office Visit [facility] [address] [place] [address] Name, MD Baltazar [address] [place] [address] Health Maintenance Due Date Last Done Comments CT Colonography 1950 FIT DNA/Cologuard 1950 FIT 1950 FOBT 1950 Sigmoidoscopy 1950 Hepatitis C Screening 1969 Depression Screening 01/09/2025 [...] older (1 - 1-dose 75+ series) 2026 Eye Exam 12/29/2026 12/29/2024 DTaP/Tdap/Td Vaccines (2 - Td or Tdap) [...] Procedure Name Priority Date/Time Associated Diagnosis Comments BASIC METABOLIC PANEL Routine 02/15/2025 11:26 AM EDT XR TOES 2+ VIEWS LEFT Routine 12/08/2024 1:09 PM EST POCT GLYCATED HEMOGLOBIN, TOTAL Routine 12/01/2024 4:02 PM EST Type 2 diabetes mellitus with other specified complication, without long-term current use of insulin ([facility]) POCT GLUCOSE Routine 12/01/2024 4:01 PM EST Type 2 diabetes mellitus with other specified complication, without long-term current use of insulin (CMS/[facility]) BASIC METABOLIC PANEL Routine 11/27/2024 10:18 AM EST Hyperkalemia ALBUMIN, RANDOM URINE W/CREATININE Routine 08/13/2024 9:20 AM EDT Type 2 diabetes mellitus with other specified complication, without long-term current use of insulin ([facility]) Stage 3a chronic kidney disease (CKD) ([facility]) Chronic neck pain LIPID PANEL, STANDARD Routine 08/13/2024 9:20 AM EDT Type 2 diabetes mellitus with other specified complication, without long-term current use of insulin ([facility]/HCC) Stage 3a chronic kidney disease (CKD) ([facility]) Chronic neck pain HM COLONOSCOPY Routine 04/19/2015 from Last 3 Months or Most Recently Relevant to Health Maintenance Results * (ABNORMAL) Basic Metabolic Panel (02/15/2025 11:26 AM EDT) Only the most recent of2 resultswithin the time period is included. Sodium 142 135 - 145 mmol/L [facility] Potassium 4.2 3.3 - 5.1 mmol/L [facility] Chloride 109(H) 96 - 108 mmol/L [facility] Carbon Dioxide 22 22 - 29 mmol/L [facility] Anion Gap 15 12 - 20 [facility] Urea Nitrogen (BUN) 31(H) 9 - 16 mg/dL [facility] Creatinine, Serum 1.76(H) 0.5 - 1.4 mg/dL [facility] Estimated Glomerular Filt Rate 38 [facility] Comment:Chronic Kidney Disea se: Estimated GFR < 60 mL/min/1.58b9Hjsqhi Kidney Disease: Estimated GFR < 15 mL/min/1.73m2 Glucose 190(H) 60 - 115 mg/dL [facility] Calcium 9.6 8.4 - 10.2 mg/dL [facility] 02/15/2025 11:2 6 AM EDT 02/15/2025 1:07 PM EDT us Baltazar Flora MD LAB BLOOD ORDERABLES Final Resul t [facility] [address] [place] [address] [phone] * XR Toes 2+ Left (12/08/2024 1:09 PM EST) Anatomical Region Laterality Modality Lower Extremities, Toes Left Radiogra phic Imaging 12/08/2024 1:09 PM EST Narrative 12/08/2024 1:11 PM EST ?[facility] ?[address] ?[place] [address] ?XRay Report ? Signed ? Patient: Jamir Jimenez ?MR#: [id number] ?? [id number] ? : 1950 ?Acct:[id number] ? Age/Sex: 74 / M ?ADM Date: 12/08/24 ? Loc: HO.HHCX ? Attending Dr: Antoni Vaughan MD ? Ordering Physician: ANTONI VAUGHAN MD ?? Date of Service: 12/08/24 ?? Procedure(s): XR toe LT min 2V ?? Accession Number(s): [id number] ? cc: ANTONI VAUGHAN MD ? CLINICAL [...] DD/ 1309 ? TD/TT: 12/08/24 1309 ? Centrifugal Screen Tender: ? Procedure Note Yyaa, Image - 12/08/[address] [place] [address] XRay Report Signed Patient: Earlene Jimenez#: [id number] : 2Acct:[id number] Age/Sex: 74 / MADM Date: 12/08/24 Loc: HO.HHCX Attending Dr: Antoni Vaughan MD Ordering Physician: ANTONI VAUGHAN MD Date of Service: 12/08/24 Procedure(s): XR toe LT min 2V Accession Number(s): [id number] cc: ANTONI VAUGHAN MD CLINICAL HISTORY: SKIN [...] 12/08/24 1310 DD/ 1309 TD/TT: 12/08/24 1309 Centrifugal Screen Tender: Antoni Vaughan MD IMG XR PROCEDURES Edited Result - Final * (ABNORMAL) POCT HGB A1C (12/01/2024 4:02 PM EST) Hemoglobin A1C 9.5(A) 4.0 - 6.0 % QC Media Lot # [id number] Lot# Expiration Date , Blood 12/01/2024 4:02 PM EST Baltazar Hines [...] TEST ENTER/EDIT OR DERABLES Final Result * Albumin, Random Urine W/Creatinine (08/13/2024 9:20 AM EDT) Creatinine, Urine 137.88 mg/dL [facility] Microalbumin Urine 14.0 mg/L [facility] Microalbum Creatinine Ratio Ur 10.1 <30 ug/mg cr [facility] Comment:Albumin/Creatinine R atio Reference Ranges: Normal: < 30 ug/mg creatinine Microalbuminuria: 30 - 300 ug/mg creatinineClinical Albuminuria: > 300 ug/mg creatinine Urine (Urine, Random) 08/13/2024 9:20 AM EDT 08/13/2024 10:55 AM EDT us Baltazar Hines MD LAB URINE ORDERABLES Final Resul t [facility] [address] [place] [address] [phone] * (ABNORMAL) Lipid Panel, Standard (08/13/2024 9:20 AM EDT) Triglycerides 232(H) <150 mg/dL [facility] Comment:Desirable Triglyceri de: less than 150 mg/dLBorderline High Triglyceride 150-199 mg/dLHigh Triglyceride: 200-499 mg/dLVery High Triglyceride: greater than or equal to 5OO mg/dL Cholesterol 130 <200 mg/dL [facility] Comment:Desirable Cholestero l: less than 200 mg/dLBorderline High Cholesterol: 200-239 mg/dLHigh Cholesterol: greater than 239 mg/dL LDL Cholesterol Calculated 54 <100 mg/dL [facility] Comment:Desirable LDL: less than 100 mg/dLNear Optimal/Above Optimal LDL: 110- 129 mg/dLBorderline High LDL: 130-159 mg/dLHigh LDL: 160-189 mg/dLVery High LDL: greater than or equal to 190 mg/dL HDL Cholesterol 30(L) >40 mg/dL [facility] Comment:Desirable HDL: great er than 40 mg/dL Note: This HDL assay may give artificially low results in patients with liver disease. Blood Venous blood specimen / Unknown 08/13/2024 9:20 AM EDT 08/13/2024 10:59 AM EDT us Baltazar Hines MD LAB BLOOD ORDERABLES Final Resul t [facility] [address] [place] [address] [phone] * Hm Colonoscopy (04/19/2015) Colonoscopy Normal Normal us Baltazar Hines MD HEALTH MAINTENANCE Final Result from Last 3 Months or Most Recently Relevant to Health Maintenance Insurance [place] [id number] Care Teams Plant Buyer Relationship Specialty Start Date End Date Name, MD Baltazar [address] [place] [address] PCP - General Family Medicine 10/03/18
--- OUTSIDE RECORDS SUMMARY | 2025-02-15 13:48 | XMS_ITS | Encounter Summary ---
Author Organization [employer] Address [address] [place] [address] Care Team Providers Care Associate Professor Of Surgery Name Role Phone Name, Baltazar CARO Primary Care Provider [phone] Reason for Visit * Reason Onset Date Comments Med Refill 07/30/2023 Encounter Details Date Type Department Care Team ([facility] st Contact Info) Description 07/30/2023 Telephone [facility] [address] [place], [place] [phone] Name, MD Baltazar [address] [place] [address] Med Refill Social History Tobacco Use Types [...] - 08/02/2023 10:48 AM EDT Tc from [facility] states metFORMIN (Glucophage) 500 MG tablet was supposed to be sent to [facility]/pharmacy #[id number] * Telephone Encounter - Abbi Harding LPN - 07/31/2023 12:29 PM EDT Please review request I don't see any documentation that medication was increased. * Telephone Encounter - Elissa Templeton - 07/31/2023 12:16 PM EDT TC from [facility] requesting a med refill on metFORMIN (Glucophage) 500 MG tablet pt is using medication1 tab twice a day. Script said 1 tab a day. Please to change directions. Please to be sent to [facility] Pharmacy. PCP DR. Hines documented in this encounter Plan of Treatment Upcoming Encounters Date Type Department Care Team (Late st Contact Info) Description 03/18/2025 2:30 PM EDT Medication Management [facility] [address] [place] [address] Adilene Medrano, PharmD [address] [place] [address] 04/26/2025 2:30 PM EDT Office Visit [facility] [address] [place] [address] Name, [place] [address] documented as of this encounter Visit Diagnoses Not on filedocumented in this encounter Additional Health Concerns Assessment Noted Time PHQ-9 Depression Total Score: 0 10/10/20 22 3:39 PM EST documented as of this encounter Care Teams Associate Professor Of Surgery Relationship Specialty Start Date End Date Name, [place] [address] PCP - General Family Medicine 10/03/18 documented as of this encounter
--- OUTSIDE RECORDS SUMMARY | 2025-02-15 13:48 | XMS_ITS | Encounter Summary ---
Author Organization [employer] Address [address] [place] [address] Care Team Providers Care Home Aide Name Role Phone Name, Baltazar CARO Primary Care Provider [phone] Reason for Visit * Reason Onset Date Comments Med Refill 12/06/2024 Encounter Details Date Type Department Care Team (Late st Contact Info) Description 12/06/2024 Refill [facility] [address] [place], [place] [phone] Name, MD Baltazar [address] [place] [address] Social History Tobacco Use Types Packs/Day Years [...] Description 03/18/2025 2:30 PM EDT Medication Management [facility] [address] [place] [phone] Adilene Medrano, PharmD [address] [place] [phone] 04/26/2025 2:30 PM EDT Office Visit [facility] [address] [place] [phone] Name, MD Baltazar [address] [place] [phone] documented as of this encounter Visit Diagnoses Not on filedocumented in this encounter Additional Health Concerns Assessment Noted Time PHQ-9 Depression Total Score: 0 01/10/20 24 3:12 PM EDT documented as of this encounter Care Teams Home Aide Relationship Specialty Start Date End Date Name, MD Baltazar [address] [place] [phone] PCP - General Family Medicine 10/03/18 documented as of this encounter
--- OUTSIDE RECORDS SUMMARY | 2025-02-15 13:48 | XMS_ITS | Encounter Summary ---
Author Organization [employer] Address [address] [place] [address] 7[place] [address] Care Team Providers Care Regional Tanker Truck Driver Name Role Phone Name, Baltazar CARO Primary Care Provider [phone] Encounter Details Date Type Department Care Team (Late st Contact Info) Description 02/15/2025 Orders Only [facility] [address] [place], [place] [phone] Name, MD Baltazar [address] [place] [address] Social History Tobacco Use Types Packs/Day Years [...] Description 03/18/2025 2:30 PM EDT Medication Management [facility] [address] [place] [phone] Adilene Medrano, PharmD [address] [place] [address] [phone] 04/26/2025 2:30 PM EDT Office Visit [facility] [address] [place] [address] [phone] Name, MD Baltazar [address] [place] [address] [phone] documented as of this encounter Procedures Procedure Name Priority Date/Time Associated Diagnosis Comments BASIC METABOLIC PANEL Routine 02/15/2025 11:26 AM EDT documented in this encounter Results * (ABNORMAL) Basic Metabolic Panel (02/15/2025 11:26 AM EDT) Sodium 142 135 - 145 mmol/L [facility] Potassium 4.2 3.3 - 5.1 mmol/L [facility] Chloride 109(H) 96 - 108 mmol/L [facility] Carbon Dioxide 22 22 - 29 mmol/L [facility] Anion Gap 15 12 - 20 [facility] Urea Nitrogen (BUN) 31(H) 9 - 16 mg/dL [facility] Creatinine, Serum 1.76(H) 0.5 - 1.4 mg/dL [facility] Estimated Glomerular Filt Rate 38 [facility] Comment:Chronic Kidney Disea se: Estimated GFR < 60 mL/min/1.96a5Rravhn Kidney Disease: Estimated GFR < 15 mL/min/1.73m2 Glucose 190(H) 60 - 115 mg/dL [facility] Calcium 9.6 8.4 - 10.2 mg/dL [facility] 02/15/2025 11:2 6 AM EDT 02/15/2025 1:07 PM EDT us Baltazar Hines MD LAB BLOOD ORDERABLES Final Resul t [facility] [address] [place] [phone] documented in this encounter Visit Diagnoses Not on filedocumented in this encounter Additional Health Concerns Assessment Noted Time PHQ-9 Depression Total Score: 0 01/10/20 24 3:12 PM EDT documented as of this encounter Care Teams Regional Tanker Truck Driver Relationship Specialty Start Date End Date Name, MD Baltazar [address] [place] [address] PCP - General Family Medicine 10/03/18 documented as of this encounter
--- OUTSIDE RECORDS SUMMARY | 2025-02-15 13:48 | XMS_ITS | Encounter Summary ---
Author Organization [employer] Address [address] [place] [phone] Care Team Providers Care Film Library Clerk Name Role Phone Name, Baltazar CARO Primary Care Provider [phone] Reason for Visit * Reason Onset Date Comments Med Refill 03/04/2024 Encounter Details Date Type Department Care Team (Late st Contact Info) Description 03/04/[address] [facility] [address] [place], [place] [phone] Name, MD Baltazar [address] [place] [address] Social History Tobacco Use Types Packs/Day Years [...] 03/18/2025 2:30 PM EDT Medication Management [facility] [address] [place] [phone] Adilene Medrano, PharmD [address] [place] [phone] 04/26/2025 2:30 PM EDT Office Visit [facility] [address] [place] [phone] Name, MD Baltazar [address] [place] [phone] documented as of this encounter Visit Diagnoses Not on filedocumented in this encounter Additional Health Concerns Assessment Noted Time PHQ-9 Depression Total Score: 0 01/10/20 24 3:12 PM EDT documented as of this encounter Care Teams Film Library Clerk Relationship Specialty Start Date End Date Name, MD Baltazar [address] [place] [phone] PCP - General Family Medicine 10/03/18 documented as of this encounter
--- OUTSIDE RECORDS SUMMARY | 2025-02-15 13:48 | XMS_ITS | Encounter Summary ---
Author Organization [employer] Address [address] [facility] 7 [place] [address] Care Team Providers Care Lump Receiver Name Role Phone Name, Baltazar CARO Primary Care Provider [phone] Encounter Details Date Type Department Care Team (Latest Contact Info) Description 02/15/2025 Travel Social History Tobacco Use Types Packs/Day [...] Description 03/18/2025 2:30 PM EDT Medication Management [facility] [address] [place] [phone] AloniaAdilene, PharmD [address] [place] [phone] 04/26/2025 2:30 PM EDT Office Visit [facility] [address] [place] [phone] Name, MD Baltazar [address] [place] [phone] documented as of this encounter Visit Diagnoses Not on filedocumented in this encounter Additional Health Concerns Assessment Noted Time PHQ-9 Depression Total Score: 0 01/10/20 24 3:12 PM EDT documented as of this encounter Care Teams Lump Receiver Relationship Specialty Start Date End Date NameBaltazar MD [address] [place] [phone] PCP - General Family Medicine 10/03/18 documented as of this encounter
[2025-02-15 13:52] LABS: Prostate Specific Antigen 1.84 ng/mL (<0.05-4.0)
== END 2025-02-15 11:24 | disposition home or self-care (01) ==
LOC: HO.HHCL 11:23
PROVIDERS: Urology; Visit Provider Internal Medicine Geriatric Medicine
DX: Z12.5 Encounter for screening for malignant neoplasm of prostate (principal); R97.21 Rising PSA following treatment for malignant neoplasm of prostate; E11.69 Type 2 diabetes mellitus with other specified complication; E87.5 Hyperkalemia; N18.30 Chronic kidney disease, stage 3 unspecified
CPT/HCPCS: 36415; 80048; 84153

== ENCOUNTER 2025-02-19 10:36 | Outpatient (REF) | payer MEDICARE, SELFPAY ==
--- NOTE | ~2025-02-19 | XR_ITS ---
EXAMINATION: XR ABDOMEN KUB CLINICAL INDICATION: 74 y.o male with acute right flank pain, concern for renal stone COMPARISON: 12/05/2022. TECHNIQUE: AP view of the abdomen. FINDINGS: Moderate degree of fecal material seen throughout the colon and rectum consistent with moderate constipation. No abnormally dilated loop of bowel. No definite abnormal soft tissue calcifications although the renal shadows are largely obscured by overlying stool. No organomegaly. There is a very gentle S-shaped thoracolumbar scoliosis. Thoracic component is convex to the left. Suspicious bone lesions. Numerous radiation seed implants in the region of the prostate. XR/XR KUB IMPRESSION: 1. Constipation. No bowel obstruction. 2. No abnormal soft tissue calcifications identified, although may be obscured by overlying stool. 3. Numerous seed implants in the region of the prostate. Electronically signed by: Ren Winter MD 02/19/2025 11:06 AM EDT
--- OUTSIDE RECORDS SUMMARY | 2025-02-19 11:45 | XMS_ITS | Clinical Summary ---
Author Organization [employer] Address [address] [place] [address] [facility] [place] [address] Care Team Providers Care Power Press Tender Name Role Phone Name, Baltazar CARO Primary Care Provider [phone] Adilene Medrano PharmD Unavailable [phone] Allergies No known active allergies Medications metFORMIN (Glucophage) 500 MG tablet Take 1 tablet (500 mg) by mouth with breakfast and with evening meal. 180 tablet 2 08/19/20 24 2024 Active atorvastatin (Lipitor) 20 MG tabletIndicat ions:Type 2 diabetes mellitus with other specified complication, without long-term current use of insulin ([facility]) Take 1 tablet (20 mg) by mouth Once per day. 90 tablet 3 02/16/20 25 Active Dulaglutide (Trulicity) 4.5 MG/0.5ML solution auto-injector Indications:T ype 2 diabetes mellitus with other specified complication, without long-term current use of insulin ([facility]) Inject 4.5 mg under the skin 1 (one) time per week. 2 mL 11 02/16/20 25 2025 Active empagliflozin (Jardiance) 10 MGIndications :Type 2 diabetes mellitus with other specified complication, without long-term current use of insulin (CMS/HCC) Take 1 tablet (10 mg) by mouth Once per day. 90 tablet 1 02/16/20 25 Active glucose blood (OneTouch Verio) test stripIndicati ons:Type 2 diabetes mellitus with other specified complication, without long-term current use of insulin (CMS/HCC) Use one test strip to check blood sugar by subcutaneous route once per day. DiagnosisType 2 diabetes mellitus with other complication without use of insuliln ([facility]) Code: E11.69 100 strip 3 02/16/20 25 Active OneTouch Delica Lancets 33G miscIndicatio ns:Type 2 diabetes mellitus with other specified complication, without long-term current use of insulin ([facility]) Use one lancet to check blood sugar by subcutaneous route once per day. DiagnosisType 2 diabetes mellitus with other complication without use of insuliln ([facility]) Code: E11.69 100 each 3 02/16/20 25 Active Multiple Vitamins-Mine rals (CENTRUM SILVER ADULT 50+ PO) Take 1 tablet by mouth Once per day. OTC Active lidocaine (Lidoderm) 5 % patchIndicati ons:Muscle spasm Apply topically to affected areas. Leave on for up to 12 hours 30 patch 1 02/20/20 Active tiZANidine (Zanaflex) 2 MG tabletIndicat ions:Muscle spasm Take 1 tablet (2 mg) by mouth every 6 (six) hours if needed for muscle spasms for up to 10 days. 30 tablet 02/20/20 25 2024 Active acetaminophen (Tylenol Extra Strength) 500 MG tabletIndicat ions:Muscle spasm Take 2 tablets (1,000 mg) by mouth every 6 (six) hours if needed for mild pain. 30 tablet 02/20/20 25 2025 Active leuprolide, 6-month, (Eligard) 45 MG injection 2024 Discontinued(T herapy completed) atorvastatin (Lipitor) 20 MG tablet TAKE 1 TABLET BY MOUTH EVERY DAY 90 tablet 1 08/19/20 24 2024 Discontinued Dulaglutide (Trulicity) 4.5 MG/0.5ML solution auto-injector Indications:T ype 2 diabetes mellitus with other specified complication, without long-term current use of insulin ([facility]) Inject 4.5 mg under the skin 1 (one) time per week. 2 mL 3 08/19/20 24 2024 Discontinued(R eorder (will not trigger notification to Pharmacy)) glucose blood (OneTouch Verio) test stripIndicati ons:Type 2 diabetes mellitus with other specified complication, without long-term current use of insulin ([facility]) Use one test strip to check blood sugar by subcutaneous route once per day. DiagnosisType 2 diabetes mellitus with other complication without use of insuliln ([facility]) Code: E11.69 100 strip 3 08/21/20 24 2024 Discontinued(R eorder (will not trigger notification to Pharmacy)) empagliflozin (Jardiance) 10 MG Take 1 tablet (10 mg) by mouth Once per day. 30 tablet 2 12/01/19 25 2024 Discontinued(R eorder (will not trigger notification to Pharmacy)) Veltassa 8.4 g pack DISSOLVE 1 PACKET AND TAKE BY MOUTH ONCE DAILY 30 each 12/10/19 25 2024 Discontinued Veltassa 8.4 g pack DISSOLVE 1 PACKET AND TAKE BY MOUTH ONCE DAILY 30 each 01/26/20 25 2024 Discontinued(T herapy completed) atorvastatin (Lipitor) 20 MG tablet TAKE 1 TABLET BY MOUTH EVERY DAY 90 tablet 1 02/12/202024 Discontinued(R eorder (will not trigger notification to Pharmacy)) Active Problems Problem Noted Date Diagnosed Date Stage 3a chronic kidney disease (CKD) 09/08/2022 Paralysis of diaphragm 09/08/2022 Type 2 diabetes mellitus with other specified co mplication 10/03/2018 Assessment & Plan (09/29/2024 8:10 AM EST): POCT glucose 153 A1C 8.7 Dietary and exercise counseling Patient to continue with prescribed meds-Trulicity to 4.5 weekly & metformin 500 mg bid Referral to [facility] Obstructive sleep apnea syndrome 10/03/2018 Malignant tumor of prostate 10/03/2018 Encounters Date Type Department Care Team Description 02/19/2025 10:00 AM EDT Office Visit [facility] [address] [place], [place] [phone] Muscle spasm (Primary Dx); Acute right flank pain 02/15/2025 Orders Only [facility] [address] [place] [address] [phone] NameBaltazar MD 02/15/2025 Travel 02/12/2025 Telephone [facility] [address] [place] [address] [phone] Name, MD Baltazar 02/10/2025 Refill [facility] [address] [facility] [place] [address] Baltazar Hines MD 01/23/2025 Refill [facility] [place] [address] Baltazar Hines MD 01/12/2025 Telephone [facility] [place] [address] Navneet Ivey [place] jovani recalls 01/04/2025 Telephone [facility] [place] [address] Baltazar Hines MD Appointment Request 12/29/2024 Telephone [facility] [place] [address] NUTRITION APPT REQUEST 12/18/2024 Telephone [facility] [place] [address] Baltazar Hines MD Prior Authorization (Veltasofiea) 12/10/2024 Refill [facility] [place] [address] Baltazar Hines MD 12/08/2024 10:20 AM EST Office Visit [facility] [place] [address] Antoni Vaughan MD Toe infection (Primary Dx) 12/08/2024 Orders Only [facility] [address] Antoni Vaughan MD 12/06/2024 Refill [facility] [place] [address] Baltazar Hines MD 12/04/2024 9:00 AM EST Clinical Support [facility] DIABETES/NUTRITION [facility] [place] [address] Type 2 diabetes mellitus with other specified complication, without long-term current use of insulin ([facility]) (Primary Dx) 12/04/2024 Travel 12/01/2024 4:00 PM EST Office Visit [facility] [place] [address] Baltazar Hines MD Type 2 diabetes mellitus with other specified complication, without long-term current use of insulin ([facility]) (Primary Dx) 12/01/2024 Travel 11/30/2024 Telephone [facility] [address] [place] [address] Abraham Celeste MA chartprep 11/27/2024 Travel from [...] Sign Reading Time Taken Comments Blood Pressure 125/72 02/19/2025 10:04 AM EDT Pulse 75 02/19/2025 10:04 AM EDT Temperature 36.8 ??C (98.2 ??F) 02/19/2025 10:04 AM E DT Respiratory Rate 16 02/19/2025 10:04 AM EDT Oxygen Saturation 96% 12/08/2024 10:42 AM EST Inhaled Oxygen Concentration - - Weight 66 kg (145 lb 9.6 oz) 02/19/2025 10:04 AM EDT Height 157.5 cm (5' 2 ) 02/19/2025 10:04 AM EDT Body Mass Index 26.63 02/19/2025 10:04 AM EDT Plan of Treatment Upcoming Encounters Date Type Department Care Team (Late st Contact Info) Description 03/18/2025 2:30 PM EDT Medication Management [facility] [address] [place] [phone] Adilene Medrano, PharmD [address] [place] [phone] 04/26/2025 2:30 PM EDT Office Visit [facility] [address] [place] [address] Name, MD Baltazar [address] [place] [phone] Health Maintenance Due Date Last Done Comments [...] Alcohol/Substance Use Screening 12/01/2025 12/01/2024 Tobacco Screening 02/19/2026 02/19/2025 RSV Patients and Patients Aged 60 years [...] Name Priority Date/Time Associated Diagnosis Comments XR KUB AND UPRIGHT 2 VIEWS Routine 02/19/2025 10:38 AM EDT Acute right flank pain POCT URINALYSIS DIPSTICK Routine 02/19/2025 10:28 AM EDT Acute right flank pain PSA, TOTAL Routine 02/15/2025 11:26 AM EDT BASIC METABOLIC PANEL Routine 02/15/2025 11:26 AM EDT XR TOES 2+ VIEWS LEFT Routine 12/08/2024 1:09 PM EST POCT GLYCATED HEMOGLOBIN, TOTAL Routine 12/01/2024 4:02 PM EST Type 2 diabetes mellitus with other specified complication, without long-term current use of insulin (CMS/HCC) POCT GLUCOSE Routine 12/01/2024 4:01 PM EST Type 2 diabetes mellitus with other specified complication, without long-term current use of insulin (CMS/HCC) BASIC METABOLIC PANEL Routine 11/27/2024 10:18 AM [...] Relevant to Health Maintenance Results * XR KUB and Upright 2 Views (02/19/2025 10:38 AM EDT) Anatomical Region Laterality Modality Radiographic Starla ging 02/19/2025 10:3 8 AM EDT Narrative 02/19/2025 11:10 AM EDT ?[facility] ?[address] ?[place] [address] ?XRay Report ? Signed ? Patient: Cormier Zina,Jamir ?MR#: [id number] ?? [id number] ? : 1950 ?Acct:[id number] ? Age/Sex: 74 / M ?ADM Date: 02/19/25 ? Loc: HO.HHCX ? Attending Dr: Priscilla Melara DOUGH MIXER ? Ordering Physician: Priscilla Melara ?? Date of Service: 02/19/25 ?? Procedure(s): XR KUB ?? Accession Number(s): [id number] ? cc: Priscilla Melara DOUGH MIXER ? EXAMINATION: ?? XR ABDOMEN KUB ? CLINICAL INDICATION: ?? 74 y.o male with acute right flank pain, concern for renal stone ? COMPARISON: ?? 12/05/2022. ? TECHNIQUE: ?? AP view of the abdomen. ? FINDINGS: ?? Moderate degree of fecal material seen throughout the colon and rectum ?? consistent with moderate constipation. ?? No abnormally dilated loop of bowel. ?? No definite abnormal soft tissue calcifications although the renal ?? shadows are largely obscured by overlying stool. ?? No organomegaly. ? There is a very gentle S-shaped thoracolumbar scoliosis. Thoracic ?? component is convex to the left. ?? Suspicious bone lesions. ?? Numerous radiation seed implants in the region of the prostate. ? XR/XR KUB ?? IMPRESSION: ?? 1. Constipation. No bowel obstruction. ?? 2. No abnormal soft tissue calcifications identified, although may be ?? obscured by overlying stool. ?? 3. Numerous seed implants in the region of the prostate. ? Electronically signed by: ??Ren Winter MD ??02/19/2025 11:06 AM EDT RP ? Dictated By: ?Ren Winter MD ? Signed By: ?<Electronically signed by Ren Winter MD in OV> ?02/19/25 1106 ? DD/ 1038 ? TD/TT: 02/19/25 1057 ? Investment Specialist: ? Procedure Note Donotjoseter, Image - 02/19/2025 [facility] [address] [place] [address] XRay Report Signed Patient: Earlene Jimenez#: [id number] : 2Acct:[id number] Age/Sex: 74 / MADM Date: 02/19/25 Loc: HO.HHCX Attending Dr: Priscilla COX Ordering Physician: Priscilla Melara Date of Service: 02/19/25 Procedure(s): XR KUB Accession Number(s): [id number] cc: Priscilla Melara EXAMINATION: XR ABDOMEN KUB CLINICAL INDICATION: 74 y.o male with acute right flank pain, concern for renal stone COMPARISON: 12/05/2022. TECHNIQUE: AP view of the abdomen. FINDINGS: Moderate degree of fecal material seen throughout the colon and rectum consistent with moderate constipation. No abnormally dilated loop of bowel. No definite abnormal soft tissue calcifications although the renal shadows are largely obscured by overlying stool. No organomegaly. There is a very gentle S-shaped thoracolumbar scoliosis. Thoracic component is convex to the left. Suspicious bone lesions. Numerous radiation seed implants in the region of the prostate. XR/XR KUB IMPRESSION: 1. Constipation. No bowel obstruction. 2. No abnormal soft tissue calcifications identified, although may be obscured by overlying stool. 3. Numerous seed implants in the region of the prostate. Electronically signed by: Ren Winter MD 02/19/2025 11:06 AM EDT RP Dictated By: Ren Winter MD Signed By: <Electronically signed by Ren Winter MD in OV> 02/19/25 1106 DD/ 1038 TD/TT: 02/19/25 1057 Investment Specialist: Priscilla CONWAYP IMG XR PROCEDURES Final Resul t * POCT urinalysis dipstick manually resulted (02/19/2025 10:28 AM EDT) Color, UA Yellow Clarity, UA Clear Glucose, UA Trace Comment:1000 Bilirubin, UA Negative Ketones, UA Negative Spec Grav, UA 1.010 Blood, UA Negative Negative, None Detected pH, UA 5.5 Protein, UA Negative Urobilinogen, UA 0.2 Leukocytes, UA Negative Negative, Rare, Trace Nitrite, UA Negative Negative, None Detected Urine 02/19/2025 10:2 8 AM EDT [facility] DOUGH MIXER POINT OF CARE TEST ENTER/EDIT ORDERABLES Final Result * PSA,Total (02/15/2025 11:26 AM EDT) Pathologist [facility] Prostate Specific Antigen 1.84 <0.05 - 4.0 ng/mL [facility] Comment:PSA methodology: Emerson Garcia i ChemiluminescentMicroparticle Immunoassay (CMIA) 02/15/2025 11:2 6 AM EDT 02/15/2025 1:07 PM EDT Generic External Data Provider LAB BLOOD ORDERAB LES Final Result [facility] [address] [place] [phone] * (ABNORMAL) Basic Metabolic Panel (02/15/2025 11:26 AM EDT) Only the most recent of2 resultswithin the time period is included. Sodium 142 135 - 145 mmol/L [facility] Potassium 4.2 3.3 - 5.1 mmol/L [facility] Chloride 109(H) 96 - 108 mmol/L [facility] Carbon Dioxide 22 22 - 29 mmol/L [facility] Anion Gap 15 12 - 20 [facility] Urea Nitrogen (BUN) 31(H) 9 - 16 mg/dL [facility] Creatinine, Serum 1.76(H) 0.5 - 1.4 mg/dL [facility] Estimated Glomerular Filt Rate 38 [facility] Comment:Chronic Kidney Disea se: Estimated GFR < 60 mL/min/1.62r2Wnekfh Kidney Disease: Estimated GFR < 15 mL/min/1.73m2 Glucose 190(H) 60 - 115 mg/dL [facility] Calcium 9.6 8.4 - 10.2 mg/dL [facility] 02/15/2025 11:2 6 AM EDT 02/15/2025 1:07 PM EDT us Baltazar Name MD LAB BLOOD ORDERABLES Final Resul t [facility] [address] [facility] [place] [address] [phone] * XR Toes 2+ Left (12/08/2024 1:09 PM EST) Anatomical Region Laterality Modality Lower Extremities, Toes Left Radiogra phic Imaging 12/08/2024 1:09 PM EST Narrative 12/08/2024 1:11 PM EST ?[facility] ?[address] ?[place] [address] ?XRay Report ? Signed ? Patient: Jamir Jimenez ?MR#: [id number] ?? [id number] ? : 1950 ?Acct:[id number] ? Age/Sex: 74 / M ?ADM Date: 12/08/24 ? Loc: HO.HHCX ? Attending Dr: Antoni Vaughan MD ? Ordering Physician: ANTONI VAUGHAN MD ?? Date of Service: 12/08/24 ?? Procedure(s): XR toe LT min 2V ?? Accession Number(s): [id number] ? cc: ANTONI VAUGHAN MD ? CLINICAL [...] DD/ 1309 ? TD/TT: 12/08/24 1309 ? Investment Specialist: ? Procedure Note Donotcelinainterpreter, Image - 12/08/2024 [facility] [address] [place] [address] XRay Report Signed Patient: Earlene Jimenez#: [id number] : 2Acct:[id number] Age/Sex: 74 / MADM Date: 12/08/24 Loc: HO.HHCX Attending Dr: Antoni Vaughan MD Ordering Physician: ANTONI VAUGHAN MD Date of Service: 12/08/24 Procedure(s): XR toe LT min 2V Accession Number(s): [id number] cc: ANTONI VAUGHAN MD CLINICAL HISTORY: SKIN [...] 12/08/24 1310 DD/ 1309 TD/TT: 12/08/24 1309 Investment Specialist: Antoni Vaughan MD IMG XR PROCEDURES Edited Result - Final * (ABNORMAL) POCT HGB A1C (12/01/2024 4:02 PM EST) Hemoglobin A1C 9.5(A) 4.0 - 6.0 % QC Media Lot # [id number] Lot# Expiration Date 7 Blood 12/01/2024 4:02 PM EST us Baltazar Hines MD POINT OF CARE TEST ENTER/EDIT OR DERABLES Final Result * POCT Glucose (12/01/2024 4:01 PM EST) Glucose Blood, POC 183 60 - 200 mg/dL QC Media Lot # [id number] Lot# Expiration Date 5,407 Blood Capillary blood specimen / Unknown 12/01/2024 4:01 PM EST us Baltazar Hines MD POINT OF CARE TEST ENTER/EDIT OR DERABLES Final Result * Albumin, Random Urine W/Creatinine (08/13/2024 9:20 AM EDT) Creatinine, Urine 137.88 mg/dL [facility] Microalbumin Urine 14.0 mg/L [facility] Microalbum Creatinine Ratio Ur 10.1 <30 ug/mg cr [facility] Comment:Albumin/Creatinine R atio Reference Ranges: Normal: < 30 ug/mg creatinine Microalbuminuria: 30 - 300 ug/mg creatinineClinical Albuminuria: > 300 ug/mg creatinine Urine (Urine, Random) 08/13/2024 9:20 AM EDT 08/13/2024 10:55 AM EDT Result Ernestine Hines MD LAB URINE ORDERABLES Final Resul t [facility] [address] [place], [place] [phone] * (ABNORMAL) Lipid Panel, Standard (08/13/2024 9:20 AM EDT) Triglycerides 232(H) <150 mg/dL [facility] Comment:Desirable Triglyceri de: less than 150 mg/dLBorderline High Triglyceride 150-199 mg/dLHigh Triglyceride: 200-499 mg/dLVery High Triglyceride: greater than or equal to 5OO mg/dL Cholesterol 130 <200 mg/dL [facility] Comment:Desirable Cholestero l: less than 200 mg/dLBorderline High Cholesterol: 200-239 mg/dLHigh Cholesterol: greater than 239 mg/dL LDL Cholesterol Calculated 54 <100 mg/dL [facility] Comment:Desirable LDL: less than 100 mg/dLNear Optimal/Above Optimal LDL: 110- 129 mg/dLBorderline High LDL: 130-159 mg/dLHigh LDL: 160-189 mg/dLVery High LDL: greater than or equal to 190 mg/dL HDL Cholesterol 30(L) >40 mg/dL [facility] Comment:Desirable HDL: great er than 40 mg/dL Note: This HDL assay may give artificially low results in patients with liver disease. Blood Venous blood specimen / Unknown 08/13/2024 9:20 AM EDT 08/13/2024 10:59 AM EDT us Baltazar Hines MD LAB BLOOD ORDERABLES Final Resul t [facility] [address] [place] [phone] * Hm Colonoscopy (04/19/2015) Colonoscopy Normal Normal us Baltazar Hines MD HEALTH MAINTENANCE Final Result from Last 3 Months or Most Recently Relevant to Health [place] [id number] Care Teams Power Press Tender Relationship Specialty Start Date End Date Name, MD Baltazar [address] [place] [address] PCP - General Family Medicine 10/03/18 Adilene Medrano PharmD [address] [place] [phone] Pharmacist Internal Medicine 02/15/25
--- OUTSIDE RECORDS SUMMARY | 2025-02-19 11:45 | XMS_ITS | Encounter Summary ---
Author Organization [employer] Address [address] [place] [address] Care Team Providers Care Education Program Associate Name Role Phone Name, Baltazar CARO Primary Care Provider [phone] Adilene Medrano PharmD Unavailable [phone] Reason for Referral * Medications - Closed Specialty Diagnoses / Procedures Referred By Yohan ocampo Referred To Contact Diagnoses Muscle spasm Priscilla Melara FNP [address] [place] [address] Phone: tel: fax: Referral ID Status Reason Start Date Expiration Date Visits Re quested Visits Authorized [id number] Closed 02/19/2025 02/19/2026 1 1 Reason for Visit * Reason Comments Back Pain Encounter Details Date Type Department Care Team (Late st Contact Info) Description 02/19/2025 10:00 AM EDT Office Visit [facility] [address] [place] [address] Muscle spasm (Primary Dx); Acute right flank pain Social History Tobacco Use Types Packs/Day Years [...] 16 02/19/2025 10:04 AM EDT Oxygen Saturation - - Inhaled Oxygen Concentration - - Weight 66 kg (145 lb 9.6 oz) 02/19/2025 10:04 AM EDT Height 157.5 cm (5' 2 ) 02/19/2025 10:04 AM EDT Body Mass Index 26.63 02/19/2025 10:04 AM EDT documented in this encounter Plan of Treatment Upcoming Encounters Date Type Department Care Team (Late st Contact Info) Description 03/18/2025 2:30 PM EDT Medication Management [facility] [address] [place] [phone] Adilene Medrano, PharmD [address] [place] [address] 04/26/2025 2:30 PM EDT Office Visit [facility] [place] [address] Name, MD Baltazar [address] [place] [address] documented as of this encounter Procedures Procedure Name Priority Date/Time Associated Diagnosis Comments XR KUB AND UPRIGHT 2 VIEWS Routine 02/19/2025 10:38 AM EDT Acute right flank pain POCT URINALYSIS DIPSTICK Routine 02/19/2025 10:28 AM EDT Acute right flank pain documented in this encounter Results * XR KUB and Upright 2 Views (02/19/2025 10:38 AM EDT) Anatomical Region Laterality Modality Radiographic Starla ging 02/19/2025 10:3 8 AM EDT Narrative 02/19/2025 11:10 AM EDT ?[facility] ?[address] ?[place] [address] ?XRay Report ? Signed ? Patient: Casa Izaguirre,Jamir ?MR#: [id number] ?? [id number] ? : 1950 ?Acct:[id number] ? Age/Sex: 74 / M ?ADM Date: 02/19/25 ? Loc: HO.HHCX ? Attending Dr: Priscilla Melara CNC SERVICE TECHNICIAN ? Ordering Physician: Priscilla Melara CNC SERVICE TECHNICIAN ?? Date of Service: 02/19/25 ?? Procedure(s): XR KUB ?? Accession Number(s): [id number] ? cc: Priscilla Melara CNC SERVICE TECHNICIAN ? EXAMINATION: ?? XR ABDOMEN KUB ? [...] DD/ 1038 ? TD/TT: 02/19/25 1057 ? Complaint Operator: ? Procedure Note Yaya, Abhilash - 02/19/[address] [address] XRay Report Signed Patient: Earlene Jimenez#: [id number] : 2Acct:[id number] Age/Sex: 74 / MADM Date: 02/19/25 Loc: HO.HHCX Attending Dr: Priscilla COX Ordering Physician: Priscilla Melara Date of Service: 02/19/25 Procedure(s): XR KUB Accession Number(s): [id number] cc: Priscilla Melara EXAMINATION: XR ABDOMEN KUB [...] Winter MD 02/19/2025 11:06 AM EDT RP Workstation: [id number] Dictated By: Ren Winter MD Signed By: <Electronically signed by Ren Winter MD in OV> 02/19/25 1106 DD/ 1038 TD/TT: 02/19/25 1057 Complaint Operator: [facility] IMG XR PROCEDURES Final Resul t * [...] Detected Urine 02/19/2025 10:2 8 AM EDT [facility] POINT OF CARE TEST ENTER/EDIT ORDERABLES Final Result documented in this encounter Visit Diagnoses Diagnosis Muscle spasm- Primary Spasm of muscle Acute right flank pain documented in this encounter Additional Health Concerns Assessment Noted Time PHQ-9 Depression Total Score: 0 01/10/20 24 3:12 PM EDT documented as of this encounter Care Teams Education Program Associate Relationship Specialty Start Date End Date Name, MD Baltazar [address] [place] [address] PCP - General Family Medicine 10/03/18 Adilene Medrano PharmD [address] [place] [address] Pharmacist Internal Medicine 02/15/25 documented as of this encounter
--- OUTSIDE RECORDS SUMMARY | 2025-02-19 11:45 | XMS_ITS | Encounter Summary ---
Author Organization [employer] Address [address] [place] [address] 7 [place] [address] Care Team Providers Care Clothes Separator Name Role Phone Name, Baltazar CARO Primary Care Provider [phone] Adilene Medrano PharmD Unavailable [phone] Encounter Details Date Type Department Care Team [...] Description 03/18/2025 2:30 PM EDT Medication Management [facility] MEDICINE [address] [place] [phone] Adilene Medrano PharmD [address] [place] [address] 269[address] 04/26/2025 2:30 PM EDT Office Visit [facility] MEDICINE [address] [place] [address] Name, MD Baltazar [address] [place] [address] documented as of this encounter Visit Diagnoses Not on filedocumented in this encounter Additional Health Concerns Assessment Noted Time PHQ-9 Depression Total Score: 0 01/10/20 24 3:12 PM EDT documented as of this encounter Care Teams Clothes Separator Relationship Specialty Start Date End Date NameBaltazar MD [address] [place] [address] PCP - General Family Medicine 10/03/18 Adilene Medrano PharmD [address] [place] [address] 65858 Pharmacist Internal Medicine 02/15/25 documented as of this encounter
--- OUTSIDE RECORDS SUMMARY | 2025-02-19 11:45 | XMS_ITS | Encounter Summary ---
Author Organization [employer] Address [address] [facility] [place] [address] Care Team Providers Care Assistant Account Manager Name Role Phone Name, Baltazar CARO Primary Care Provider [phone] Adilene Medrano PharmD Unavailable [phone] Encounter Details Date Type Department Care Team (Late st Contact Info) Description 02/15/2025 Orders Only [facility] 230 [place], [place] [phone] Name, MD Baltazar 230 [place] [address] Social History Tobacco Use Types Packs/Day Years [...] Description 03/18/2025 2:30 PM EDT Medication Management [facility] [address] [place] [address] Adilene Medrano PharmD [address] [place] [address] 139[address] 04/26/2025 2:30 PM EDT Office Visit [facility] [address] [place] [address] [phone] Name, MD Baltazar [address] [place] [address] documented as of this encounter Procedures Procedure Name Priority Date/Time Associated Diagnosis Comments PSA, TOTAL Routine 02/15/2025 11:26 AM EDT BASIC METABOLIC PANEL Routine 02/15/2025 11:26 AM EDT documented in this encounter Results * PSA,Total (02/15/2025 11:26 AM EDT) Prostate Specific Antigen 1.84 <0.05 - 4.0 ng/mL [facility] Comment:PSA methodology: Emerson Garcia i ChemiluminescentMicroparticle Immunoassay (CMIA) 02/15/2025 11:2 6 AM EDT 02/15/2025 1:07 PM EDT us Generic External Data Provider LAB BLOOD ORDERAB LES Final Result Performing Organization Address [facility] de Phone Number [facility] [address] [place] [address] [phone] * (ABNORMAL) Basic Metabolic Panel (02/15/2025 11:26 AM EDT) Sodium 142 135 - 145 mmol/L [facility] Potassium 4.2 3.3 - 5.1 mmol/L [facility] Chloride 109(H) 96 - 108 mmol/L [facility] Carbon Dioxide 22 22 - 29 mmol/L [facility] Anion Gap 15 12 - 20 [facility] Urea Nitrogen (BUN) 31(H) 9 - 16 mg/dL [facility] Creatinine, Serum 1.76(H) 0.5 - 1.4 mg/dL [facility] Estimated Glomerular Filt Rate 38 [facility] Comment:Chronic Kidney Disea se: Estimated GFR < 60 mL/min/1.21d2Uelent Kidney Disease: Estimated GFR < 15 mL/min/1.73m2 Glucose 190(H) 60 - 115 mg/dL [facility] Calcium 9.6 8.4 - 10.2 mg/dL [facility] 02/15/2025 11:2 6 AM EDT 02/15/2025 1:07 PM EDT us Baltazar Hines MD LAB BLOOD ORDERABLES Final Resul t Performing Organization Address [facility] Co de Phone Number [facility] [address] [place] [address] [phone] documented in this encounter Visit Diagnoses Not on filedocumented in this encounter Additional Health Concerns Assessment Noted Time PHQ-9 Depression Total Score: 0 01/10/20 24 3:12 PM EDT documented as of this encounter Care Teams Assistant Account Manager Relationship Specialty Start Date End Date Name, MD Baltazar [address] [place] [address]779 PCP - General Family Medicine 10/03/18 Adilene Medrano, Marvin [address] [place] [address] [phone] Pharmacist Internal Medicine 02/15/25 documented as of this encounter
--- OUTSIDE RECORDS SUMMARY | 2025-02-19 11:45 | XMS_ITS | Encounter Summary ---
Author Organization [employer] Address [address] [place] [address] Care Team Providers Care Planning Assistant Name Role Phone Name, Baltazar CARO Primary Care Provider [phone] Adilene Medrano PharmD Unavailable [phone] Reason for Visit * Reason Onset Date Comments Med Refill 12/06/2024 Encounter Details Date Type Department Care Team (Late st Contact Info) Description 12/06/2024 Refill [facility] MEDICINE [address] [place], [place] [phone] Name, MD Baltazar 230 [place] [address] Social History Tobacco Use Types Packs/Day Years [...] 03/18/2025 2:30 PM EDT Medication Management [facility] MEDICINE [address] [place] [address] Adilene Medrano PharmD [address] [place] [address] 04/26/2025 2:30 PM EDT Office Visit [facility] MEDICINE [address] [place] [address] 19526 Name, MD Baltazar [address] [place] [address] 88[address] documented as of this encounter Visit Diagnoses Not on filedocumented in this encounter Additional Health Concerns Assessment Noted Time PHQ-9 Depression Total Score: 0 01/10/20 24 3:12 PM EDT documented as of this encounter Care Teams Planning Assistant Relationship Specialty Start Date End Date Name, MD Baltazar [address] [place] [address] PCP - General Family Medicine 10/03/18 Adilene Medrano PharmD [address] [place] [address] 60594 Pharmacist Internal Medicine 02/15/25 documented as of this encounter
--- OUTSIDE RECORDS SUMMARY | 2025-02-19 11:45 | XMS_ITS | Encounter Summary ---
Author Organization [employer] Address [address] [place] [address] Care Team Providers Care Film Splicer Name Role Phone Name, Baltazar CARO Primary Care Provider [phone] Adilene Medrano PharmD Unavailable [phone] Reason for Visit * Reason Onset Date Comments Med Refill 03/04/2024 Encounter Details Date Type Department Care Team (Late st Contact Info) Description 03/04/2024 Refill [facility] MEDICINE 230 [place], [place] [phone] Name, MD Baltazar 230 [place], [place] [phone] Social History Tobacco Use Types Packs/Day Years [...] 03/18/2025 2:30 PM EDT Medication Management [facility] MEDICINE [address] [place] [address] Adilene Medrano PharmD [address] [place] [address] 04/26/2025 2:30 PM EDT Office Visit [facility] MEDICINE [address] [place] [address] 0[address] Name, MD Baltazar [address] [place] [address] 7[address] documented as of this encounter Visit Diagnoses Not on filedocumented in this encounter Additional Health Concerns Assessment Noted Time PHQ-9 Depression Total Score: 0 01/10/20 24 3:12 PM EDT documented as of this encounter Care Teams Film Splicer Relationship Specialty Start Date End Date Name, MD Baltazar [address] [place] [address] 36981 PCP - General Family Medicine 10/03/18 Adilene Medrano PharmD [address] [place] [address] 93382 Pharmacist Internal Medicine 02/15/25 documented as of this encounter
--- OUTSIDE RECORDS SUMMARY | 2025-02-19 11:45 | XMS_ITS | Encounter Summary ---
Author Organization [employer] Address [address] [place] [address] Care Team Providers Care Supervisor Public Health Nursing Name Role Phone Name, Baltazar CARO Primary Care Provider Adilene Medrano PharmD Unavailable [phone] Reason for Visit * Reason Onset Date Comments Appointment Request 01/04/2025 Encounter Details Date Type Department Care Team (Late st Contact Info) Description 01/04/2025 Telephone [facility] MEDICINE 230 [place], [place] [phone] Name, MD Baltazar 230 [place] [address] Appointment Request Social History Tobacco Use Types [...] emergency and [facility] that date. documented in this encounter Plan of Treatment Upcoming Encounters Date Type Department Care Team (Late st Contact Info) Description 03/18/2025 2:30 PM EDT Medication Management [facility] MEDICINE [address] [place] [address] Adilene Medrano, PharmD 230 [place] [address] 04/26/2025 2:30 PM EDT Office Visit [facility] MEDICINE [address] [place] [address] NameBaltazar MD [address] [place] [address] documented as of this encounter Visit Diagnoses Not on filedocumented in this encounter Additional Health Concerns Assessment Noted Time PHQ-9 Depression Total Score: 0 01/10/20 24 3:12 PM EDT documented as of this encounter Care Teams Supervisor Public Health Nursing Relationship Specialty Start Date End Date NameBaltazar MD 230 [place] [address] PCP - General Family Medicine 10/03/18 Adilene Medrano PharmD 230 [place] [address] Pharmacist Internal Medicine 02/15/25 documented as of this encounter
--- OUTSIDE RECORDS SUMMARY | 2025-02-19 11:45 | XMS_ITS | Encounter Summary ---
Author Organization [employer] Address [address] [place] [address] Care Team Providers Care Forming Machine Upkeep Mechanic Helper Name Role Phone Name, Baltazar CARO Primary Care Provider [phone] Adilene Medrano PharmD Unavailable [phone] Reason for Visit * Reason Onset Date Comments Med Refill 02/10/2024 Encounter Details Date Type Department Care Team (Late st Contact Info) Description 02/10/2024 Refill [facility] MED[facility]INE 230 [place], [place] [phone] Name, MD Baltazar 230 [place] [address] Social History Tobacco Use Types Packs/Day Years [...] Description 03/18/2025 2:30 PM EDT Medication Management [facility] MEDICINE [address] [place] [address] Adilene Medrano PharmD [address] [place] [address] 04/26/2025 2:30 PM EDT Office Visit [facility]ICINE [address] [place] [address] Name, MD Batlazar [address] [place] [address] documented as of this encounter Visit Diagnoses Not on filedocumented in this encounter Additional Health Concerns Assessment Noted Time PHQ-9 Depression Total Score: 0 01/10/20 24 3:12 PM EDT documented as of this encounter Care Teams Forming Machine Upkeep Mechanic Helper Relationship Specialty Start Date End Date Name, MD Baltazar [address] [place] [address] 6[address]69 PCP - General Family Medicine 10/03/18 Adilene Medrano PharmD [address] [place] [address] 37887 Pharmacist Internal Medicine 02/15/25 documented as of this encounter
--- OUTSIDE RECORDS SUMMARY | 2025-02-19 11:45 | XMS_ITS | Encounter Summary ---
Author Organization [facility] Address [address] [place] [address] Care Team Providers Care Supervisor Ordnance Truck Installation Name Role Phone Name, Baltazar CARO Primary Care Provider [phone] Adilene Medrano PharmD Unavailable [phone] Reason for Visit * Reason Comments Med Refill Encounter Details Date Type Department Care Team (Late st Contact Info) Description 07/14/2023 Refill [facility] MEDICINE 230 [place], [place] [phone] Name, MD Baltazar 230 [place], [place] [phone] Social History Tobacco Use Types Packs/Day Years [...] 03/18/2025 2:30 PM EDT Medication Management [facility] MEDICINE 230 [place], [place] [phone] AloniaAdilene, PharmD 230 [place] [address] 04/26/2025 2:30 PM EDT Office Visit [facility] [place] [address] Name, [place] [address] documented as of this encounter Visit Diagnoses Not on filedocumented in this encounter Additional Health Concerns Assessment Noted Time PHQ-9 Depression Total Score: 0 10/10/20 22 3:39 PM EST documented as of this encounter Care Teams Supervisor Ordnance Truck Installation Relationship Specialty Start Date End Date Name, [place] [address] PCP - General Family Medicine 10/03/18 Adilene Medrano PharmD [address] [place] [address] Pharmacist Internal Medicine 02/15/25 documented as of this encounter
--- OUTSIDE RECORDS SUMMARY | 2025-02-19 11:45 | XMS_ITS | Encounter Summary ---
Author Organization [employer] Address [address] [place] [address] Care Team Providers Care Rail Signal Mechanic Name Role Phone Name, Baltazar CARO Primary Care Provider [phone] Adilene Medrano PharmD Unavailable [phone] Reason for Visit * Reason Onset Date Comments Created In Error 07/17/2024 Encounter Details Date Type Department Care Team ([facility] st Contact Info) Description 07/17/2024 Telephone [facility] MEDICINE 230 [place], [place] [phone] Name, MD Baltazar 230 [place] [address] Created In Error Social History Tobacco Use [...] Description 03/18/2025 2:30 PM EDT Medication Management [facility] MEDICINE [address] [place] [address] Adilene Medrano PharmD [address] [place] [address] 04/26/2025 2:30 PM EDT Office Visit [facility] MEDICINE [address] [place] [address] 24337 Name, MD Baltazar [address] [place] [address] 10352 documented as of this encounter Visit Diagnoses Not on filedocumented in this encounter Additional Health Concerns Assessment Noted Time PHQ-9 Depression Total Score: 0 01/10/20 24 3:12 PM EDT documented as of this encounter Care Teams Rail Signal Mechanic Relationship Specialty Start Date End Date Name, MD Baltazar [address] [place] [address] 28229 PCP - General Family Medicine 10/03/18 Adilene Medrano PharmD [address] [place] [address] 64383 Pharmacist Internal Medicine 02/15/25 documented as of this encounter
--- OUTSIDE RECORDS SUMMARY | 2025-02-19 11:45 | XMS_ITS | Encounter Summary ---
Author Organization [employer] Address [address] [place] [address] [place], [place] [address] Care Team Providers Care Bottling Supervisor Name Role Phone Name, Baltazar CARO Primary Care Provider [phone] Adilene Medrano PharmD Unavailable [phone] Reason for Visit * Reason Onset Date Comments Med Refill 07/30/2023 Encounter Details Date Type Department Care Team (Late st Contact Info) Description 07/30/2023 Telephone [facility] MEDICINE [address] [place], [place] [phone] Name, MD Baltazar 230 [place] [address] Med Refill Social History Tobacco Use Types [...] - 08/02/2023 10:48 AM EDT Tc from [facility] states metFORMIN (Glucophage) 500 MG tablet was supposed to be sent to [facility]/pharmacy [address] [place] [address] * Telephone Encounter - Abbi Harding LPN - 07/31/2023 12:29 PM EDT Please review request I don't see any documentation that medication was increased. * Telephone Encounter - Elissa Templeton - 07/31/2023 12:16 PM EDT TC from [facility] requesting a med refill on metFORMIN (Glucophage) 500 MG tablet pt is using medication1 tab twice a day. Script said 1 tab a day. Please to change directions. Please to be sent to [facility] Pharmacy. PCP DR. Hines documented in this encounter Plan of Treatment Upcoming Encounters Date Type Department Care Team (Late st Contact Info) Description 03/18/2025 2:30 PM EDT Medication Management [facility] MEDICINE [address] [place] [address] Adilene Medrano PharmD [address] [place] [address] 8[address] 04/26/2025 2:30 PM EDT Office Visit [facility] MEDICINE [address] [place] [address]207 Name, MD Baltazar [address] [place] [address] 14536 documented as of this encounter Visit Diagnoses Not on filedocumented in this encounter Additional Health Concerns Assessment Noted Time PHQ-9 Depression Total Score: 0 10/10/20 22 3:39 PM EST documented as of this encounter Care Teams Bottling Supervisor Relationship Specialty Start Date End Date Name, MD Baltazar [address] [place] [address] 22855 PCP - General Family Medicine 10/03/18 Adilene Medrano PharmD [address] [place] [address] 41295 Pharmacist Internal Medicine 02/15/25 documented as of this encounter
== END 2025-02-19 10:37 | disposition home or self-care (01) ==
LOC: HO.HHCX 10:36
PROVIDERS: Visit Provider Registered Nurse
DX: R10.9 Unspecified abdominal pain (principal)
CPT/HCPCS: 74018

== ENCOUNTER → 2025-02-19 10:38 | Outpatient (BNV) | payer MEDICARE, SELFPAY | PROVIDERS: Visit Provider Radiology Diagnostic Radiology | DX: K59.00 Constipation, unspecified (principal) | CPT/HCPCS: 74018 ==

== ENCOUNTER 2025-03-17 16:46 | Outpatient (REF) | payer MEDICARE, SELFPAY ==
--- OUTSIDE RECORDS SUMMARY | 2025-03-17 16:49 | XMS_ITS | Encounter Summary ---
Author Organization [employer] Address [address] [place] [address] Care Team Providers Care Box Coverer Hand Name Role Phone Name, Baltazar CARO Primary Care Provider [phone] Adilene Medrano PharmD Unavailable [phone] Reason for Visit * Reason Onset Date Comments Created In Error 07/17/2024 Encounter Details Date Type Department Care Team ([facility] st Contact Info) Description 07/17/2024 Telephone [facility] MEDICINE 230 [place], [place] [phone] Name, MD Baltazar 230 [place] [address] Created In Error Social History Tobacco Use [...] Care Team (Late st Contact Info) Description 03/26/2025 2:30 PM EDT Medication Management [facility] MEDICINE [address] [place] [address] Adilene Medrano PharmD [address] [place] [address] 04/26/2025 2:30 PM EDT Office Visit [facility] MEDICINE [address] [place] [address] 56049 Name, MD Baltazar [address] [place] [address] 9[address] documented as of this encounter Visit Diagnoses Not on filedocumented in this encounter Additional Health Concerns Assessment Noted Time PHQ-9 Depression Total Score: 0 01/10/20 24 3:12 PM EDT documented as of this encounter Care Teams Box Coverer Hand Relationship Specialty Start Date End Date Name, MD Baltazar [address] [place] [address] 6[address]73 PCP - General Family Medicine 10/03/18 Adilene Medrano PharmD [address] [place] [address] 7[address]77 Pharmacist Internal Medicine 02/15/25 documented as of this encounter
[2025-03-17 18:10] LABS: Anion Gap 12 (12-20); Blood Urea Nitrogen 26 mg/dL (9-16); Calcium 9.6 mg/dL (8.4-10.2); Carbon Dioxide 27 mmol/L (22-29); Chloride 102 mmol/L (96-108); Creatinine Urine 82.05 mg/dL; Estimated Glomerular Filt Rate 38; Microalbum/Creatinine Ratio Ur 26.8 ug/mg cr (<30); Potassium 4.2 mmol/L (3.3-5.1); Sodium 137 mmol/L (135-145)
[2025-03-17 18:12] LABS: Parathyroid Hormone Intact 102.1 pg/mL (8.7-77.1)
[2025-03-17 18:27] LABS: Vitamin D 25-OH Total 54.7 ng/mL (>30)
[2025-03-19 17:48] LABS: Prot Elec - Albumin 4.6 g/dL (3.8-4.8); Prot Elec - Alpha1 0.2 g/dL (0.2-0.3); Prot Elec - Alpha2 0.6 g/dL (0.5-0.9); Prot Elec - Beta 1 0.4 g/dL (0.4-0.6); Prot Elec - Beta 2 0.3 g/dL (0.2-0.5); Prot Elec - Gamma 0.7 g/dL (0.8-1.7); Prot Elec - Total Protein 6.8 g/dL (6.1-8.1)
== END 2025-03-17 16:47 | disposition home or self-care (01) ==
LOC: HO.HHCL 16:46
PROVIDERS: Visit Provider Internal Medicine Nephrology
DX: N18.30 Chronic kidney disease, stage 3 unspecified (principal)
CPT/HCPCS: 36415; 80051; 82043; 82306; 82310; 82565; 82570; 83970; 84165; 84520

== ENCOUNTER 2025-04-26 08:46 | Outpatient (REF) | payer MEDICARE, SELFPAY ==
--- OUTSIDE RECORDS SUMMARY | 2025-04-26 09:01 | XMS_ITS | Encounter Summary ---
Author Organization [email or web address] Address [address] [place] [address] Care Team Providers Care Auto Mechanic Apprentice Name Role Phone Name, Baltazar CARO Primary Care Provider [phone] Adilene Medrano PharmD Unavailable [phone] Reason for Visit * Reason Onset Date Comments Created In Error 07/17/2024 Encounter Details Date Type Department Care Team ([facility] st Contact Info) Description 07/17/2024 Telephone [facility] MEDICINE 230 [place], [place] [phone] Name, MD Baltazar 230 [place] [address] Created In Error Social History Tobacco Use [...] Care Team (Late st Contact Info) Description 04/26/2025 2:30 PM EDT Office Visit [facility] MEDICINE [address] [place] [address]695 Name, MD Baltazar [address] [place] [address] 05/04/2025 3:30 PM EDT Medication Management [address] [address] Adilene Medrano PharmD [address] [place] [address] 9[address]47 documented as of this encounter Visit Diagnoses Not on filedocumented in this encounter Additional Health Concerns Assessment Noted Time PHQ-9 Depression Total Score: 0 01/10/20 24 3:12 PM EDT documented as of this encounter Care Teams Auto Mechanic Apprentice Relationship Specialty Start Date End Date Name, MD Baltazar [address] [place] [address] [phone] PCP - General Family Medicine 10/03/18 Adilene Medrano, PharmD [address] [place] [address] [phone] Pharmacist Internal Medicine 02/15/25 documented as of this encounter
[2025-04-26 14:34] LABS: Alanine Aminotransferase 28 U/L (0-40); Albumin Level 5.0 g/dL (3.5-5.0); Alkaline Phosphatase 65 U/L (39-117); Anion Gap 13 (12-20); Aspartate Amino Transferase 33 U/L (5-37); Blood Urea Nitrogen 27 mg/dL (9-16); Calcium 9.6 mg/dL (8.4-10.2); Carbon Dioxide 27 mmol/L (22-29); Chloride 107 mmol/L (96-108); Cholesterol 145 mg/dL (<200); Estimated Glomerular Filt Rate 39; HDL Cholesterol 30 mg/dL (>40); Potassium 4.9 mmol/L (3.3-5.1); Sodium 142 mmol/L (135-145); Total Protein 7.3 g/dL (6.5-8.0); Triglycerides 200 mg/dL (<150)
[2025-04-26 18:06] LABS: Prostate Specific Antigen 2.37 ng/mL (<0.05-4.0)
== END 2025-04-26 08:47 | disposition home or self-care (01) ==
LOC: HO.HHCL 08:46
PROVIDERS: Absent Provider Urology; PCP Internal Medicine Geriatric Medicine; Visit Provider Internal Medicine Geriatric Medicine
DX: Z12.5 Encounter for screening for malignant neoplasm of prostate (principal); E11.69 Type 2 diabetes mellitus with other specified complication; N18.31 Chronic kidney disease, stage 3a
CPT/HCPCS: 36415; 80053; 80061; 84153

== ENCOUNTER 2025-04-28 13:08 | Outpatient (AMB) | payer MEDICARE, SELFPAY ==
--- NOTE | 2025-04-28 13:46 | A.OFFVIS_ITS ---
Intake Visit Reasons: PSA/ PET CT f/u Intake Note: Patient is present for PSA/PET-CT F/U Urology Medication:NONE Antibiotic Allergy:NONE Blood Thinner:NONE Well Drill Operator Cable Tool Required: No Allergies No Known Allergies Allergy (Verified 04/28/25 13:47) HPI Comments Details: Jamir Cormier is a very pleasant male. He is a patient of Dr. Hines. He is seen for the following urologic conditions - prostate cancer - 2020 rising PSA therapy intermittent hormones - urinary hesitancy - nephrolithiasis Six-month review PSA continue slow rise 2.4 PET-CT shows no activity in prostate and is otherwise negative Discussed with Jamir and that imaging findings are a little inconsistent however in a good fashion 01/11 <0.1, , 10/13 1.1, 05/14 2.4 Nephrolithiasis Initial diagnosis through [facility] October 2022 Imaging - 12/13 5 mm right proximal stone with mild hydroureteronephrosis - 01/10 renal ultrasound evidence of stones Intervention' - 12/13 right ESWL Therapeutic plan - encourage fluids Prostate cancer: Low-grade, initial therapy brachytherapy 2013 rising PSA 2020 - Current therapy intermittent hormones - Last GnRH 04/12 04/12 Intermittent hormone therapy cycle - final GnRH 04/12 <0.1 T 4, 07/13 <0.1 T2, 12/14 <0.1 Prostate cancer was diagnosed 06/2013. PSA 4.6, volume 40 cc. Stage TI C.. The Kam[place] grade is 3+3. TNM Classification of Malignant Tumours (TNM) T1c. Initial therapy included 11/03 brachytherapy urethral dose 63 chan, followup x-ray with no seed migration., PSA 4.6 Secondary therapy Initial GnRH 05/11, 11/12, 05/12 Recent labs included a PSA (prostate-specific antigen) August 2014 1.5, May 2015 2.6, December 2015 3.7, start finasteride , March 2016 1.7, start bicalutamide , Sep 05 0.6 *stop bicalutamide 02/04 2.1, 06/06 2.1 - not on anything 12/08 , a PSA (prostate-specific antigen) 1.5, 11/08 1.2, 11/09 1.7, 11/10 2.4 on finasteride, 12/11 2.4 finasterdide, 07/11 4.4 off finasteride, 12/12 3.7, 04/11 4.1, 08/11 4.1, 11/12 <0.1, 12/14 <0.1 Recent imaging included 12/08 , a bone scan, with no evidence of metast asis. - 10/10 Bone Scan - repeat imaging no evidence of metastatic disease Erectile dysfunction Severity of the symptoms that is moderate. [facility] Medical History Chronic renal insufficiency Shingles Nocturia Poor urinary stream Benign prostatic hyperplasia with lower urinary tract symptoms Urgency incontinence Erectile dysfunction Prostate cancer Surgical History Hx of inguinal hernia surgery History of lung surgery Social History Patient Tobacco Use Status: Former Tobacco user Review of Systems Const Denies chills and Denies fever(s) Card Reports no additional complaints and Denies syncope Resp Denies cough GI Denies abdominal pain and Denies heartburn Reports as per HPI and Denies change in libido Neuro Denies syncope Psych Denies change in libido Endo Denies change in libido Physical Exam Const General: cooperative, healthy appearing, comfortable and no acute distress Orientation/consciousness: patient oriented x3 HEENT Face and sinus: Yes normal facial exam Mouth: moist mucous membranes Neck Neck: Yes normal visual inspection, Yes full ROM and Yes trachea midline Chest Chest palpation & inspection: normal inspection of the chest Resp Effort & Inspection: normal respiratory effort, able to speak in complete sentences and no respiratory distress GI Inspection: Yes normal to inspection Back/Spine/Pelvis Cervical Spine: normal cervical lordosis Thoracic/Lumbar Spine: thoracic and lumbar spine normal to inspection Skin General skin exam: no rashes or lesions noted Neuro General: patient oriented x3, gait normal, tone normal and moves all extremities Extrem General: Yes normal to inspection and Yes capillary refill normal Assessment & Plan Assessment & Plan (1) Rising PSA following treatment for malignant neoplasm of prostate: Code(s): R97.21 - Rising PSA following treatment for malignant neoplasm of prostate Category: Medical (2) Prostate cancer: Comment: Low-grade prostate cancer initial therapy brachytherapy 2013 rising PSA 2018 Code(s): C61 - Malignant neoplasm of prostate Category: Medical Plan Four month follow-up PSA Dutasteride Orders: Orders Prostate Specific Antigen 4 Months C61 - Malignant neoplasm of prostate AMB Urinalysis Automated Today Z13.9 - Encounter for screening, unspecified Medications: New dutasteride 0.5 mg PO DAILY 90 caps 1RF 90 days C61 - Malignant neoplasm of prostate, N13.8 - Other obstructive and reflux uropathy, N40.1 - Benign prostatic hyperplasia with lower urinary tract symptoms Patient Instructions: This note is constructed using voice recognition software. While every effort has been made to ensure accuracy licensed prosthetist/orthotist errors may have been included. Imaging studies, laboratory and physical exam results were discussed and reviewed in detail. No major barriers to patient understanding were identified. An opportunity to ask questions regarding the treatment plan was provided. All questions were answered. The patient expressed understanding and agreement with the above treatment plan. The patient is aware they should contact our office by phone for worsening of their current condition or the appearance of new urologic symptoms. Compliance is encouraged with any medications and followup testing that is ordered. It is a privilege to participate in the urologic care of your patient. If you have any questions or concerns regarding treatment for the above conditions, or other urologic issues, please do not hesitate to contact me. The office telephone contact is [phone]. Sincerely, Dr Fernie Mendenhall MD, [facility] - Urology Compassionate Specialist Care for the Genitourinary System Coding Level of Care Code Est Pt Level 4 (32610) Diagnoses Rising PSA following treatment for malignant neoplasm of prostate R97.21 Prostate cancer C61
--- OUTSIDE RECORDS SUMMARY | 2025-04-28 13:59 | XMS_ITS | Encounter Summary ---
Author Organization [employer] Address [address] [place] [address] Care Team Providers Care Scrap Separator Name Role Phone Name, Baltazar CARO Primary Care Provider [phone] Adilene Medrano PharmD Unavailable [phone] Reason for Visit * Reason Onset Date Comments Created In Error 07/17/2024 Encounter Details Date Type Department Care Team ([facility] st Contact Info) Description 07/17/2024 Telephone [facility] [address] [place], [place] [phone] Name, MD Baltazar [address] [place] [address] Created In Error Social History Tobacco Use [...] Care Team (Late st Contact Info) Description 05/04/2025 3:30 PM EDT Medication Management [facility] [address] [place] [address] Adilene Medrano PharmD [address] [place] [address] documented as of this encounter Visit Diagnoses Not on filedocumented in this encounter Additional Health Concerns Assessment Noted Time PHQ-9 Depression Total Score: 0 01/10/20 24 3:12 PM EDT documented as of this encounter Care Teams Scrap Separator Relationship Specialty Start Date End Date Name, MD Baltazar [address] [place] [address] PCP - General Family Medicine 10/03/18 Adilene Medrano PharmD [address] [place] [address] [phone] Pharmacist Internal Medicine 02/15/25 documented as of this encounter
== END 2025-04-28 14:52 | disposition home or self-care (01) ==
LOC: HO.HUSH 13:09
PROVIDERS: Visit Provider Urology
DX: R97.21 Rising PSA following treatment for malignant neoplasm of prostate (principal); C61 Malignant neoplasm of prostate; Z13.9 Encounter for screening, unspecified
CPT/HCPCS: 99214

== ENCOUNTER → 2025-04-28 13:08 | Outpatient (BNVA) | payer MEDICARE, SELFPAY | PROVIDERS: Visit Provider Urology | DX: R97.21 Rising PSA following treatment for malignant neoplasm of prostate (principal); C61 Malignant neoplasm of prostate | CPT/HCPCS: 81003; 99212 ==

== ENCOUNTER 2025-08-13 09:51 | Outpatient (REF) | payer MEDICARE, SELFPAY ==
--- OUTSIDE RECORDS SUMMARY | 2025-08-13 11:07 | XMS_ITS | Encounter Summary ---
Author Organization [employer] Address [address] [place] [address] Care Team Providers Care Enterprise Sales Person Name Role Phone Name, Baltazar CARO Primary Care Provider [phone] Adilene Medrano PharmD Unavailable [phone] Reason for Visit * Reason Onset Date Comments Appointment Request 01/04/2025 Encounter Details Date Type Department Care Team (Late st Contact Info) Description 01/04/2025 Telephone [facility] MEDICINE [address] [place], [place] [phone] Name, MD Baltazar [address] [place] [address] Appointment Request Social History Tobacco Use Types [...] emergency and will not be retuning to [facility] till that date. documented in this encounter Plan of Treatment Upcoming Encounters Date Type Department Care Team (Late st Contact Info) Description 09/29/2025 2:15 PM EST Office Visit [facility] MED[facility]INE [address] [place] [phone] NameBaltazar MD [address] [place] [address] 11/04/2025 2:30 PM EST Medication Management [facility]INE [address] [place] [address] Adilene Medrano, PharmD [address] [place] [address] documented as of this encounter Visit Diagnoses Not on filedocumented in this encounter Additional Health Concerns Assessment Noted Time PHQ-9 Depression Total Score: 0 01/10/20 24 3:12 PM EDT documented as of this encounter Care Teams Enterprise Sales Person Relationship Specialty Start Date End Date Baltazar Hines MD [address] [place] [address] PCP - General Family Medicine 10/03/18 Adilene Medrano PharmD [address] [place] [address] Pharmacist Internal Medicine 02/15/25 documented as of this encounter
--- OUTSIDE RECORDS SUMMARY | 2025-08-13 11:07 | XMS_ITS | Encounter Summary ---
Author Organization [employer] Address [address] [place] [address] Care Team Providers Care Field Control Inspector Name Role Phone Name, Baltazar CARO Primary Care Provider [phone] Adilene Medrano PharmD Unavailable [phone] Reason for Visit * Reason Onset Date Comments Created In Error 07/17/2024 Encounter Details Date Type Department Care Team ([facility] st Contact Info) Description 07/17/2024 Telephone [facility] MEDICINE [address] [place], [place] [phone] Name, MD Baltazar [address] [place] [address] Created In Error Social History Tobacco Use [...] Description 09/29/2025 2:15 PM EST Office Visit [address] [address] Name, MD Baltazar [address] [place] [address] 11/04/2025 2:30 PM EST Medication Management [address] [address] Adilene Medrano PharmHaley [address] [place] [address] documented as of this encounter Visit Diagnoses Not on filedocumented in this encounter Additional Health Concerns Assessment Noted Time PHQ-9 Depression Total Score: 0 01/10/20 24 3:12 PM EDT documented as of this encounter Care Teams Field Control Inspector Relationship Specialty Start Date End Date NameBaltazar MD [address] [place] [phone] PCP - General Family Medicine 10/03/18 Adilene Medrano, PharmD [address] [place] [phone] Pharmacist Internal Medicine 4/28/25 documented as of this encounter
--- OUTSIDE RECORDS SUMMARY | 2025-08-13 11:08 | XMS_ITS | Encounter Summary ---
Author Organization [employer] Address [address] [place] [address], [place] [address] Care Team Providers Care Proofer Prepress Name Role Phone Name, Baltazar CARO Primary Care Provider [phone] Adilene Medrano PharmD Unavailable [phone] Reason for Visit * Reason Onset Date Comments Med Refill 07/30/2023 Encounter Details Date Type Department Care Team (Late st Contact Info) Description 07/30/2023 Telephone [facility] MEDICINE [address] [place], [place] [phone] Name, MD Baltazar [address] [place], [place] [phone] Med Refill Social History Tobacco Use Types [...] - 08/02/2023 10:48 AM EDT Tc from [facility] states metFORMIN (Glucophage) 500 MG tablet was supposed to be sent to [facility]/pharmacy [address] [place] [address] * Telephone Encounter - Abbi Harding LPN - 07/31/2023 12:29 PM EDT Please review request I don't see any documentation that medication was increased. * Telephone Encounter - Elissa Templeton - 07/31/2023 12:16 PM EDT TC from [facility] requesting a med refill on metFORMIN (Glucophage) 500 MG tablet pt is using medication1 tab twice a day. Script said 1 tab a day. Please to change directions. Please to be sent to [facility] Pharmacy. PCP DR. Hines documented in this encounter Plan of Treatment Upcoming Encounters Date Type Department Care Team (Late st Contact Info) Description 09/29/2025 2:15 PM EST Office Visit [facility] MED[facility]INE [address] [place] [address] Name, MD Baltazar [address] [place] [address] 11/04/2025 2:30 PM EST Medication Management [facility] [address] [place] [address] Adilene Medrano PharmD [address] [place] [address] documented as of this encounter Visit Diagnoses Not on filedocumented in this encounter Additional Health Concerns Assessment Noted Time PHQ-9 Depression Total Score: 0 10/10/20 22 3:39 PM EST documented as of this encounter Care Teams Proofer Prepress Relationship Specialty Start Date End Date Name, MD Baltazar [address] [place] [address] PCP - General Family Medicine 10/03/18 Adilene Medrano PharmD [address] [place] [address] [phone] Pharmacist Internal Medicine 02/15/25 documented as of this encounter
--- OUTSIDE RECORDS SUMMARY | 2025-08-13 11:08 | XMS_ITS | Encounter Summary ---
Author Organization [employer] Address [address] [place] [address] Care Team Providers Care Evp Global Product Leadership Name Role Phone Name, Baltazar CARO Primary Care Provider Adilene Medrano PharmD Unavailable [phone] Reason for Visit * Reason Onset Date Comments Med Refill 03/04/2024 Encounter Details Date Type Department Care Team (Late st Contact Info) Description 03/04/2024 Refill [facility] MEDICINE [address] [place], [place] [phone] Name, MD Baltazar [address] [place], [place] [phone] Social History Tobacco Use Types Packs/Day Years [...] Description 09/29/2025 2:15 PM EST Office Visit [address] [address] Name, MD Baltazar [address] [place] [address] 11/04/2025 2:30 PM EST Medication Management [address] [address] Adilene Medrano PharmD [address] [place] [address] documented as of this encounter Visit Diagnoses Not on filedocumented in this encounter Additional Health Concerns Assessment Noted Time PHQ-9 Depression Total Score: 0 01/10/20 24 3:12 PM EDT documented as of this encounter Care Teams Evp Global Product Leadership Relationship Specialty Start Date End Date Name, MD Baltazar [address] [place] [address] [phone] PCP - General Family Medicine 10/03/18 Adilene Medrano PharmD [address] [place] [address] [phone] Pharmacist Internal Medicine 02/15/25 documented as of this encounter
--- OUTSIDE RECORDS SUMMARY | 2025-08-13 11:08 | XMS_ITS | Clinical Summary ---
Author Organization [employer] Address [address] [place] [address] [address] [address] Care Team Providers Care Vice President Global Digital Marketing Name Role Phone Name, Baltazar CARO Primary Care Provider [phone] Adilene Medrano PharmD Unavailable [phone] Allergies No known active allergies Medications * This document contains information received from the source organization and may not represent a complete record from that organization. atorvastatin (Lipitor) 20 MG tabletIndicat ions:Type 2 diabetes mellitus with other specified complication, without long-term current use of insulin ([facility]) Take 1 tablet (20 mg) by mouth Once per day. 90 tablet 3 025 Active OneTouch Delica Lancets 33G miscIndicatio ns:Type 2 diabetes mellitus with other specified complication, without long-term current use of insulin (HCC) Use one lancet to check blood sugar by subcutaneous route once per day. DiagnosisType 2 diabetes mellitus with other complication without use of insuliln ([facility]) Code: E11.69 100 each 3 025 Active Multiple Vitamins-Mine rals (CENTRUM SILVER ADULT 50+ PO) Take 1 tablet by mouth Once per day. OTC Active dutasteride (Avodart) 0.5 MG capsule Take 1 capsule by mouth Once per day. 025 Active glucose blood (OneTouch Verio) test stripIndicati ons:Type 2 diabetes mellitus with other specified complication, without long-term current use of insulin (HCC) Use one test strip to check blood sugar by subcutaneous route once per day. DiagnosisType 2 diabetes mellitus with other complication without use of insuliln ([facility]) Code: E11.69 100 strip 3 Active metFORMIN (Glucophage) 500 MG tablet Take 1 tablet (500 mg) by mouth with breakfast and with evening meal. 180 tablet 2 025 2025 Active levocetirizin e (Xyzal) 5 MG tablet Take 1 tablet by mouth Once per day. Active EQ Nasal Allergy 55 MCG/ACT nasal inhaler Administer 1 spray into each nostril Once per day. Active Tirzepatide (Mounjaro) 5 MG/0.5ML solution auto-injector Indications:T ype 2 diabetes mellitus with other specified complication, without long-term current use of insulin ([facility]) Inject 5 mg under the skin 1 (one) time per week. 2 mL 11 025 Active empagliflozin (Jardiance) 10 MGIndications :Type 2 diabetes mellitus with other specified complication, without long-term current use of insulin ([facility]) TAKE 1 TABLET BY MOUTH EVERY DAY 90 tablet 1 025 Active empagliflozin (Jardiance) 10 MGIndications :Type 2 diabetes mellitus with other specified complication, without long-term current use of insulin ([facility]) Take 1 tablet (10 mg) by mouth Once per day. 90 tablet 1 025 2024 Discontinued Mounjaro 5 MG/0.5ML solution auto-injector INJECT 1 PEN SUBCUTANEOUSLY ONCE A WEEK 2 mL 025 2024 Discontinued(R eorder (will not trigger notification to Pharmacy)) Active Problems Problem Noted Date Diagnosed Date Stage 3a chronic kidney disease (CKD) ([facility]) 09/08/2022 Paralysis of diaphragm 09/08/2022 Type 2 diabetes mellitus with other specified co mplication 10/03/2018 Assessment & Plan (09/29/2024 8:10 AM EST): POCT glucose 153 A1C 8.7 Dietary and exercise counseling Patient to continue with prescribed meds-Trulicity to 4.5 weekly & metformin 500 mg bid Referral to technical clerk Obstructive sleep apnea syndrome 10/03/2018 Malignant tumor of prostate ([facility]) 10/03/2018 Encounters * This document contains information received from the source organization and may not represent a complete record from that organization. Date Type Department Care Team Description 08/09/[address] [facility] [address] [place] [address] Name, MD Baltazar Type 2 diabetes mellitus with other specified complication, without long-term current use of insulin ([facility]) 08/05/2025 Travel 08/05/[address] [facility] [address] [place] [address] Name, MD Baltazar Type 2 diabetes mellitus with other specified complication, without long-term current use of insulin ([facility]) 08/04/2025 Travel 07/14/[address] [facility] [address] [place] [address] Navneet Ivey [place] august recalls 07/12/[address] [facility] [address] [place] [address] Name, MD Baltazar 07/08/2025 Travel 07/02/2025 Travel 06/10/[address] [facility] [address] [place] [address] Name, MD Baltazar 06/10/[address] [facility] [address] [place] [address] Name, MD Baltazar 05/18/[address] [facility] [address] [place], [place] [phone] Name, MD Baltazar Type 2 diabetes mellitus with other specified complication, without long-term current use of insulin ([facility]) from Last 3 Months Immunizations Immunization Administration Dates Next Due Influenza High-dose Quadriva lent Preservative Free 07/25/2023,08/08/2021 Influenza injectable quadriv alent preservative free 10/03/2018 Influenza, High Dose Seasona l, Preservative Free 07/03/2025,08/19/2024,08/14/2022,2018 Moderna Covid-19 Vaccine 12+ 01/21/2022, 09/18/2021,01/12/2021,2020 Pfizer [...] Answer Date Recorded Patient Health Questionnaire-9 Score 10 04/26/2025 Patient Health Questionnaire-9 Score 10 04/26/2025 Last PHQ-9: Questionnaire Data Not on file 0 04/26/2025 Housing Stability Answer Date Recorded What is your housing situation today? I have hieu ramos 04/26/[address] you li ve. Do you have problems with any of the following? None of the above 04/26/2025 Food Insecurity Answer Date Recorded Within the past 12 months, y ou worried that your food would run out before you got money to buy more: Never True 04/26/2025 Within the past 12 months,th e food you bought just didn't last and you didn't have enough money to get more: Never True 04/2025 Transportation Answer Date Recorded In the past 12 months, has l ack of transportation kept you from medical appts, meetings, work or from getting things needed for daily living? No 04/26/2025 Utilities Answer Date Recorded In the past 12 months, has t he electric, gas, oil or water company threatened to shut off services in your home? No 04/26/2025 Depression Answer Date Recorded Patient Health Questionnaire-2 Score 2 04/26/2025 Sex and Gender Information Value Date Recorded Sex Assigned at Male 08/20/2022 10:34 AM EDT Legal Sex Male 10:34 AM EDT Gender Identity Male 08/20/2022 10:34 AM EDT Sexual Orientation Straight 08/20/2022 10 :34 AM EDT Last Filed Vital Signs Vital Sign Reading Time Taken Comments Blood Pressure 104/60 07/08/2025 2:50 PM EDT Pulse 91 04/26/2025 2:26 PM EDT Temperature 36.6 C (97.9 F) 04/26/2025 2:26 PM EDT Respiratory Rate 12 04/26/2025 2:26 PM EDT Oxygen Saturation 96% 04/26/2025 2:26 PM EDT Inhaled Oxygen Concentration - - Weight 65.2 kg (143 lb 12.8 oz) 04/26/2025 2:26 PM EDT Height 157.5 cm (5' 2 ) 04/26/2025 2:26 PM EDT Body Mass Index 26.3 04/26/2025 2:26 PM EDT Plan of Treatment Upcoming Encounters Date Type Department Care Team (Late st Contact Info) Description 09/29/2025 2:15 PM EST Office Visit [facility] MEDICINE [address] [place] [phone] Name, MD Baltazar [address] [place] [address] 11/04/2025 2:30 PM EST Medication Management [facility] [address] [place] [address] Adilene Medrano, PharmD [address] [place] [address] Health Maintenance Due Date Last Done Comments CT Colonography 1951 FIT DNA/Cologuard 1950 FIT 1950 FOBT 1950 Sigmoidoscopy 1950 Hepatitis C Screening 1969 Diabetes: Foot Exam 01/09/2025 01/10/2024, 01/10/2024, 01/10/2024, Additional history exists SDOH Screening 01/09/2025 01/10/2024 Colonoscopy 04/19/2025 04/19/2015 Colorectal Cancer Screening 04/19/2025 Diabetes: Urine Protein Screening 08/13/2025 08/13/2024, 04/18/2023, 02/01/2023, Additional history exists Depression Monitoring 10/27/2025 04/26/2025, 025 Diabetes: Hemoglobin A1C 11/05/2025 025, 04/26/2025, 12/01/2024, Additional history exists Alcohol/Substance Use Screening 12/01/2025 12/01/2024 Lipid Panel 04/26/2026 04/26/2025, 07/22, 04/18/2023, Additional history exists Tobacco Screening 04/26/2026 04/26/2025 RSV Patients and Patients Aged 60 years or older (1 - 1-dose 75+ series) 2026 Eye Exam 12/29/2026 12/29/2024 DTaP/Tdap/Td Vaccines (2 - Td or Tdap) 09/09/2033 09/09/2023 Zoster Vaccines Completed 01/09/2022, 08/08/2021 Pneumococcal Vaccine: 50+ Years Completed 09/09/2023 COVID-19 Vaccine Completed 07/03/2025, , 07/25/2023, Additional history exists Influenza Vaccine Completed 07/03/2025, , 07/25/2023, Additional history exists HIB Vaccines Aged Out [...] patient's age to complete this topic Meningococcal B Vaccine Aged Out No l onger eligible based on patient's age to complete [...] Diagnosis Comments POCT GLYCATED HEMOGLOBIN, TOTAL Routine 08/05/2025 4:26 PM EDT Type 2 diabetes mellitus with other specified complication, without long-term current use of insulin ([facility]) LIPID PANEL, STANDARD Routine 04/26/2025 8:51 AM EDT Type 2 diabetes mellitus with other specified complication, without long-term current use of insulin ([facility]) Stage 3a chronic kidney disease (CKD) ([facility]) ALBUMIN, RANDOM URINE W/CREATININE Routine 08/13/2024 9:20 AM EDT Type 2 diabetes mellitus with other specified complication, without long-term current use of insulin (CMS/HCC) Stage 3a chronic kidney disease (CKD) ([facility]) Chronic neck pain COLONOSCOPY Routine 04/19/2015 from Last 3 Months or Most Recently Relevant to Health Maintenance Results * (ABNORMAL) POCT Hgb A1c (08/05/2025 4:26 PM EDT) Hemoglobin A1C 7.5(A) 4.0 - 5.7 % Blood 08/05/2025 4:26 PM EDT us Baltazar Hines MD POINT OF CARE TEST ENTER/EDIT OR DERABLES Final Result * (ABNORMAL) Lipid Panel, Standard (04/26/2025 8:51 AM EDT) Triglycerides 200(H) <150 mg/dL [facility] Comment:Desirable Triglyceri de: less than 150 mg/dLBorderline High Triglyceride 150-199 mg/dLHigh Triglyceride: 200-499 mg/dLVery High Triglyceride: greater than or equal to 5OO mg/dL Cholesterol 145 <200 mg/dL [facility] Comment:Desirable Cholestero l: less than 200 mg/dLBorderline High Cholesterol: 200-239 mg/dLHigh Cholesterol: greater than 239 mg/dL LDL Cholesterol Calculated 75 <100 mg/dL [facility] Comment:Desirable LDL: less than 100 mg/dLNear Optimal/Above Optimal LDL: 110- 129 mg/dLBorderline High LDL: 130-159 mg/dLHigh LDL: 160-189 mg/dLVery High LDL: greater than or equal to 190 mg/dL HDL Cholesterol 30(L) >40 mg/dL [facility] Comment:Desirable HDL: great er than 40 mg/dL Note: This HDL assay may give artificially low results in patients with liver disease. Blood Venous blood specimen / Unknown 04/26/2025 8:51 AM EDT 04/26/2025 11:17 AM EDT Baltazar Hines MD LAB BLOOD ORDERABLES Final Resul t Performing Organization Address [facility] Co de Phone Number [facility] [address] [place] [phone] * Albumin, Random Urine W/Creatinine (08/13/2024 9:20 AM EDT) Creatinine, Urine 137.88 mg/dL [facility] Microalbumin Urine 14.0 mg/L [facility] Microalbum Creatinine Ratio Ur 10.1 <30 ug/mg cr [facility] Comment:Albumin/Creatinine R atio Reference Ranges: Normal: < 30 ug/mg creatinine Microalbuminuria: 30 - 300 ug/mg creatinineClinical Albuminuria: > 300 ug/mg creatinine Urine (Urine, Random) 08/13/2024 9:20 AM EDT 08/13/2024 10:55 AM EDT Baltazar Hines MD LAB URINE ORDERABLES Final Resul t Performing Organization Address [facility] Co de Phone Number [facility] [address] [place] [phone] * Hm Colonoscopy (04/19/2015) Colonoscopy Normal Normal Baltazar Hines MD HEALTH MAINTENANCE Final Result from Last 3 Months or Most Recently Relevant to Health Maintenance Insurance MEDICARE Care Teams Vice President Global Digital Marketing Relationship Specialty Start Date End Date Name, MD Baltazar [address] [place] [phone] PCP - General Family Medicine 10/03/18 Adilene Medrano, TruptiD [address] [place] [phone] Pharmacist Internal Medicine 02/15/25
--- OUTSIDE RECORDS SUMMARY | 2025-08-13 11:08 | XMS_ITS | Encounter Summary ---
Author Organization [employer] Address [address] [place] [address] Care Team Providers Care Computer Graphic Designer Name Role Phone NameBaltazar MD Primary Care Provider [phone] Adilene Medrano PharmD Unavailable [phone] Reason for Visit * Reason Comments Med Refill Encounter Details Date Type Department Care Team (Late Contact Info) Description 07/14/2023 Refill [facility] MEDICINE [address] [place] [address] [phone] Baltazar Hines MD [address] [place] [address] [phone] Social History Tobacco Use Types Packs/Day Years [...] Description 09/29/2025 2:15 PM EST Office Visit [facility] MED[facility]INE [address] [place] [address] [phone] Baltazar Hines MD [address] [place] [phone] 11/04/2025 2:30 PM EST Medication Management [facility] [address] [place] [address] Adilene Medrano PharmD [address] [place] [address] documented as of this encounter Visit Diagnoses Not on filedocumented in this encounter Additional Health Concerns Assessment Noted Time PHQ-9 Depression Total Score: 0 10/10/20 22 3:39 PM EST documented as of this encounter Care Teams Computer Graphic Designer Relationship Specialty Start Date End Date Name, MD Baltazar [address] [place] [address] [phone] PCP - General Family Medicine 10/03/18 Adilene Medrano PharmD [address] [place] [address] [phone] Pharmacist Internal Medicine 02/15/25 documented as of this encounter
--- OUTSIDE RECORDS SUMMARY | 2025-08-13 11:08 | XMS_ITS | Encounter Summary ---
Author Organization [employer] Address [address] [place] [address] Care Team Providers Care Chemistry Department Chair Name Role Phone Name, Baltazar CARO Primary Care Provider [phone] Adilene Medrano PharmD Unavailable [phone] Reason for Visit * Reason Onset Date Comments Med Refill 02/10/2024 Encounter Details Date Type Department Care Team (Late st Contact Info) Description 02/10/2024 Refill [facility] MED[facility]INE [address] [place], [place] [phone] Name, MD Baltazar [address] [place], [place] [phone] Social History Tobacco Use Types Packs/Day Years [...] Description 09/29/2025 2:15 PM EST Office Visit [address] [address] Name, MD Baltazar [address] [place] [address] 11/04/2025 2:30 PM EST Medication Management [address] [address] Adilene Medrano PharmD [address] [place] [phone] documented as of this encounter Visit Diagnoses Not on filedocumented in this encounter Additional Health Concerns Assessment Noted Time PHQ-9 Depression Total Score: 0 01/10/20 24 3:12 PM EDT documented as of this encounter Care Teams Chemistry Department Chair Relationship Specialty Start Date End Date Name, MD Baltazar [address] [place] [address] [phone] PCP - General Family Medicine 10/03/18 Adilene Medrano PharmD [address] [place] [address] [phone] Pharmacist Internal Medicine 02/15/25 documented as of this encounter
--- OUTSIDE RECORDS SUMMARY | 2025-08-13 11:08 | XMS_ITS | Encounter Summary ---
Author Organization [employer] Address [address] [place] [address] Care Team Providers Care Air Lift Operator Name Role Phone Name, Baltazar CARO Primary Care Provider [phone] Adilene Medrano PharmD Unavailable [phone] Reason for Visit * Reason Comments Med Refill Encounter Details Date Type Department Care Team ([facility] st Contact Info) Description 08/09/2025 Refill [facility] MED[facility] [address] [place], [place] [phone] Name, MD Baltazar [address] [place] [address] Type 2 diabetes mellitus with other specified complication, without long-term current use of insulin (HCC) Social History Tobacco Use Types Packs/Day Years [...] Description 09/29/2025 2:15 PM EST Office Visit [address] [address] Baltazar Hines MD [address] [place] [address] 11/04/2025 2:30 PM EST Medication Management [address] [address] Adilene Medrano PharmD [address] [place] [phone] documented as of this encounter Visit Diagnoses Diagnosis Type 2 diabetes mellitus with other specified complication, without long-term current use of insulin (HCC) documented in this encounter Additional Health Concerns Assessment Noted Time PHQ-9 Depression Total Score: 10 025 3:01 PM EDT documented as of this encounter Care Teams Air Lift Operator Relationship Specialty Start Date End Date Baltazar Hines MD [address] [place] [phone] PCP - General Family Medicine 10/03/18 Adilene Medrano PharmD [address] [place] [address] [place] [phone] Pharmacist Internal Medicine 02/15/25 documented as of this encounter
--- OUTSIDE RECORDS SUMMARY | 2025-08-13 11:08 | XMS_ITS | Encounter Summary ---
Author Organization [employer] Address [address] [place] [address] Care Team Providers Care Coal Hauler Operator Name Role Phone Name, Baltazar CARO Primary Care Provider [phone] Adilene Medrano PharmD Unavailable [phone] Reason for Visit * Reason Comments Med Refill Encounter Details Date Type Department Care Team ([facility] st Contact Info) Description 08/05/2025 Refill [facility] [address] [place], [place] [phone] Name, MD Baltazar [address] [place] [address] Type 2 diabetes mellitus with other specified [...] Description 09/29/2025 2:15 PM EST Office Visit [address] [address] Baltazar Hines MD [address] [place] [phone] 11/04/2025 2:30 PM EST Medication Management [address] [address] Adilene Medrano PharmD [address] [place] [address] documented as of this encounter Visit Diagnoses Diagnosis Type 2 diabetes mellitus with other specified complication, without long-term current use of insulin (HCC) documented in this encounter Additional Health Concerns Assessment Noted Time PHQ-9 Depression Total Score: 10 025 3:01 PM EDT documented as of this encounter Care Teams Coal Hauler Operator Relationship Specialty Start Date End Date Baltazar Hines MD [address] [place] [phone] PCP - General Family Medicine 10/03/18 Adilene Medrano PharmD [address] [place] [address] [place] [address] Pharmacist Internal Medicine 02/15/25 documented as of this encounter
--- OUTSIDE RECORDS SUMMARY | 2025-08-13 11:08 | XMS_ITS | Encounter Summary ---
Author Organization [employer] Address [address] [place] [address] Care Team Providers Care Manager Technical Services Name Role Phone Name, aBltazar CARO Primary Care Provider [phone] Adilene Medrano PharmD Unavailable [phone] Reason for Visit * Reason Onset Date Comments Med Refill 12/06/2024 Encounter Details Date Type Department Care Team (Late st Contact Info) Description 12/06/2024 Refill [facility] MED[facility]INE [address] [place], [place] [phone] Name, MD Baltazar [address] [place], [place] [phone] Social History Tobacco Use Types Packs/Day Years [...] Description 09/29/2025 2:15 PM EST Office Visit [address] [address] Name, MD Baltazar [address] [place] [address] 11/04/2025 2:30 PM EST Medication Management [address] [address] Adilene Medrano PharmD [address] [place] [address] documented as of this encounter Visit Diagnoses Not on filedocumented in this encounter Additional Health Concerns Assessment Noted Time PHQ-9 Depression Total Score: 0 01/10/20 24 3:12 PM EDT documented as of this encounter Care Teams Manager Technical Services Relationship Specialty Start Date End Date Name, MD Baltazar [address] [place] [address] [phone] PCP - General Family Medicine 10/03/18 Adilene Medrano PharmD [address] [place] [address] [phone] Pharmacist Internal Medicine 02/15/25 documented as of this encounter
--- OUTSIDE RECORDS SUMMARY | 2025-08-13 11:08 | XMS_ITS | Encounter Summary ---
Author Organization [employer] Address [address] [place] [address] Care Team Providers Care Honeycomb Decapper Name Role Phone Name, Baltazar CARO Primary Care Provider [phone] Adilene Medrano PharmD Unavailable [phone] Reason for Visit * Reason Comments Med Refill Encounter Details Date Type Department Care Team ([facility] st Contact Info) Description 06/10/2025 Refill [facility] [address] [place], [place] [phone] Name, MD Baltazar [address] [place] [address] Social History Tobacco Use Types Packs/Day Years [...] Description 09/29/2025 2:15 PM EST Office Visit [address] [address] Name, MD Baltazar [address] [place] [phone] 11/04/2025 2:30 PM EST Medication Management [address] [address] Adilene Medrano PharmD [address] [place] [phone] documented as of this encounter Visit Diagnoses Not on filedocumented in this encounter Additional Health Concerns Assessment Noted Time PHQ-9 Depression Total Score: 025 3:01 PM EDT documented as of this encounter Care Teams Honeycomb Decapper Relationship Specialty Start Date End Date Name, MD Baltazar [address] [place] [phone] PCP - General Family Medicine 10/03/18 Adilene Medrano PharmD [address] [place] [phone] Pharmacist Internal Medicine 02/15/25 documented as of this encounter
[2025-08-13 11:47] LABS: Prostate Specific Antigen 1.71 ng/mL (<0.05-4.0)
== END 2025-08-13 09:52 | disposition home or self-care (01) ==
LOC: HO.LAB 09:51
PROVIDERS: PCP Internal Medicine Geriatric Medicine; Visit Provider Urology
DX: C61 Malignant neoplasm of prostate (principal); Z12.5 Encounter for screening for malignant neoplasm of prostate
CPT/HCPCS: 36415; 84153

== ENCOUNTER 2025-08-20 15:09 | Outpatient (REF) | payer MEDICARE, SELFPAY ==
--- NOTE | ~2025-08-20 | XR_ITS ---
EXAMINATION: XR CHEST CLINICAL INFORMATION: fall COMPARISON: None available. TECHNIQUE: PA and lateral views. FINDINGS: Elevated right hemidiaphragm. No consolidation, pleural fissure pneumothorax. Cardiomediastinal silhouette size is normal. S-shaped curvature of the thoracolumbar spine. Multilevel spondylosis, thoracolumbar spine. XR/XR chest 2V IMPRESSION: Elevated right hemidiaphragm. Consider paralysis versus paresis, right phrenic nerve. Scoliosis and multilevel spondylosis. Electronically signed by: Nima Marin MD 08/20/2025 03:44 PM EDT
--- OUTSIDE RECORDS SUMMARY | 2025-08-20 13:40 | XMS_ITS | Encounter Summary ---
Author Organization [employer] Address [address] [facility] 7t [place] [address] Care Team Providers Care Registered Nurse Behavioral Health Name Role Phone Name, Baltazar CARO Primary Care Provider [phone] Adilene Medrano PharmD Unavailable [phone] Encounter Details Date Type Department Care Team (Late st Contact Info) Description 08/20/2025 1:40 PM EDT Office Visit [facility] [place] [address] [place] [address] Chest pain, muscular (Primary Dx) Social History Tobacco Use Types [...] Sign Reading Time Taken Comments Blood Pressure 139/83 08/20/2025 2:10 PM EDT Pulse 91 08/20/2025 2:10 PM EDT Temperature 36.7 C (98.1 F) 08/20/2025 2:10 PM EDT Respiratory Rate 22 08/20/2025 2:10 PM EDT Oxygen Saturation 94% 08/20/2025 2:10 PM EDT Inhaled Oxygen Concentration - - Weight 64 kg (141 lb 3.2 oz) 08/20/2025 2:10 PM EDT Height 157.5 cm (5' 2 ) 08/20/2025 2:10 PM EDT Body Mass Index 25.83 08/20/2025 2:10 PM EDT documented in this encounter Plan of Treatment Upcoming Encounters Date Type Department Care Team (Late st Contact Info) Description 09/29/2025 2:15 PM EST Office Visit [facility] MEDICINE [address] [place] [address] Name, MD Baltazar [address] [place] [address] 11/04/2025 2:30 PM EST Medication Management [facility] MED[facility]INE [address] [place] [address] Adilene Medrano, PharmD [address] [place] [address] Scheduled Orders Name Type Priority Associated Diagnoses Orde r Schedule XR Chest 2 Views Imaging Routine Chest pain, muscular Expected: 08/20/2025, Expires: 08/20/2026 documented as of this encounter Visit Diagnoses Diagnosis Chest pain, muscular- Primary documented in this encounter Additional Health Concerns Assessment Noted Time PHQ-9 Depression Total Score: 10 04/26/ 025 3:01 PM EDT documented as of this encounter Care Teams Registered Nurse Behavioral Health Relationship Specialty Start Date End Date Name, MD Baltazar [address] [place] [address] PCP - General Family Medicine 10/03/18 Adilene Medrano PharmD [address] [place] [address] Pharmacist Internal Medicine 02/15/25 documented as of this encounter
--- OUTSIDE RECORDS SUMMARY | 2025-08-20 15:26 | XMS_ITS | Encounter Summary ---
Author Organization [employer] Address [address] [place] [address] Care Team Providers Care Underground Mine Superintendent Name Role Phone Name, Baltazar CARO Primary Care Provider [phone] Adilene Medrano PharmD Unavailable [phone] Reason for Visit * Reason Onset Date Comments Med Refill 02/10/2024 Encounter Details Date Type Department Care Team (Late st Contact Info) Description 02/10/2024 Refill [facility] MEDICINE 230 [place], [place] [phone] Name, MD Baltazar [address] [place], [place] [phone] Social History Tobacco Use Types Packs/Day Years [...] 09/29/2025 2:15 PM EST Office Visit [address] [address] Name, MD Baltazar [address] [place] [address] 11/04/2025 2:30 PM EST Medication Management [address] [address] Adilene Medrano PharmD [address] [place] [address] documented as of this encounter Visit Diagnoses Not on filedocumented in this encounter Additional Health Concerns Assessment Noted Time PHQ-9 Depression Total Score: 0 01/10/20 24 3:12 PM EDT documented as of this encounter Care Teams Underground Mine Superintendent Relationship Specialty Start Date End Date Name, MD Baltazar [address] [place] [address] [phone] PCP - General Family Medicine 10/03/18 Adilene Medrano PharmD [address] [place] [address] [phone] Pharmacist Internal Medicine 02/15/25 documented as of this encounter
--- OUTSIDE RECORDS SUMMARY | 2025-08-20 15:26 | XMS_ITS | Clinical Summary ---
Author Organization [employer] Address [address] [place] [address] [place] [address] Care Team Providers Care Bottom Liquor Attendant Name Role Phone Name, Baltazar CARO Primary Care Provider [phone] Adilene Medrano PharmD Unavailable [phone] Allergies No known active allergies Medications * This document contains information received from the source organization and may not represent a complete record from that organization. atorvastatin (Lipitor) 20 MG tabletIndicat ions:Type 2 diabetes mellitus with other specified complication, without long-term current use of insulin ([facility]) Take 1 tablet (20 mg) by mouth Once per day. 90 tablet 3 025 Active OneTouch Delica Lancets 33G miscIndicatio ns:Type 2 diabetes mellitus with other specified complication, without long-term current use of insulin (HCC) Use one lancet to check blood sugar by subcutaneous route once per day. DiagnosisType 2 diabetes mellitus with other complication without use of insuliln ([facility]) Code: E11.69 100 each 3 025 Active [...] with other complication without use of insuliln ([facility] Code: E11.69 100 strip 3 Active metFORMIN [...] complication, without long-term current use of insulin ([facility]) Inject 5 mg under the skin 1 (one) time per week. 2 mL 11 025 Active empagliflozin (Jardiance) 10 MGIndications :Type 2 diabetes mellitus with other specified complication, without long-term current use of insulin ([facility]) TAKE 1 TABLET BY MOUTH EVERY DAY 90 tablet 1 025 Active empagliflozin (Jardiance) 10 MGIndications :Type 2 diabetes mellitus with other specified complication, without long-term current use of insulin ([facility]) Take 1 tablet (10 mg) by mouth Once per day. 90 tablet 1 025 2024 Discontinued Mounjaro 5 MG/0.5ML solution auto-injector INJECT 1 PEN SUBCUTANEOUSLY ONCE A WEEK 2 mL 025 2024 Discontinued(R eorder (will not trigger notification to Pharmacy)) Active Problems Problem Noted Date Diagnosed Date Stage 3a chronic kidney disease (CKD) ([facility]) 09/08/2022 Paralysis of diaphragm 09/08/2022 Type 2 diabetes mellitus with other specified co mplication 10/03/2018 Assessment & Plan (09/29/2024 8:10 AM EST): POCT glucose 153 A1C 8.7 Dietary and exercise counseling Patient to continue with prescribed meds-Trulicity to 4.5 weekly & metformin 500 mg bid Referral to death claim examiner Obstructive sleep apnea syndrome 10/03/2018 Malignant tumor of prostate ([facility] 10/03/2018 Encounters Date Type Department Care Team Description 08/20/2025 1:40 PM EDT Office Visit [facility] [address] [place] [address] Chest pain, muscular (Primary Dx) 08/20/2025 Travel 08/13/2025 Orders Only GENERIC EXTERNAL DATA DEPARTMENT Provider, Generic External Data 08/09/2025 Refill [facility] [address] [place] [address] Name, MD Baltazar Type 2 diabetes mellitus with other specified complication, without long-term current use of insulin (HCC) 08/05/2025 Travel 08/05/2025 Refill [facility] [address] [place] [address] Name, MD Baltazar Type 2 diabetes mellitus with other specified complication, without long-term current use of insulin (HCC) 08/04/2025 Travel 07/14/2025 Telephone [facility] [address] [place] [address] Navneet [place] august recalls 07/12/2025 Refill [facility] [address] [place] [address] Name, MD Baltazar 07/08/2025 Travel 07/02/2025 Travel 06/10/2025 Refill [facility] [address] [place] [address] NameBaltazar MD 06/10/2025 Refill [facility] [address] [place] [address] Name, MD Baltazar from Last 3 Months Immunizations Immunization Administration [...] Mass Index 25.83 08/20/2025 2:10 PM EDT Plan of Treatment Upcoming Encounters Date Type Department Care Team (Late st Contact Info) Description 09/29/2025 2:15 PM EST Office Visit [facility] [address] [place] [address] Name, MD Baltazar [address] [place] [address] 11/04/2025 2:30 PM EST Medication Management [facility] [address] [place] [address] [phone] Adilene Medrano, PharmD [address] [place], [place] [phone] Health Maintenance Due Date Last Done Comments [...] Date/Time Associated Diagnosis Comments PSA, TOTAL Routine 08/13/2025 10:01 AM EDT POCT GLYCATED HEMOGLOBIN, TOTAL Routine 08/05/2025 4:26 PM EDT Type 2 diabetes mellitus with other specified complication, without long-term current use of insulin ([facility]) LIPID PANEL, STANDARD Routine 04/26/2025 8:51 AM EDT Type 2 diabetes mellitus with other specified complication, without long-term current use of insulin ([facility]) Stage 3a chronic kidney disease (CKD) ([facility]) ALBUMIN, RANDOM URINE W/CREATININE Routine 08/13/2024 9:20 AM EDT Type 2 diabetes mellitus with other specified complication, without long-term current use of insulin ([facility]) Stage 3a chronic kidney disease (CKD) ([facility]) Chronic neck pain HM COLONOSCOPY Routine 04/19/2015 from Last 3 Months or Most Recently Relevant to Health Maintenance Results * PSA,Total (08/13/2025 10:01 AM EDT) Pathologist [facility] Prostate Specific Antigen 1.71 <0.05 - 4.0 ng/mL [facility] Comment:PSA methodology: Emerson Garcia i ChemiluminescentMicroparticle Immunoassay (CMIA) 08/13/2025 10:0 1 AM EDT 08/13/2025 10:01 AM EDT us Generic External Data Provider LAB BLOOD ORDERAB LES Final Result Performing Organization Address City/State/[facility] Co de Phone Number [facility] [address] [place] [phone] * (ABNORMAL) POCT Hgb A1c (08/05/2025 4:26 PM EDT) Pathologist [facility] Hemoglobin A1C 7.5(A) 4.0 - 5.7 % Blood 08/05/2025 4:26 PM EDT us Baltazar Name POINT OF CARE TEST ENTER/EDIT OR DERABLES Final Result * (ABNORMAL) Lipid Panel, Standard (04/26/2025 8:51 AM EDT) Triglycerides 200(H) <150 mg/dL [facility] Comment:Desirable Triglyceri de: less than 150 mg/dLBorderline High Triglyceride 150-199 mg/dLHigh Triglyceride: 200-499 mg/dLVery High Triglyceride: greater than or equal to 5OO mg/dL Cholesterol 145 <200 mg/dL [facility] Comment:Desirable Cholestero l: less than 200 mg/dLBorderline High Cholesterol: 200-239 mg/dLHigh Cholesterol: greater than 239 mg/dL LDL Cholesterol Calculated 75 <100 mg/dL [facility] Comment:Desirable LDL: less than 100 mg/dLNear Optimal/Above Optimal LDL: 110- 129 mg/dLBorderline High LDL: 130-159 mg/dLHigh LDL: 160-189 mg/dLVery High LDL: greater than or equal to 190 mg/dL HDL Cholesterol 30(L) >40 mg/dL [facility] Comment:Desirable HDL: great er than 40 mg/dL Note: This HDL assay may give artificially low results in patients with liver disease. Blood Venous blood specimen / Unknown 04/26/2025 8:51 AM EDT 04/26/2025 11:17 AM EDT us Baltazar Hines MD LAB BLOOD ORDERABLES Final Resul t Performing Organization Address [facility] Co de Phone Number [facility] [address] [place] [phone] * Albumin, Random Urine W/Creatinine (08/13/2024 9:20 AM EDT) Creatinine, Urine 137.88 mg/dL [facility] Microalbumin Urine 14.0 mg/L [facility] Microalbum Creatinine Ratio Ur 10.1 <30 ug/mg cr [facility] Comment:Albumin/Creatinine R atio Reference Ranges: Normal: < 30 ug/mg creatinine Microalbuminuria: 30 - 300 ug/mg creatinineClinical Albuminuria: > 300 ug/mg creatinine Urine (Urine, Random) 08/13/2024 9:20 AM EDT 08/13/2024 10:55 AM EDT us Baltazar Hines MD LAB URINE ORDERABLES Final Resul t Performing Organization Address City/[facility] Co de Phone Number [facility] [address] [place] [phone] * Hm Colonoscopy (04/19/2015) Colonoscopy Normal Normal Baltazar Hines MD HEALTH MAINTENANCE Final Result from Last 3 Months or Most Recently Relevant to Health Maintenance Insurance MEDICARE Care Teams Bottom Liquor Attendant Relationship Specialty Start Date End Date Name, MD Baltazar [address] [place] [phone] PCP - General Family Medicine 10/03/18 Adilene Medrano PharmD [address] [place] [phone] Pharmacist Internal Medicine 02/15/25
--- OUTSIDE RECORDS SUMMARY | 2025-08-20 15:26 | XMS_ITS | Encounter Summary ---
Author Organization [employer] Address [address] [facility] 7t [place] [address] Care Team Providers Care Hi Teacher Name Role Phone Name, Baltazar CARO Primary Care Provider [phone] Adilene Medrano PharmD Unavailable [phone] Encounter Details Date Type Department Care Team (Latest Contact Info) Description 08/20/2025 Travel Social History Tobacco Use Types Packs/Day [...] Description 09/29/2025 2:15 PM EST Office Visit [address] [address] Name, MD Baltazar [address] [place] [address] 11/04/2025 2:30 PM EST Medication Management [address] [address] Adilene Medrano PharmD [address] [place] [address] documented as of this encounter Visit Diagnoses Not on filedocumented in this encounter Additional Health Concerns Assessment Noted Time PHQ-9 Depression Total Score: 10 025 3:01 PM EDT documented as of this encounter Care Teams Hi Teacher Relationship Specialty Start Date End Date Name, MD Baltazar [address] [place] [phone] PCP - General Family Medicine 10/03/18 Adilene Medrano, PharmD [address] [place] [phone] Pharmacist Internal Medicine 02/15/25 documented as of this encounter
--- OUTSIDE RECORDS SUMMARY | 2025-08-20 15:26 | XMS_ITS | Encounter Summary ---
Author Organization [employer] Address [address] [place] [address] Care Team Providers Care Production Control Supervisor Name Role Phone NameBaltazar MD Primary Care Provider [phone] Adilene Medrano PharmD Unavailable [phone] Reason for Visit * Reason Comments Med Refill Encounter Details Date Type Department Care Team (Late Contact Info) Description 07/14/2023 Refill [facility] MEDICINE [address] [place] [address] [phone] Baltazar Hines MD [address] [place] [address] [phone] Social History Tobacco Use Types Packs/Day Years [...] 2:15 PM EST Office Visit [facility] MEDICINE [address] [place] [address] [phone] Baltazar Hines MD [address] [place] [address] 11/04/2025 2:30 PM EST Medication Management [facility] MEDICINE [address] [place] [address] Adilene Medrano PharmD [address] [place] [address] documented as of this encounter Visit Diagnoses Not on filedocumented in this encounter Additional Health Concerns Assessment Noted Time PHQ-9 Depression Total Score: 0 10/10/20 22 3:39 PM EST documented as of this encounter Care Teams Production Control Supervisor Relationship Specialty Start Date End Date Name, MD Baltazar [address] [place] [address] [phone] PCP - General Family Medicine 10/03/18 Adilene Medrano PharmD [address] [place] [address] [phone] Pharmacist Internal Medicine 02/15/25 documented as of this encounter
--- OUTSIDE RECORDS SUMMARY | 2025-08-20 15:26 | XMS_ITS | Encounter Summary ---
Author Organization [employer] Address [address] [place] [address] Care Team Providers Care Tuna Purse Seiner Name Role Phone Name, Baltazar CARO Primary Care Provider [phone] Adilene Medrano PharmD Unavailable [phone] Reason for Visit * Reason Comments Med Refill Encounter Details Date Type Department Care Team ([facility] st Contact Info) Description 06/10/2025 Refill [facility] 230 [place], [place] [phone] Name, MD Baltazar [address] [place] [address] Social History Tobacco Use Types Packs/Day Years [...] Description 09/29/2025 2:15 PM EST Office Visit [address] [address] Name, MD Baltazar [address] [place] [address] 11/04/2025 2:30 PM EST Medication Management [address] [address] Adilene Medrano PharmD [address] [place] [address] documented as of this encounter Visit Diagnoses Not on filedocumented in this encounter Additional Health Concerns Assessment Noted Time PHQ-9 Depression Total Score: 025 3:01 PM EDT documented as of this encounter Care Teams Tuna Purse Seiner Relationship Specialty Start Date End Date Name, MD Baltazar [address] [place] [address] PCP - General Family Medicine 10/03/18 Adilene Medrano PharmD [address] [place] [phone] Pharmacist Internal Medicine 02/15/25 documented as of this encounter
--- OUTSIDE RECORDS SUMMARY | 2025-08-20 15:26 | XMS_ITS | Encounter Summary ---
Author Organization [employer] Address [address] [place] [address] Care Team Providers Care Yarn Bleaching Machine Operator Name Role Phone Name, Baltazar CARO Primary Care Provider [phone] Adilene Medrano PharmD Unavailable [phone] Reason for Visit * Reason Onset Date Comments Appointment Request 01/04/2025 Encounter Details Date Type Department Care Team (Late st Contact Info) Description 01/04/2025 Telephone [facility] MEDICINE [address] [place], [place] [phone] Name, MD Baltazar [address] [place] [address] Appointment Request Social History Tobacco Use Types [...] emergency and will not be retuning to [facility] till that date. documented in this encounter Plan of Treatment Upcoming Encounters Date Type Department Care Team (Late st Contact Info) Description 09/29/2025 2:15 PM EST Office Visit [facility] MEDICINE [address] [place] [address] NameBaltazar MD [address] [place] [address] 11/04/2025 2:30 PM EST Medication Management [facility] MEDICINE [address] [place] [address] Adilene Medrano, PharmD [address] [place] [address] documented as of this encounter Visit Diagnoses Not on filedocumented in this encounter Additional Health Concerns Assessment Noted Time PHQ-9 Depression Total Score: 0 01/10/20 24 3:12 PM EDT documented as of this encounter Care Teams Yarn Bleaching Machine Operator Relationship Specialty Start Date End Date Baltazar Hines MD [address] [place] [address] PCP - General Family Medicine 10/03/18 Adilene Medrano PharmD [address] [place] [address] Pharmacist Internal Medicine 02/15/25 documented as of this encounter
--- OUTSIDE RECORDS SUMMARY | 2025-08-20 15:26 | XMS_ITS | Encounter Summary ---
Author Organization [employer] Address [address] [place] [address] Care Team Providers Care Hob Grinder Name Role Phone Name, Baltazar CARO Primary Care Provider [phone] Adilene Medrano PharmD Unavailable [phone] Reason for Visit * Reason Onset Date Comments Created In Error 07/17/2024 Encounter Details Date Type Department Care Team ([facility] st Contact Info) Description 07/17/2024 Telephone [facility] 230 [place], [place] [phone] Name, MD Balatzar [address] [place] [address] Created In Error Social History Tobacco Use [...] 09/29/2025 2:15 PM EST Office Visit [address] [address] Name, MD Baltazar [address] [place] [address] 11/04/2025 2:30 PM EST Medication Management [address] [address] Adilene Medrano PharmHaley [address] [place] [address] documented as of this encounter Visit Diagnoses Not on filedocumented in this encounter Additional Health Concerns Assessment Noted Time PHQ-9 Depression Total Score: 0 01/10/20 24 3:12 PM EDT documented as of this encounter Care Teams Hob Grinder Relationship Specialty Start Date End Date NameBaltazar MD [address] [place] [address] PCP - General Family Medicine 10/03/18 Adilene Medrano, PharmD [address] [place] [phone] Pharmacist Internal Medicine 4/28/25 documented as of this encounter
--- OUTSIDE RECORDS SUMMARY | 2025-08-20 15:26 | XMS_ITS | Encounter Summary ---
Author Organization [employer] Address [address] [place] [address] [place] [address] Care Team Providers Care System Safety Manager Name Role Phone Name, Baltazar CARO Primary Care Provider [phone] Adilene Medrano PharmD Unavailable [phone] Reason for Visit * Reason Onset Date Comments Med Refill 07/30/2023 Encounter Details Date Type Department Care Team (Late st Contact Info) Description 07/30/2023 Telephone [facility] 230 [place], [place] [phone] Name, MD Baltazar [address] [place], [place] [phone] Med Refill Social History Tobacco Use Types [...] - 08/02/2023 10:48 AM EDT Tc from [facility] states metFORMIN (Glucophage) 500 MG tablet was supposed to be sent to [facility]/pharmacy [address] [place] [address] * Telephone Encounter - Abbi Harding LPN - 07/31/2023 12:29 PM EDT Please review request I don't see any documentation that medication was increased. * Telephone Encounter - Elissa Templeton - 07/31/2023 12:16 PM EDT TC from [facility] requesting a med refill on metFORMIN (Glucophage) 500 MG tablet pt is using medication1 tab twice a day. Script said 1 tab a day. Please to change directions. Please to be sent to [facility] Pharmacy. PCP DR. Hines documented in this encounter Plan of Treatment Upcoming Encounters Date Type Department Care Team (Late st Contact Info) Description 09/29/2025 2:15 PM EST Office Visit [facility] MED[facility] [address] [place] [address] Name, MD Baltazar [address] [place] [address] 11/04/2025 2:30 PM EST Medication Management [facility] [address] [place] [address] Adilene Medrano PharmD [address] [place] [address] documented as of this encounter Visit Diagnoses Not on filedocumented in this encounter Additional Health Concerns Assessment Noted Time PHQ-9 Depression Total Score: 0 10/10/20 22 3:39 PM EST documented as of this encounter Care Teams System Safety Manager Relationship Specialty Start Date End Date Name, MD Baltazar [address] [place] [address] PCP - General Family Medicine 10/03/18 Adilene Medrano PharmD [address] [place] [address] [phone] Pharmacist Internal Medicine 02/15/25 documented as of this encounter
--- OUTSIDE RECORDS SUMMARY | 2025-08-20 15:26 | XMS_ITS | Encounter Summary ---
Author Organization [employer] Address [address] [place] [address] Care Team Providers Care Pilot Captain Name Role Phone Name, Baltazar CARO Primary Care Provider [phone] Adilene Medrano PharmD Unavailable [phone] Reason for Visit * Reason Comments Med Refill Encounter Details Date Type Department Care Team ([facility] st Contact Info) Description 08/05/2025 Refill [facility] [address] [place], [place] [phone] Name, MD Baltazar [address] [place] [address] Type 2 diabetes mellitus with other specified [...] 09/29/2025 2:15 PM EST Office Visit [address] [address] Baltazar Hines MD [address] [place] [address] 11/04/2025 2:30 PM EST Medication Management [address] [address] Adilene Medrano PharmD [address] [place] [address] documented as of this encounter Visit Diagnoses Diagnosis Type 2 diabetes mellitus with other specified complication, without long-term current use of insulin (HCC) documented in this encounter Additional Health Concerns Assessment Noted Time PHQ-9 Depression Total Score: 10 025 3:01 PM EDT documented as of this encounter Care Teams Pilot Captain Relationship Specialty Start Date End Date Baltazar Hines MD [address] [place] [phone] PCP - General Family Medicine 10/03/18 Adilene Medrano PharmD [address] [place] [address] [place] [phone] Pharmacist Internal Medicine 02/15/25 documented as of this encounter
--- OUTSIDE RECORDS SUMMARY | 2025-08-20 15:26 | XMS_ITS | Encounter Summary ---
Author Organization [employer] Address [address] [place] [address] Care Team Providers Care Liquor Blender Name Role Phone Name, Baltazar CARO Primary Care Provider [phone] Adilene Medrano PharmD Unavailable [phone] Reason for Visit * Reason Onset Date Comments Med Refill 03/04/2024 Encounter Details Date Type Department Care Team (Late st Contact Info) Description 03/04/2024 Refill [facility] MED[facility]INE [address] [place], [place] [phone] Name, MD Baltazar [address] [place], [place] [phone] Social History Tobacco Use Types Packs/Day Years [...] Description 09/29/2025 2:15 PM EST Office Visit [address] [address] Name, MD Baltazar [address] [place] [address] 11/04/2025 2:30 PM EST Medication Management [address] [address] Adilene Medrano PharmD [address] [place] [address] documented as of this encounter Visit Diagnoses Not on filedocumented in this encounter Additional Health Concerns Assessment Noted Time PHQ-9 Depression Total Score: 0 01/10/20 24 3:12 PM EDT documented as of this encounter Care Teams Liquor Blender Relationship Specialty Start Date End Date Name, MD Baltazar [address] [place] [address] [phone] PCP - General Family Medicine 10/03/18 Adilene Medrano PharmD [address] [place] [address] [phone] Pharmacist Internal Medicine 02/15/25 documented as of this encounter
--- OUTSIDE RECORDS SUMMARY | 2025-08-20 15:26 | XMS_ITS | Encounter Summary ---
Author Organization [employer] Address [address] [place] [address] Care Team Providers Care Basic Combatant Swimmer Name Role Phone Name, Baltazar CARO Primary Care Provider [phone] Adilene Medrano PharmD Unavailable [phone] Reason for Visit * Reason Onset Date Comments Med Refill 12/06/2024 Encounter Details Date Type Department Care Team (Late st Contact Info) Description 12/06/2024 Refill [facility] [address] [place], [place] [phone] Name, MD Baltazar [address] [place], [place] [phone] Social History Tobacco Use Types Packs/Day Years [...] 09/29/2025 2:15 PM EST Office Visit [address] [address] Name, MD Baltazar [address] [place] [address] 11/04/2025 2:30 PM EST Medication Management [address] [address] Adilene Medrano PharmD [address] [place] [address] documented as of this encounter Visit Diagnoses Not on filedocumented in this encounter Additional Health Concerns Assessment Noted Time PHQ-9 Depression Total Score: 0 01/10/20 24 3:12 PM EDT documented as of this encounter Care Teams Basic Combatant Swimmer Relationship Specialty Start Date End Date Name, MD Baltazar [address] [place] [address] [phone] PCP - General Family Medicine 10/03/18 Adilene Medrano PharmD [address] [place] [address] [phone] Pharmacist Internal Medicine 02/15/25 documented as of this encounter
== END 2025-08-20 15:10 | disposition home or self-care (01) ==
LOC: HO.HHCX 15:09
PROVIDERS: PCP Internal Medicine Geriatric Medicine; Visit Provider Nurse Practitioner
DX: R07.89 Other chest pain (principal)
CPT/HCPCS: 71046

== ENCOUNTER → 2025-08-20 15:14 | Outpatient (BNV) | payer MEDICARE, SELFPAY | PROVIDERS: PCP Internal Medicine Geriatric Medicine; Visit Provider Radiology Diagnostic Radiology | DX: J98.6 Disorders of diaphragm (principal) | CPT/HCPCS: 71046 ==

== ENCOUNTER 2025-08-27 12:26 | Outpatient (AMB) | payer MEDICARE, SELFPAY ==
--- NOTE | 2025-08-27 12:48 | A.OFFVIS_ITS ---
Intake Visit Reasons: 4M PSA/PVR/Med Review Intake Note: Patient is Present for Follow Up Urology Medication: Dutasteride Antibiotic Allergies: None Blood Thinners: None PVR: 19ml Drain Technician Required: No Accompanied by: Self / Same As Patient Allergies No Known Allergies Allergy (Verified 08/27/25 12:51) HPI Comments Details: Jamir Cormier is a very pleasant male. He is a patient of Dr. Hines. He is seen for the following urologic conditions - prostate cancer - 2020 rising PSA therapy intermittent hormones - urinary hesitancy - nephrolithiasis Four-month follow-up PSA downward little bit on dutasteride Continue to follow PET-CT shows no activity in prostate and is otherwise negative Discussed with Jamir and that imaging findings are a little inconsistent however in a good fashion 01/11 <0.1, , 10/13 1.1, 05/14 2.4, 08/14 1.7 Nephrolithiasis Initial diagnosis through [facility] October 2022 Imaging - 12/13 5 mm right proximal stone with mild hydroureteronephrosis - 01/10 renal ultrasound evidence of stones Intervention' - 12/13 right ESWL Therapeutic plan - encourage fluids Prostate cancer: Low-grade, initial therapy brachytherapy 2013 rising PSA 2020 - Current therapy intermittent hormones - Last GnRH 04/12 04/12 Intermittent hormone therapy cycle - final GnRH 04/12 <0.1 T 4, 07/13 <0.1 T2, 12/14 <0.1 Prostate cancer was diagnosed 06/2013. PSA 4.6, volume 40 cc. Stage TI C.. The Kamilla grade is 3+3. TNM Classification of Malignant Tumours (TNM) T1c. Initial therapy included 11/03 brachytherapy urethral dose 63 chan, followup x-ray with no seed migration., PSA 4.6 Secondary therapy Initial GnRH 05/11, 11/12, 05/12 Recent labs included a PSA (prostate-specific antigen) August 2014 1.5, May 2015 2.6, December 2015 3.7, start finasteride , March 2016 1.7, start bicalutamide , Sep 05 0.6 *stop bicalutamide 02/04 2.1, 06/06 2.1 - not on anything 12/08 , a PSA (prostate-specific antigen) 1.5, 11/08 1.2, 1/20 1.7, 11/10 2.4 on finasteride, 12/11 2.4 finasterdide, 07/11 4.4 off finasteride, 12/12 3.7, 04/11 4.1, 08/11 4.1, 11/12 <0.1, 12/14 <0.1 Recent imaging included 12/08 , a bone scan, with no evidence of metastasis. - 10/10 Bone Scan - repeat imaging no evidence of metastatic disease Erectile dysfunction Severity of the symptoms that is moderate. [facility], [facility] Medical History Chronic renal insufficiency Shingles Nocturia Poor urinary stream Benign prostatic hyperplasia with lower urinary tract symptoms Urgency incontinence Erectile dysfunction Prostate cancer Surgical History Hx of inguinal hernia surgery History of lung surgery Social History Patient Tobacco Use Status: Former Tobacco user Review of Systems Const Denies chills and Denies fever(s) Card Reports no additional complaints and Denies syncope Resp Denies cough GI Denies abdominal pain and Denies heartburn Reports as per HPI and Denies change in libido Neuro Denies syncope Psych Denies change in libido Endo Denies change in libido Physical Exam Const General: cooperative, healthy appearing, comfortable and no acute distress Orientation/consciousness: patient oriented x3 HEENT Face and sinus: Yes normal facial exam Mouth: moist mucous membranes Neck Neck: Yes normal visual inspection, Yes full ROM and Yes trachea midline Chest Chest palpation & inspection: normal inspection of the chest Resp Effort & Inspection: normal respiratory effort, able to speak in complete sentences and no respiratory distress GI Inspection: Yes normal to inspection Back/Spine/Pelvis Cervical Spine: normal cervical lordosis Thoracic/Lumbar Spine: thoracic and lumbar spine normal to inspection Skin General skin exam: no rashes or lesions noted Neuro General: patient oriented x3, gait normal, tone normal and moves all extremities Extrem General: Yes normal to inspection and Yes capillary refill normal Office Procedures Post Void Residual Post Residual Void Post Void Residual (PVR): 19 88473-[id number] Void Residual by ultrasound Assessment & Plan Assessment & Plan (1) Prostate cancer: Comment: Low-grade prostate cancer initial therapy brachytherapy 2013 rising PSA 2019 Code(s): C61 - Malignant neoplasm of prostate Category: Medical (2) Weak urinary stream: Code(s): R39.12 - Poor urinary stream Category: Medical Plan Six-month follow-up repeat PSA Orders: Orders AMB Post Void Residual by ultrasound Today R39.11 - Hesitancy of micturition Prostate Specific Antigen 6 Months C61 - Malignant neoplasm of prostate Patient Instructions: This note is constructed using voice recognition software. While every effort has been made to ensure accuracy glass bulb machine adjuster errors may have been included. Imaging studies, laboratory and physical exam results were discussed and reviewed in detail. No major barriers to patient understanding were identified. An opportunity to ask questions regarding the treatment plan was provided. All questions were answered. The patient expressed understanding and agreement with the above treatment plan. The patient is aware they should contact our office by phone for worsening of their current condition or the appearance of new urologic symptoms. Compliance is encouraged with any medications and followup testing that is ordered. It is a privilege to participate in the urologic care of your patient. If you have any questions or concerns regarding treatment for the above conditions, or other urologic issues, please do not hesitate to contact me. The office telephone contact is [phone]. Sincerely, Dr Fernie Mendenhall MD, [facility] - Urology Compassionate Specialist Care for the Genitourinary System Coding Level of Care Code Est Pt Level 3 (06650) Complex EM visit Add On G2211 Diagnoses Prostate cancer C61 Weak urinary stream R39.12 CPT Codes Post Residual Void - PVR CPT Code: 17139-Pomi Void Residual by ultrasound ([id number])
--- OUTSIDE RECORDS SUMMARY | 2025-08-27 14:39 | XMS_ITS | Encounter Summary ---
Author Organization [employer] Address [address] [facility] [address], [place] [address] Care Team Providers Care Records Supervisor Name Role Phone Name, Baltazar CARO Primary Care Provider [phone] Adilene Medrano PharmD Unavailable [phone] Reason for Visit * Reason Onset Date Comments Med Refill 07/30/2023 Encounter Details Date Type Department Care Team (Late st Contact Info) Description 07/30/2023 Telephone [facility]INE [address] [place], [place] [phone] Name, MD Baltazar [address] [place], [place] [phone] Med Refill Social History Tobacco Use Types [...] tablet was supposed to be sent to [facility]/pharmacy [address] [place] [address] * Telephone Encounter - Abbi Harding LPN - 07/31/2023 12:29 PM EDT Please review request I don't see any documentation that medication was increased. * Telephone Encounter - Elissa Templeton - 07/31/2023 12:16 PM EDT TC from [facility] requesting a med refill on metFORMIN (Glucophage) 500 MG tablet pt is using medication1 tab twice a day. Script said 1 tab a day. Please to change directions. Please to be sent to [facility]. PCP DR. Hines documented in this encounter Plan of Treatment Upcoming Encounters Date Type Department Care Team (Late st Contact Info) Description 09/29/2025 2:15 PM EST Office Visit [facility] [address] [place] [address] Name, MD Baltazar [address] [place] [address] 11/04/2025 2:30 PM EST Medication Management [facility] [address] [place] [address] Adilene Medrano PharmD [address] [place] [address] documented as of this encounter Visit Diagnoses Not on filedocumented in this encounter Additional Health Concerns Assessment Noted Time PHQ-9 Depression Total Score: 0 10/10/20 22 3:39 PM EST documented as of this encounter Care Teams Records Supervisor Relationship Specialty Start Date End Date Name, MD Baltazar [address] [place] [address] PCP - General Family Medicine 10/03/18 Adilene Medrano PharmD [address] [place] [address] [phone] Pharmacist Internal Medicine 02/15/25 documented as of this encounter
--- OUTSIDE RECORDS SUMMARY | 2025-08-27 14:39 | XMS_ITS | Encounter Summary ---
Author Organization [employer] Address [address] [place] [address] Care Team Providers Care Catalog Specialist Name Role Phone Name, Baltazar CARO Primary Care Provider [phone] Adilene Medrano PharmD Unavailable [phone] Reason for Visit * Reason Onset Date Comments Appointment Request 01/04/2025 Encounter Details Date Type Department Care Team (Late st Contact Info) Description 01/04/2025 Telephone [facility]INE [address] [place], [place] [phone] Name, MD Baltazar [address] [place] [address] Appointment Request Social History Tobacco Use Types [...] emergency and will not be retuning to [facility] till that date. documented in this encounter Plan of Treatment Upcoming Encounters Date Type Department Care Team (Late st Contact Info) Description 09/29/2025 2:15 PM EST Office Visit [facility] MEDICINE [address] [place] [phone] NameBaltazar MD [address] [place] [address] 11/04/2025 2:30 PM EST Medication Management [facility]INE [address] [place] [address] Adilene Medrano, PharmD [address] [place] [address] documented as of this encounter Visit Diagnoses Not on filedocumented in this encounter Additional Health Concerns Assessment Noted Time PHQ-9 Depression Total Score: 0 01/10/20 24 3:12 PM EDT documented as of this encounter Care Teams Catalog Specialist Relationship Specialty Start Date End Date Baltazar Hines MD [address] [place] [address] PCP - General Family Medicine 10/03/18 Adilene Medrano PharmD [address] [place] [address] Pharmacist Internal Medicine 02/15/25 documented as of this encounter
--- OUTSIDE RECORDS SUMMARY | 2025-08-27 14:39 | XMS_ITS | Clinical Summary ---
Author Organization [employer] Address [address] [place] [address] [address], [place] [address] Care Team Providers Care Rocket Propellant Plant Supervisor Name Role Phone Name, Baltazar CARO Primary Care Provider [phone] Adilene Medrano PharmD Unavailable [phone] Allergies No known active allergies Medications * This document contains information received from the source organization and may not represent a complete record from that organization. atorvastatin (Lipitor) 20 MG tabletIndicat ions:Type 2 diabetes mellitus with other specified complication, without long-term current use of insulin ([facility]) Take 1 tablet (20 mg) by mouth Once per day. 90 tablet 3 025 Active OneTouch Delica Lancets 33G miscIndicatio ns:Type 2 diabetes mellitus with other specified complication, without long-term current use of insulin (HCC) Use one lancet to check blood sugar by subcutaneous route once per day. DiagnosisType 2 diabetes mellitus with other complication without use of insuliln ([facility]) Code: E11.69 100 each 3 025 [...] with other complication without use of insuliln ([facility]) Code: E11.69 100 strip 3 Active metFORMIN [...] complication, without long-term current use of insulin ([facility]) Inject 5 mg under the skin 1 (one) time per week. 2 mL 11 Active empagliflozin (Jardiance) 10 MGIndications :Type 2 diabetes mellitus with other specified complication, without long-term current use of insulin ([facility]) TAKE 1 TABLET BY MOUTH EVERY DAY 90 tablet 1 Active Diclofenac Sodium 1 % gelIndication s:Chest pain, muscular Apply 1 g topically if needed in the morning, at noon, and at bedtime (pain). 100 g 2024 Active lidocaine (Lidoderm) 5 % patchIndicati ons:Chest pain, muscular Apply 1 patch topically Once per day. Remove & discard patch within 12 hours or as directed by MD. 30 patch 1 Active acetaminophen (Tylenol Extra Strength) 500 MG tabletIndicat ions:Chest pain, muscular Take 2 tablets (1,000 mg) by mouth every 6 (six) hours if needed for moderate pain. 120 tablet 025 2024 Active empagliflozin (Jardiance) 10 MGIndications :Type 2 diabetes mellitus with other specified complication, without long-term current use of insulin ([facility]) Take 1 tablet (10 mg) by mouth Once per day. 90 tablet 1 025 2024 Discontinued Mounjaro 5 MG/0.5ML solution auto-injector INJECT 1 PEN SUBCUTANEOUSLY ONCE A WEEK 2 mL 025 2024 Discontinued(R eorder (will not trigger notification to Pharmacy)) Active Problems Problem Noted Date Diagnosed Date Stage 3a chronic kidney disease (CKD) ([facility]) 09/08/2022 Paralysis of diaphragm 09/08/2022 Type 2 diabetes mellitus with other specified co mplication 10/03/2018 Assessment & Plan (09/29/2024 8:10 AM EST): POCT glucose 153 A1C 8.7 Dietary and exercise counseling Patient to continue with prescribed meds-Trulicity to 4.5 weekly & metformin 500 mg bid Referral to bull rider Obstructive sleep apnea syndrome 10/03/2018 Malignant tumor of prostate ([facility]) 10/03/2018 Encounters Date Type Department Care Team Description 08/25/2025 Telephone [facility] [place] [address] Baltazar Hines MD Prior Authorization (Lidocaine 5% patches) 08/20/2025 1:40 PM EDT Office Visit [facility] [address] [place] [address] Roro Mckeon NP Chest pain, muscular (Primary Dx) 08/20/2025 Results Follow-Up [facility] [address] [place] [address] Roro Mckeon NP XR Chest 2 Views 08/20/2025 Travel 08/13/2025 Orders Only GENERIC EXTERNAL DATA DEPARTMENT Provider, Generic External Data 08/09/2025 Refill [facility] [place] [address] Baltazar Hines MD Type 2 diabetes mellitus with other specified complication, without long-term current use of insulin ([facility]) 08/05/2025 Travel 08/05/2025 Refill [facility] [address] [place] [address] Baltazar Hines MD Type 2 diabetes mellitus with other specified complication, without long-term current use of insulin ([facility]) 08/04/2025 Travel 07/14/2025 Telephone [facility] [address] [place] [address] Navneet Ivey MA august recalls 07/12/2025 Refill [facility] [address] [place] [address] Name, MD Baltazar 07/08/2025 Travel 07/02/2025 Travel 06/10/2025 Refill [facility] [address] [place] [address] Name, MD Baltazar 06/10/2025 Refill [facility] [address] [place] [address] Name, MD Baltazar from Last 3 Months [...] Description 09/29/2025 2:15 PM EST Office Visit [facility] [address] [place] [address] Name, MD Baltazar [address] [place] [address] 11/04/2025 2:30 PM EST Medication Management [facility] [address] [place] [address] [phone] Adilene Medrano, PharmD [address] [place] [phone] Health Maintenance Due Date Last Done Comments [...] 07/22, 04/18/2023, Additional history exists Tobacco Screening 08/20/2026 08/20/2025 RSV Patients and Patients Aged 60 years [...] Name Priority Date/Time Associated Diagnosis Comments XR CHEST 2 VIEWS Routine 08/20/2025 3:37 PM EDT Chest pain, muscular PSA, TOTAL Routine 08/13/2025 10:01 AM EDT POCT GLYCATED HEMOGLOBIN, TOTAL Routine 08/05/2025 4:26 PM EDT Type 2 diabetes mellitus with other specified complication, without long-term current use of insulin ([facility]) LIPID PANEL, STANDARD Routine 04/26/2025 8:51 AM EDT Type 2 diabetes mellitus with other specified complication, without long-term current use of insulin (CMS/HCC) Stage 3a chronic kidney disease (CKD) (CMS/HCC) ALBUMIN, RANDOM URINE W/CREATININE Routine 08/13/2024 9:20 AM EDT Type 2 diabetes mellitus with other specified complication, without long-term current use of insulin (CMS/HCC) Stage 3a chronic kidney disease (CKD) (CMS/HCC) Chronic neck pain HM COLONOSCOPY Routine 04/19/2015 from Last 3 Months or Most Recently Relevant to Health Maintenance Results * XR Chest 2 Views (08/20/2025 3:37 PM EDT) Anatomical Region Laterality Modality Chest Radiographic Starla ging 08/20/2025 3:37 PM EDT Narrative 08/20/2025 3:47 PM EDT [address] [address] XRay Report Signed Patient: Jamir Jimenez MR#: [id number] : 1950 Acct:[id number] Age/Sex: 74 / M ADM Date: 08/20/25 Loc: [facility] Attending Dr: Roro Mckeon Ordering Physician: Roro Mckeon Date of Service: 08/20/25 Procedure(s): XR chest 2V Accession Number(s): [id number] cc: Roro Mckeon; Name,Baltazar CARO Reason for Exam: fall EXAMINATION: XR CHEST CLINICAL INFORMATION: fall COMPARISON: None available. TECHNIQUE: PA and lateral views. FINDINGS: Elevated right hemidiaphragm. No consolidation, pleural fissure pneumothorax. Cardiomediastinal silhouette size is normal. S-shaped curvature of the thoracolumbar spine. Multilevel spondylosis, thoracolumbar spine. XR/XR chest 2V IMPRESSION: Elevated right hemidiaphragm. Consider paralysis versus paresis, right phrenic nerve. Scoliosis and multilevel spondylosis. Electronically signed by: Nima Marin MD 08/20/2025 03:44 PM EDT Dictated By: Nima Merino MD Signed By: <Electronically signed by Nima Vences MD in OV> 08/20/25 1544 DD/ 1537 TD/TT: 08/20/25 1542 Rocket Engine Component Mechanic: Procedure Note Donotuseinterpreter, Image - 08/20/2025 [place] [address] XRay Report Signed Patient: Earlene Jimenez#: [id number] : 1950cct:[id number] Age/Sex: 74 / MADM Date: 08/20/25 Loc: [facility] Attending Dr: Roro Mckeon Ordering Physician: Roro Mckeon Date of Service: 08/20/25 Procedure(s): XR chest 2V Accession Number(s): [id number] cc: Roro Mckeon; Name,Baltazar CARO Reason for Exam: fall EXAMINATION: XR CHEST CLINICAL INFORMATION: fall COMPARISON: None available. TECHNIQUE: PA and lateral views. FINDINGS: Elevated right hemidiaphragm. No consolidation, pleural fissure pneumothorax. Cardiomediastinal silhouette size is normal. S-shaped curvature of the thoracolumbar spine. Multilevel spondylosis, thoracolumbar spine. XR/XR chest 2V IMPRESSION: Elevated right hemidiaphragm. Consider paralysis versus paresis, right phrenic nerve. Scoliosis and multilevel spondylosis. Electronically signed by: Nima Marin MD 08/20/2025 03:44 PM EDT RP Dictated By: Nima Merino MD Signed By: <Electronically signed by Nima Vences MDin OV> 08/20/25 1544 DD/ 1537 TD/TT: 08/20/25 154 Rocket Engine Component Mechanic: us Roro Mckeon NP IMG XR PROCEDURES Final Result * PSA,Total (08/13/2025 10:01 AM EDT) Prostate Specific Antigen 1.71 <0.05 - 4.0 ng/mL [facility] Comment:PSA methodology: Abb brock Alilewisty i ChemiluminescentMicroparticle Immunoassay (CMIA) 08/13/2025 10:0 1 AM EDT 08/13/2025 10:01 AM EDT us Generic External Data Provider LAB BLOOD ORDERAB LES Final Result [facility] [address] [place] [address] [phone] * (ABNORMAL) POCT Hgb A1c (08/05/2025 4:26 PM EDT) Hemoglobin A1C 7.5(A) 4.0 - 5.7 % Blood 08/05/2025 4:26 PM EDT us Baltazar Hines MD POINT OF CARE TEST ENTER/EDIT OR DERABLES Final Result * (ABNORMAL) Lipid Panel, Standard (04/26/2025 8:51 AM EDT) Triglycerides 200(H) <150 mg/dL [facility] Comment:Desirable Triglyceri de: less than 150 mg/dLBorderline High Triglyceride 150-199 mg/dLHigh Triglyceride: 200-499 mg/dLVery High Triglyceride: greater than or equal to 5OO mg/dL Cholesterol 145 <200 mg/dL [facility] Comment:Desirable Cholestero l: less than 200 mg/dLBorderline High Cholesterol: 200-239 mg/dLHigh Cholesterol: greater than 239 mg/dL LDL Cholesterol Calculated 75 <100 mg/dL [facility] Comment:Desirable LDL: less than 100 mg/dLNear Optimal/Above Optimal LDL: 110- 129 mg/dLBorderline High LDL: 130-159 mg/dLHigh LDL: 160-189 mg/dLVery High LDL: greater than or equal to 190 mg/dL HDL Cholesterol 30(L) >40 mg/dL [facility] Comment:Desirable HDL: great er than 40 mg/dL Note: This HDL assay may give artificially low results in patients with liver disease. Blood Venous blood specimen / Unknown 04/26/2025 8:51 AM EDT 04/26/2025 11:17 AM EDT us Baltazar Name LAB BLOOD ORDERABLES Final Resul t [facility] [address] [place] [address] [phone] * Albumin, Random Urine W/Creatinine (08/13/2024 9:20 AM EDT) Creatinine, Urine 137.88 mg/dL [facility] Microalbumin Urine 14.0 mg/L [facility] Microalbum Creatinine Ratio Ur 10.1 <30 ug/mg cr [facility] Comment:Albumin/Creatinine R atio Reference Ranges: Normal: < 30 ug/mg creatinine Microalbuminuria: 30 - 300 ug/mg creatinineClinical Albuminuria: > 300 ug/mg creatinine Urine (Urine, Random) 08/13/2024 9:20 AM EDT 08/13/2024 10:55 AM EDT Baltazar Hines MD LAB URINE ORDERABLES Final Resul t [facility] [address] [place] [address] [phone] * Hm Colonoscopy (04/19/2015) Colonoscopy Normal Normal Baltazar Hines MD HEALTH MAINTENANCE Final Result from Last 3 Months or Most Recently Relevant to Health Maintenance Insurance MEDICARE Care Teams Rocket Propellant Plant Supervisor Relationship Specialty Start Date End Date Name, MD Baltazar [address] [place] [address] PCP - General Family Medicine 10/03/18 Adilene Medrano, TruptiD [address] [place] [address] Pharmacist Internal Medicine 02/15/25
--- OUTSIDE RECORDS SUMMARY | 2025-08-27 14:39 | XMS_ITS | Encounter Summary ---
Author Organization [email or web address] Address [address] [place] [address] Care Team Providers Care Personal Lines Insurance Advisor Name Role Phone Name, Baltazar CRAO Primary Care Provider [phone] Adilene Medrano PharmD Unavailable [phone] Reason for Visit * Reason Onset Date Comments Med Refill 02/10/2024 Encounter Details Date Type Department Care Team (Late st Contact Info) Description 02/10/2024 Refill [facility] [address] [place], [place] [phone] Name, MD Baltazar [address] [place], [place] [phone] Social History Tobacco Use Types Packs/Day Years [...] Description 09/29/2025 2:15 PM EST Office Visit [address] [address] Name, MD Baltazar [address] [place] [address] 11/04/2025 2:30 PM EST Medication Management [address] [address] Adilene Medrano PharmD [address] [place] [address] documented as of this encounter Visit Diagnoses Not on filedocumented in this encounter Additional Health Concerns Assessment Noted Time PHQ-9 Depression Total Score: 0 01/10/20 24 3:12 PM EDT documented as of this encounter Care Teams Personal Lines Insurance Advisor Relationship Specialty Start Date End Date Name, MD Baltazar [address] [place] [address] [phone] PCP - General Family Medicine 10/03/18 Adilene Medrano PharmD [address] [place] [address] [phone] Pharmacist Internal Medicine 02/15/25 documented as of this encounter
--- OUTSIDE RECORDS SUMMARY | 2025-08-27 14:39 | XMS_ITS | Encounter Summary ---
Author Organization [employer] Address [address] [place] [address] Care Team Providers Care Hospice Social Worker Name Role Phone Name, Baltazar CARO Primary Care Provider [phone] Adilene Medrano PharmD Unavailable [phone] Reason for Visit * Reason Onset Date Comments Prior Authorization 08/25/2025 Lidocaine 5% patches Encounter Details Date Type Department Care Team ([facility] st Contact Info) Description 08/25/2025 Telephone [facility] [address] [place], [place] [phone] Name, MD Baltazar [address] [place] [address] Prior Authorization (Lidocaine 5% patches) Social History Tobacco Use Types Packs/Day Years [...] encounter Miscellaneous Notes * Telephone Encounter - Monserrat Coley - 08/25/2025 3:18 PM EST [place] initiated on Covermymeds for Lidocaine patches. Approval/denial pending. Garcia: [id number] documented in this encounter Plan of Treatment Upcoming Encounters Date Type Department Care Team (Late st Contact Info) Description 09/29/2025 2:15 PM EST Office Visit [facility] [address] [place] [address] NameBaltazar MD [address] [place] [address] 11/04/2025 2:30 PM EST Medication Management [facility] [address] [place] [address] Adilene Medrano, PharmD [address] [place] [address] documented as of this encounter Visit Diagnoses Not on filedocumented in this encounter Additional Health Concerns Assessment Noted Time PHQ-9 Depression Total Score: 10 025 3:01 PM EDT documented as of this encounter Care Teams Hospice Social Worker Relationship Specialty Start Date End Date Baltazar Hines MD [address] [place] [address] PCP - General Family Medicine 10/03/18 Adilene Medrano PharmD [address] [place] [address] Pharmacist Internal Medicine 02/15/25 documented as of this encounter
--- OUTSIDE RECORDS SUMMARY | 2025-08-27 14:39 | XMS_ITS | Encounter Summary ---
Author Organization [employer] Address [address] [place] [address] Care Team Providers Care Charge Loader Name Role Phone Name, Baltazar CARO Primary Care Provider [phone] Adilene Medrano PharmD Unavailable [phone] Reason for Visit * Reason Comments Med Refill Encounter Details Date Type Department Care Team ([facility] st Contact Info) Description 08/05/2025 Refill [facility] [address] [place], [place] [phone] Name, MD Baltazar [address] [place] [address] Type 2 diabetes mellitus with other specified [...] Description 09/29/2025 2:15 PM EST Office Visit [address] [address] Baltazar Hines MD [address] [place] [address] 11/04/2025 2:30 PM EST Medication Management [address] [address] Adilene Medrano PharmD [address] [place] [address] documented as of this encounter Visit Diagnoses Diagnosis Type 2 diabetes mellitus with other specified complication, without long-term current use of insulin (HCC) documented in this encounter Additional Health Concerns Assessment Noted Time PHQ-9 Depression Total Score: 10 025 3:01 PM EDT documented as of this encounter Care Teams Charge Loader Relationship Specialty Start Date End Date Baltazar Hines MD [address] [place] [address] PCP - General Family Medicine 10/03/18 Adilene Medrano PharmD [address] [place] [address] [place] [address] Pharmacist Internal Medicine 02/15/25 documented as of this encounter
--- OUTSIDE RECORDS SUMMARY | 2025-08-27 14:39 | XMS_ITS | Encounter Summary ---
Author Organization [employer] Address [address] [place] [address] Care Team Providers Care Painter Structural Steel Name Role Phone Name, Baltazar CARO Primary Care Provider Adilene Medrano PharmD Unavailable [phone] Reason for Visit * Reason Onset Date Comments Created In Error 07/17/2024 Encounter Details Date Type Department Care Team ([facility] st Contact Info) Description 07/17/2024 Telephone [facility] [address] [place], [place] [phone] Name, MD Baltazar [address] [place] [address] Created In Error Social History Tobacco Use [...] Description 09/29/2025 2:15 PM EST Office Visit [address] [address] Name, MD Baltazar [address] [place] [address] 11/04/2025 2:30 PM EST Medication Management [address] [address] Adilene Medrano PharmHaley [address] [place] [address] documented as of this encounter Visit Diagnoses Not on filedocumented in this encounter Additional Health Concerns Assessment Noted Time PHQ-9 Depression Total Score: 0 01/10/20 24 3:12 PM EDT documented as of this encounter Care Teams Painter Structural Steel Relationship Specialty Start Date End Date NameBaltazar MD [address] [place] [address] PCP - General Family Medicine 10/03/18 Adilene Medrano, PharmD [address] [place] [address] Pharmacist Internal Medicine 4/28/25 documented as of this encounter
--- OUTSIDE RECORDS SUMMARY | 2025-08-27 14:39 | XMS_ITS | Encounter Summary ---
Author Organization [employer] Address [address] [place] [address] Care Team Providers Care Pompom Maker Name Role Phone Name, Baltazar CARO Primary Care Provider [phone] Adilene Medrano PharmD Unavailable [phone] Reason for Visit * Reason Onset Date Comments Med Refill 03/04/2024 Encounter Details Date Type Department Care Team (Late st Contact Info) Description 03/04/2024 Refill [facility] [address] [place], [place] [phone] Name, MD Baltazar [address] [place], [place] [phone] Social History Tobacco Use Types Packs/Day Years [...] 09/29/2025 2:15 PM EST Office Visit [address] [address] Name, MD Baltazar [address] [place] [address] 11/04/2025 2:30 PM EST Medication Management [address] [address] Adilene Medrano PharmD [address] [place] [address] documented as of this encounter Visit Diagnoses Not on filedocumented in this encounter Additional Health Concerns Assessment Noted Time PHQ-9 Depression Total Score: 0 01/10/20 24 3:12 PM EDT documented as of this encounter Care Teams Pompom Maker Relationship Specialty Start Date End Date Name, MD Baltazar [address] [place] [address] [phone] PCP - General Family Medicine 10/03/18 Adilene Medrano PharmD [address] [place] [address] [phone] Pharmacist Internal Medicine 02/15/25 documented as of this encounter
--- OUTSIDE RECORDS SUMMARY | 2025-08-27 14:39 | XMS_ITS | Encounter Summary ---
Author Organization [employer] Address [address] [place] [address] Care Team Providers Care Mounter Hand Name Role Phone Name, Baltazar CARO Primary Care Provider [phone] Adilene Medrano PharmD Unavailable [phone] Reason for Visit * Reason Comments Med Refill Encounter Details Date Type Department Care Team ([facility] st Contact Info) Description 06/10/2025 [facility] [address] [place], [place] [phone] Name, MD Baltazar [address] [place] [address] Social History Tobacco Use Types Packs/Day Years [...] Description 09/29/2025 2:15 PM EST Office Visit [address] [address] Name, MD Baltazra [address] [place] [address] 11/04/2025 2:30 PM EST Medication Management [address] [address] Adilene Medrano PharmD [address] [place] [address] documented as of this encounter Visit Diagnoses Not on filedocumented in this encounter Additional Health Concerns Assessment Noted Time PHQ-9 Depression Total Score: 025 3:01 PM EDT documented as of this encounter Care Teams Mounter Hand Relationship Specialty Start Date End Date Name, MD Baltazar [address] [place] [address] PCP - General Family Medicine 10/03/18 Adilene Medrano PharmD [address] [place] [address] Pharmacist Internal Medicine 02/15/25 documented as of this encounter
--- OUTSIDE RECORDS SUMMARY | 2025-08-27 14:39 | XMS_ITS | Encounter Summary ---
Author Organization [employer] Address [address] [place] [address] Care Team Providers Care Urinalysis Technician Name Role Phone NameBaltazar MD Primary Care Provider [phone] Adilene Medrano PharmD Unavailable [phone] Reason for Visit * Reason Comments Med Refill Encounter Details Date Type Department Care Team (Late Contact Info) Description 07/14/2023 Refill [facility] [address] [place] [address] [phone] Baltazar Hines MD [address] [place] [address] [phone] Social History Tobacco Use Types Packs/Day Years [...] Description 09/29/2025 2:15 PM EST Office Visit [facility] [address] [place] [address] [phone] Baltazar Hines MD [address] [place] [address] 11/04/2025 2:30 PM EST Medication Management [facility] [address] [place] [address] Adilene Medrano PharmD [address] [place] [address] documented as of this encounter Visit Diagnoses Not on filedocumented in this encounter Additional Health Concerns Assessment Noted Time PHQ-9 Depression Total Score: 0 10/10/20 22 3:39 PM EST documented as of this encounter Care Teams Urinalysis Technician Relationship Specialty Start Date End Date Name, MD Baltazar [address] [place] [address] [phone] PCP - General Family Medicine 10/03/18 Adilene Medrano PharmD [address] [place] [address] [phone] Pharmacist Internal Medicine 02/15/25 documented as of this encounter
--- OUTSIDE RECORDS SUMMARY | 2025-08-27 14:39 | XMS_ITS | Encounter Summary ---
Author Organization [employer] Address [address] [facility] [address] [place] [address] Care Team Providers Care Security Advisor Name Role Phone Name, Baltazar CARO Primary Care Provider [phone] Adilene Medrano PharmD Unavailable [phone] Encounter Details Date Type Department Care Team ([facility] Contact Info) Description 08/20/2025 Results Follow-Up [facility] [address] [place] [address] Roro Mckeon NP [address] [place] [address] XR Chest 2 Views Social History Tobacco Use Types Packs/Day Years [...] encounter Miscellaneous Notes * Telephone Encounter - Candy Willard RN - 08/24/2025 10:17 AM EST Tc to pt via S ID: [id number] to let them know per covering provider - X- ray did not reveal any fractures resulting from the fall, however shows that the right side of your diaphragm the musclethat helps you breathe is sitting a little higher than usual. This can happen if the nerve that controls it (called the phrenic nerve) isn???t working at full strength. Sometimes this is temporary (???weakness???), and sometimes it can be longer-lasting (???paralysis???). The X-ray also shows some curving of your spine (scoliosis) and [id number] changes in the bones of your back (spondylosis) which are common, especially as we get older. These are not usually serious. Please inform us if youhave any difficulty breathing or respiratory issues. . Pt denies any signs of difficulty breathing or signs of respiratory issues. Pt reports they will follow up with their PCP at their upcoming appointment to discuss further. Pt denies any questions or concern at this time and agrees with plan. Ptis to follow up with PCP prn. * Telephone Encounter - Candy Willard RN - 08/24/2025 10:17 AM EST ----- Message from Roro Mckeon sent at 08/20/2025 6:02 PM EDT ----- Unsuccessful call to patient with X-ray results. Left VM; Please call patient Saturday to inform of the following: -- X-ray did not reveal any fractures resulting from the fall, however shows that the right side ofyour diaphragm the muscle that helps you breathe is sitting a little higher than usual. This can happen if the nerve that controls it (called the phrenic nerve) isn???t working at full strength. Sometimes this is temporary (???weakness???), and sometimes it can be longer-lasting (???paralysis???). The X-ray also shows some curving of your spine (scoliosis) and [id number] changes in the bones of your back (spondylosis) which are common, especially as we get older. These are not usually serious. Please inform us if you have any difficulty breathing or respiratory issues. ----- Message ----- From: Cody Caputo Results In Sent: 08/20/2025 3:47 PM EDT To: Roro Mckeon NP documented in this encounter Plan of Treatment Upcoming Encounters Date Type Department Care Team (Late st Contact Info) Description 09/29/2025 2:15 PM EST Office Visit [facility] [address] [place] [id number] Name, MD Baltazar [address] [place] [phone] 11/04/2025 2:30 PM EST Medication Management [facility] [address] [place] [address] [phone] Adilene Medrano, PharmD [address] [place] [phone] documented as of this encounter Visit Diagnoses Not on filedocumented in this encounter Additional Health Concerns Assessment Noted Time PHQ-9 Depression Total Score: 10 07/07/2 025 3:01 PM EDT documented as of this encounter Care Teams Security Advisor Relationship Specialty Start Date End Date Name, MD Baltazar [address] [place] [address] PCP - General Family Medicine 10/03/18 Adilene Medrano PharmD [address] [place] [address] Pharmacist Internal Medicine 02/15/25 documented as of this encounter
--- OUTSIDE RECORDS SUMMARY | 2025-08-27 14:39 | XMS_ITS | Encounter Summary ---
Author Organization [employer] Address [address] [place] [id number] Care Team Providers Care Protective Officer Name Role Phone Name, Baltazar CARO Primary Care Provider [phone] Adilene Medrano PharmD Unavailable [phone] Reason for Visit * Reason Onset Date Comments Med Refill 12/06/2024 Encounter Details Date Type Department Care Team (Late st Contact Info) Description 12/06/2024 Refill [facility] [address] [place], [place] [phone] Name, MD Baltazar [address] [place], [place] [phone] Social History Tobacco Use Types Packs/Day Years [...] 09/29/2025 2:15 PM EST Office Visit [address] [address] Name, MD Baltazar [address] [place] [phone] 11/04/2025 2:30 PM EST Medication Management [address] [address] Adilene Medrano PharmD [address] [place] [phone] documented as of this encounter Visit Diagnoses Not on filedocumented in this encounter Additional Health Concerns Assessment Noted Time PHQ-9 Depression Total Score: 0 01/10/20 24 3:12 PM EDT documented as of this encounter Care Teams Protective Officer Relationship Specialty Start Date End Date Name, MD Baltazar [address] [place] [address] [phone] PCP - General Family Medicine 10/03/18 Adilene Medrano PharmD [address] [place] [address] [phone] Pharmacist Internal Medicine 02/15/25 documented as of this encounter
== END 2025-08-27 13:08 | disposition home or self-care (01) ==
LOC: HO.HUSH 12:27
PROVIDERS: PCP Internal Medicine Geriatric Medicine; Visit Provider Urology
DX: C61 Malignant neoplasm of prostate (principal); R39.12 Poor urinary stream
CPT/HCPCS: 99213

== ENCOUNTER → 2025-08-27 12:26 | Outpatient (BNVA) | payer MEDICARE, SELFPAY | PROVIDERS: PCP Internal Medicine Geriatric Medicine; Visit Provider Urology | DX: R39.12 Poor urinary stream (principal); R39.11 Hesitancy of micturition; C61 Malignant neoplasm of prostate | CPT/HCPCS: 51798; 99212 ==

== ENCOUNTER 2025-09-27 11:37 | Outpatient (REF) | payer MEDICARE, SELFPAY ==
[2025-09-27 13:11] LABS: Microalbum/Creatinine Ratio Ur 12.3 ug/mg cr (<30)
[2025-09-27 13:26] LABS: Anion Gap 13 (12-20); Blood Urea Nitrogen 30 mg/dL (9-16); Calcium 9.5 mg/dL (8.4-10.2); Carbon Dioxide 26 mmol/L (22-29); Chloride 106 mmol/L (96-108); Estimated Glomerular Filt Rate 41; Potassium 4.2 mmol/L (3.3-5.1); Sodium 141 mmol/L (135-145)
== END 2025-09-27 11:38 | disposition home or self-care (01) ==
LOC: HO.LAB 11:37
PROVIDERS: PCP Internal Medicine Geriatric Medicine; Visit Provider Internal Medicine Geriatric Medicine
DX: N18.31 Chronic kidney disease, stage 3a (principal)
CPT/HCPCS: 36415; 80048; 82043; 82570